=== PATIENT | female | born 1945 | race Caucasian/White ===

== ENCOUNTER 2017-06-22 11:11 | Emergency (ER) | payer MEDICARE, MEDICAID ==
[~2017-06-22] VITALS: Ht 165.1 cm; Wt 63.5 kg
[~2017-06-22 11:11] MED LIST: ACETAMINOPHEN325 M1 ORAL; AMBIEN10 MG ORAL; ATIVAN0.5 MG ORAL; ATIVAN1 MG ORAL; BACLOFEN10 MG ORAL; BACTRIM-DS1 EA ORAL; CATAPRES0.2 MG ORAL; CELEBREX200 MG ORAL; CEPHALEXIN250 M1 ORAL; CLONIDINE0.1 MG GT; CLONIDINE0.1 MG ORAL; ENALAPRIL MALE2.5 MG ORAL; ENALAPRIL MALEA20 MG ORAL; ESCITALOPRAM OX10 MG ORAL; HEPARIN SO5000 UNIT2 SUBQ; INDERAL10 MG ORAL; LORAZEPAM0.5 MG ORAL; LORAZEPAM1 MG ORAL; LYRICA20 MG/1 ML ORAL; LYRICA25 MG ORAL; MIRTAZAPINE15 M3 ORAL; NKM; NORCO 10/3251 EA ORAL; NORCO 5-325 TA1 EACH ORAL; ONDANSETRON4 MG/2 M2 ORAL; OXYCODONE HCL20 M1 ORAL; PERCOCET 5-3251 EACH ORAL; PREVACID15 MG ORAL; PROCHLORPERAZINE5 MG ORAL; PROTONIX40 MG ORAL; SEROQUEL25 MG ORAL; SOMA250 MG ORAL; UNOBMED; VASOTEC10 MG ORAL; VICODIN ES 7.51 EACH ORAL
[2017-06-22 11:24] VITALS: BP 140/64
[2017-06-22] MEDS ORDERED: KEFLEX500 MG ORAL (11:55)
[2017-06-22] MEDS ORDERED: BACTRIM DS TAB1 EAC1 ORAL (11:55)
[2017-06-22] MEDS ORDERED: Lidocaine 1% Plain 30 ml INJ ONE (12:00)
[2017-06-22 12:31] VITALS: BP 144/71
--- NOTE | 2017-06-22 18:47 | Emergency Room Report ---
History of Present Illness General Chief Complaint: Skin Rash/Abscess Source: Patient Present Illness HPI Patient is 72-year-old female who presented after increased rash to her right lower extremity. A rash been noticed today. Patient gradual onset of symptoms. The patient had not been having any fever. She is a prior history of chronic dementia. She had not been vomiting. The patient was having some increase pain to the area Allergies: Coded Allergies: MORPHINE (Verified Allergy, Intermediate, HALLUCINATIONS, 03/03/13) Patient History Past Medical History: see triage record Reviewed Nursing Documentation: PMH: Agreed, PSxH: Agreed Nursing Documentation-PMH Past Medical History: No History, Except For Hx Cardiac Problems: Yes - heart murmur Hx Hypertension: Yes Hx Pacemaker: No Hx Asthma: No Hx COPD: No Hx Diabetes: No Hx Cancer: No Hx Gastrointestinal Problems: No Hx Dialysis: No History Of Psychiatric Problem: No Hx Neurological Problems: No Hx Cerebrovascular Accident: No Hx Dementia: Yes Hx Seizures: No Hx Concentration Difficulty: Yes Hx Dizziness: Yes - Not bad at times Hx Syncope: Yes Hx Headaches: Yes - Migraines Hx Numbness: Yes Hx Weakness: Yes Hx Fatigue: Yes Review of Systems All Other Systems: limited - by mental status Physical Exam Vital Signs Date Time Temp Pulse Resp B/P (MAP) Pulse Ox O2 Delivery O2 Flow Rate FiO2 06/22/17 11:14 98.2 78 14 154/84 98 Room Air General Appearance: well appearing, no apparent distress, alert, GCS 15 Head: normocephalic, atraumatic ENT: hearing grossly normal, normal voice Neck: full range of motion, supple Respiratory: no respiratory distress, speaking full sentences Cardiovascular #1: normal inspection, no edema Musculoskeletal: no calf tenderness Neurologic: normal gait Psychiatric: mood/affect normal Skin: other - fluctuant area to right thigh, erythema Procedures Incision and Drainage Incision and Drainage : Site: right thigh Blade Size: 11 I & D Procedure: betadine prep, sterile drapes applied, sterile dressing applied, gauze wick placed Wound Location: lower extremity Wound's Depth, Shape: superficial Wound Length (cm): 1 Anesthesia: 1% Lidocaine Patient Tolerated: Well Complications: None Medical Decision Making Diagnostic Impression: Primary Impression: Cellulitis of thigh ER Course Patient presented for skin rash. Differential diagnosis included was not limited to abscess, cellulitis, folliculitis. The patient was consented for incision and drainage. There was no purulent material with incision. The patient was given prescription for Bactrim and Keflex. The patient was advised of wound rechecked in 2-3 days Patient is advised to return if any worsening condition or if any changes in status that are concerning. Last Vital Signs Date Time Temp Pulse Resp B/P (MAP) Pulse Ox O2 Delivery O2 Flow Rate FiO2 06/22/17 12:31 98.0 68 19 144/71 94 Room Air Status: improved Disposition: HOME, SELF-CARE Condition: Stable Scripts Trimethoprim/Sulfamethoxazole 160/800* (BACTRIM DS TABLET*) 1 Each Tablet 1 TAB ORAL Q12H, #14 TAB 0 Refills Prov: Ricky Randall 06/22/17 Cephalexin* (KEFLEX*) 500 Mg Capsule 500 MG ORAL Q6H, #28 CAP 0 Refills Prov: Ricky Randall 06/22/17 Referrals: NOT CHOSEN IPA/,REFERRING Patient Instructions: Cellulitis Ricky Randall Jun 22, 2017 18:47
== END 2017-06-22 12:31 | disposition home or self-care (01) ==
LOC: EMR 12:10
DX: L03.115 Cellulitis of right lower limb (principal); I10 Essential (primary) hypertension; F03.90 Unspecified dementia, unspecified severity, without behavioral disturbance, psychotic disturbance, mood disturbance, and anxiety
CPT/HCPCS: 10060; 99284; J2001

== ENCOUNTER 2019-12-06 18:48 | Emergency (ER) | payer MEDICARE, MEDICAID ==
[~2019-12-06] VITALS: Ht 170.2 cm; Wt 72.6 kg
[~2019-12-06 18:48] MED LIST changes: +BACTRIM DS TAB1 EAC1 ORAL; +KEFLEX500 MG ORAL
[2019-12-06] MEDS ORDERED: DONEPEZIL HCL5 M2 ORAL (19:16)
[2019-12-06] MEDS ORDERED: OMEPRAZOLE20 M2 ORAL (19:16)
--- NOTE | 2019-12-06 19:18 | NUR ---
ED Nurse Note: Pt was wheeled in to ED for C/O UTI and due to having UTI, pt hit her left foot to edge of the bed. bruising and swelling noted to left foot.
--- NOTE | 2019-12-06 19:23 | NUR ---
ED Nurse Note: PT taken to x ray
--- NOTE | 2019-12-06 19:42 | Diagnostic Imaging Report ---
EXAM: XR Left Foot Complete, 3 or More Views CLINICAL HISTORY: TRAUMA TECHNIQUE: Frontal, lateral and oblique views of the left foot. COMPARISON: No relevant prior studies available. FINDINGS: There is a nondisplaced fracture of the left fifth proximal phalanx. Forefoot swelling. No radiopaque foreign body. Diffuse osteopenia. Degenerative changes of multiple interphalangeal joints. Mild-moderate osteoarthrosis of the left first MTP joint. Posterior and plantar calcaneal spurs. IMPRESSION: Nondisplaced fracture of the left fifth proximal phalanx.
[2019-12-06] MEDS ORDERED: Tylenol #3 tab (300mg/30mg) ORAL ONE (20:00)
--- NOTE | 2019-12-06 20:06 | NUR ---
ED Nurse Note: splint applied to left foot by drapery cutter
[2019-12-06 20:25] LABS: APPEARANCE,URINE CLEAR; BILIRUBIN, URINE 2+ (NEGATIVE); COLOR,URINE BROWN; GLUCOSE, URINE (UA) NEGATIVE (NEGATIVE); KETONES,URINE NEGATIVE (NEGATIVE); LEUKOCYTE ESTERASE ,URINE NEGATIVE (NEGATIVE); NITRITE,URINE POSITIVE (NEGATIVE); PH,URINE 5 (4.5-8.0); PROTEIN,URINE 1+ (NEGATIVE); UROBILINOGEN,URINE 4 MG/DL (0.0-1.0)
--- NOTE | 2019-12-06 20:33 | Emergency Room Report ---
History of Present Illness General Chief Complaint: Lower Extremity Injury Source: Patient, Family Member Present Illness HPI 74-year-old female with no known significant past medical history is here for left foot pain and swelling due to tripping this morning when trying to get out of bed. Obvious ecchymosis and swelling noted. Has full range of motion of toes. Denies tingling numbness. Denies pain radiation. Also complains of urinary frequency and urgency. Has not taken medication for symptom relief. Denies any abdominal pain, nausea vomiting, fever and chills. Denies chest pain , fever, cough and congestion. Denies taking any blood thinner Allergies: Coded Allergies: MORPHINE (Verified Allergy, Intermediate, HALLUCINATIONS, 03/03/13) COVID-19 Screening Contact w/high risk pt: No Recent Travel to affected area: No Experienced COVID-19 symptoms?: No Patient History Past Medical History: see triage record Past Surgical History: none Pertinent Family History: none Now: No Immunizations: UTD Reviewed Nursing Documentation: PMH: Agreed; PSxH: Agreed Nursing Documentation-PMH Hx Cardiac Problems: Yes - heart murmur Hx Hypertension: Yes Hx Pacemaker: No Hx Asthma: No Hx COPD: No Hx Diabetes: No Hx Cancer: No Hx Gastrointestinal Problems: No Hx Dialysis: No Hx Neurological Problems: No Hx Cerebrovascular Accident: No Hx Dementia: Yes Hx Seizures: No Hx Concentration Difficulty: Yes Hx Dizziness: Yes - Not bad at times Hx Syncope: Yes Hx Headaches: Yes - Migraines Hx Numbness: Yes Hx Weakness: Yes Hx Fatigue: Yes Review of Systems All Other Systems: negative except mentioned in HPI Physical Exam Vital Signs Date Time Temp Pulse Resp B/P (MAP) Pulse Ox O2 Delivery O2 Flow Rate FiO2 12/06/19 19:10 99.1 103 19 152/86 (108) 96 Room Air Sp02 EP Interpretation: reviewed, normal General Appearance: no apparent distress, alert, GCS 15, non-toxic Head: normocephalic, atraumatic Eyes: bilateral eye normal inspection, bilateral eye PERRL ENT: hearing grossly normal, normal pharynx, no angioedema, normal voice Neck: full range of motion, supple/symm/no masses Respiratory: chest non-tender, lungs clear, normal breath sounds, no rhonchi, speaking full sentences Cardiovascular #1: regular rate, rhythm, no edema Cardiovascular #2: 2+ dorsalis pedis (R), 2+ dorsalis pedis (L) Gastrointestinal: normal bowel sounds, non tender, soft, non-distended, no guarding, no rebound Rectal: deferred Genitourinary: no CVA tenderness Musculoskeletal: back normal, tender - Left lateral foot, swelling - Left foot Neurologic: alert, motor strength/tone normal, oriented x3, sensory intact, responsive, speech normal Psychiatric: judgement/insight normal, memory normal, mood/affect normal, no suicidal/homicidal ideation Skin: no rash Lymphatic: no adenopathy Procedures Splinting Splinting : Consent: Verbal Location: Left foot Splint: poserior short Pre-Proc Neuro Vasc Exam: normal Post-Proc Neuro Vasc Exam: normal Patient Tolerated: Well Complications: None Medical Decision Making PA Attestation All diagnoses and treatment plans were reviewed and discussed with my supervising physician Dr. Randolph Diagnostic Impression: Primary Impression: Nondisplaced fracture of fifth left metatarsal bone Additional Impression: UTI (urinary tract infection) ER Course 74-year-old female with no known significant past medical history is here for left foot pain and swelling due to tripping this morning when trying to get out of bed. Obvious ecchymosis and swelling noted. Has full range of motion of toes. Denies tingling numbness. Denies pain radiation. Also complains of urinary frequency and urgency. Has not taken medication for symptom relief. Denies any abdominal pain, nausea vomiting, fever and chills. Denies chest pain , fever, cough and congestion. Denies taking any blood thinner Ddx considered but are not limited to: foot fracture, foot sprain, foot contusion, foot strain Vital signs: are WNL, pt. is afebrile H&PE are most consistent with: Nondisplaced left fifth metatarsal fracture, UTI ORDERS: foot Xray, Keflex, Motrin, Tylenol 3 ED INTERVENTIONS: Motrin, Tylenol 3, Keflex, splinting DISCHARGE: At this time pt. is stable for d/c to home. Will provide printed patient care instructions, and any necessary prescriptions. Care plan and follow up instructions have been discussed with the patient prior to discharge. Patient to follow-up with information assurance specialist, take medication as directed, if worsening symptoms return to the emergency room Other X-Ray Diagnostic Results Other X-Ray Diagnostic Results : X-Ray ordered: Left foot # of Views/Limited Vs Complete: 3 View Indication: Pain EP Interpretation: Yes PA Xray: Interpretation reviewed, by supervising MD, and agrees with findings. Interpretation: other - Fracture left fifth metatarsal Impression: Other - Left fifth metatarsal fracture Electronically Signed by: Анна THOMAS Scribe Text INDINGS: There is a nondisplaced fracture of the left fifth proximal phalanx. Forefoot swelling. No radiopaque foreign body. Diffuse osteopenia. Degenerative changes of multiple interphalangeal joints. Mild-moderate osteoarthrosis of the left first MTP joint. Posterior and plantar calcaneal spurs. IMPRESSION: Nondisplaced fracture of the left fifth proximal phalanx. Last Vital Signs Date Time Temp Pulse Resp B/P (MAP) Pulse Ox O2 Delivery O2 Flow Rate FiO2 12/06/19 19:10 99.1 103 19 152/86 (108) 96 Room Air Disposition: HOME, SELF-CARE Condition: Stable Scripts Ibuprofen* (MOTRIN*) 600 Mg Tablet 600 MG ORAL Q8H PRN for FOR PAIN, #30 TAB 0 Refills Prov: Анна Mccormick 12/06/19 Cephalexin* (KEFLEX*) 500 Mg Capsule 500 MG ORAL EVERY 12 HOURS for 7 Days, #14 CAP 0 Refills Prov: Анна Mccormick 12/06/19 Acetaminophen With Codeine (T#3) (TYLENOL #3 TAB*) Y Tab 1 TAB ORAL BEDTIME PRN for For Pain for 3 Days, #6 TAB Prov: Анна Mccormick 12/06/19 Referrals: NON PHYSICIAN (PCP) Patient Instructions: Metatarsal Fracture With Rehab-SportsMed, Urinary Tract Infection, [id number] Additional Instructions: Take medication as directed, follow-up with information assurance specialist regarding your foot fracture, take splint off if extreme swelling underneath the splint. If worsening symptoms return to the emergency room. Анна Mccormick December 06, 2019 20:33
[2019-12-06] MEDS ORDERED: ACETAMINOPHEN-1 EAC1 ORAL (20:35)
[2019-12-06] MEDS ORDERED: CEPHALEXIN500 MG ORAL (20:35)
[2019-12-06] MEDS ORDERED: IBUPROFEN600 M1 ORAL (20:35)
[2019-12-06] MEDS ORDERED: Cephalexin 500mg cap ORAL ONE (20:45)
[2019-12-06 20:56] VITALS: BP 155/82
--- NOTE | 2019-12-06 20:56 | NUR ---
ER DISCHARGE NOTE: Patient is cleared to be discharged per ERMD, pt is aox4, on room air, with stable vital signs. pt was given dc and prescription instructions, pt was able to verbalize understanding, pt id band removed without complications. pt took all belongings. pt was assisted to prrivate car with hospital w/c.
== END 2019-12-06 20:56 | disposition home or self-care (01) ==
LOC: EMR 19:01
DX: S92.355A Nondisplaced fracture of fifth metatarsal bone, left foot, initial encounter for closed fracture (principal); N39.0 Urinary tract infection, site not specified; W01.0XXA Fall on same level from slipping, tripping and stumbling without subsequent striking against object, initial encounter; Y92.9 Unspecified place or not applicable; Z88.6 Allergy status to analgesic agent; I10 Essential (primary) hypertension; F03.90 Unspecified dementia, unspecified severity, without behavioral disturbance, psychotic disturbance, mood disturbance, and anxiety
CPT/HCPCS: 29515; 81003; 99283

== ENCOUNTER 2019-12-08 14:26 | Inpatient (IN) | payer MEDICARE, MEDICAID ==
[~2019-12-08] VITALS: Ht 165.1 cm; Wt 89.4 kg
[~2019-12-08 14:26] MED LIST changes: +ACETAMINOPHEN-1 EAC1 ORAL; +CEPHALEXIN500 MG ORAL; +DONEPEZIL HCL5 M2 ORAL; +IBUPROFEN600 M1 ORAL; +OMEPRAZOLE20 M2 ORAL
[2019-12-08 14:42] VITALS: BP 112/56
--- NOTE | 2019-12-08 14:42 | NUR ---
pt brought in by family member via w/c assistance. per family member, PT was here 2 days ago and was diagnosed with UTI. PT appears to be more confused today. pt also has a fx to left ankle
--- NOTE | 2019-12-08 14:46 | NUR ---
ED Nurse Note: pt taken to CT
--- NOTE | 2019-12-08 14:57 | NUR ---
ED Nurse Note: back from ct
--- NOTE | 2019-12-08 15:08 | Diagnostic Imaging Report ---
EXAM: CT Head Without Intravenous Contrast CLINICAL HISTORY: ALOC TECHNIQUE: Axial computed tomography images of the head/brain without intravenous contrast. CTDI is 53.4 mGy and DLP is 992.1 mGy-cm. One or more of the following dose reduction techniques were used: automated exposure control, adjustment of the mA and/or kV according to patient size, use of iterative reconstruction technique. COMPARISON: 12/29/2014 FINDINGS: Brain: No acute infarct or hemorrhage identified. No extra-axial fluid collection. No mass effect or midline shift. Scattered areas of hypoattenuation in the supratentorial white matter likely represent chronic small vessel ischemic changes. Ventricles and sulci: Prominence of the ventricles and sulci is likely secondary to cerebral volume loss. Bones: Normal. No bony lesion or fracture. Subcutaneous tissues: Normal. Sinuses: Mild mucosal thickening in the right maxillary sinus. Mastoid air cells: Normal. Orbits: Bilateral lens implants. Other: Cerumen in the external auditory canals. IMPRESSION: 1. No acute intracranial abnormality. 2. Chronic small vessel ischemic changes and cerebral volume loss.
--- NOTE | 2019-12-08 15:15 | Diagnostic Imaging Report ---
EXAM: XR Chest, 1 View CLINICAL HISTORY: PAIN TECHNIQUE: Frontal view of the chest. COMPARISON: Chest radiograph on 10/13/2014 FINDINGS: Hardware: None. Lungs/pleura: Bibasilar opacities may represent atelectasis versus pneumonia. Prominent interstitial lung markings may represent chronic interstitial lung changes versus infectious/inflammatory process versus pulmonary vasculature congestion. No pleural effusion or pneumothorax. Elevation of the right hemidiaphragm, increased compared to prior exam. Heart/mediastinum: Increased enlargement of the cardiac silhouette. Atherosclerotic calcifications of the aorta. Soft tissues: Unremarkable. Bones: No acute fracture. Upper abdomen: Normal. IMPRESSION: Lungs/pleura: Bibasilar opacities may represent atelectasis versus pneumonia. Prominent interstitial lung markings may represent chronic interstitial lung changes versus infectious/inflammatory process versus pulmonary vasculature congestion.
--- NOTE | 2019-12-08 15:35 | NUR ---
ED Nurse Note: urinary catheter 16F was placed, patient tolerated procedure well. Blood and urine specimen collected sent down
[2019-12-08 15:46] LABS: APPEARANCE,URINE SLIGHTLY CLOUDY; BILIRUBIN, URINE 2+ (NEGATIVE); GLUCOSE, URINE (UA) NEGATIVE (NEGATIVE); KETONES,URINE 1+ (NEGATIVE); LEUKOCYTE ESTERASE ,URINE 3+ (NEGATIVE); NITRITE,URINE POSITIVE (NEGATIVE); PH,URINE 5 (4.5-8.0); PROTEIN,URINE 1+ (NEGATIVE); UROBILINOGEN,URINE 1 MG/DL (0.0-1.0)
[2019-12-08 15:48] LABS: BASOPHILS % (AUTO) 0.7 % (0.0-2.0); EOSINOPHILS % (AUTO) 0.3 % (0.0-3.0); HEMATOCRIT 35.5 % (37.0-47.0); LYMPHOCYTES % (AUTO) 11.5 % (20.0-45.0); MEAN CORPUSCULAR VOLUME 97 FL (80-99); MONOCYTES % (AUTO) 5.1 % (1.0-10.0); NEUTROPHILS % (AUTO) 82.4 % (45.0-75.0); PLATELET COUNT 281 K/UL (150-450); RED BLOOD COUNT 3.67 M/UL (4.20-5.40); RED CELL DISTRIBUTION WIDTH 15.2 % (11.6-14.8); WHITE BLOOD COUNT 10.3 K/UL (4.8-10.8)
[2019-12-08 15:50] LABS: COLOR,URINE YELLOW
[2019-12-08 16:00] LABS: ANION GAP 11 mmol/L (5-15); BLOOD UREA NITROGEN 53 mg/dL (7-18); CALCIUM 9.2 MG/DL (8.5-10.1); CARBON DIOXIDE 25 MMOL/L (21-32); CHLORIDE 108 MMOL/L (98-107); CREATININE 3.4 MG/DL (0.55-1.30); POTASSIUM 5.5 MMOL/L (3.5-5.1); SODIUM 144 MMOL/L (136-145)
[2019-12-08 16:04] LABS: INR 0.9 (0.9-1.1)
[2019-12-08 16:14] LABS: ALANINE AMINOTRANSFERASE 73 U/L (12-78); ALBUMIN 3.2 G/DL (3.4-5.0); ALBUMIN/GLOBULIN RATIO 0.7 (1.0-2.7); ALKALINE PHOSPHATASE 225 U/L (46-116); ASPARTATE AMINO TRANSFERASE 80 U/L (15-37); BILIRUBIN,TOTAL 0.4 MG/DL (0.2-1.0); CKMB 1.4 NG/ML (0.0-3.6); CREATINE KINASE 89 U/L (26-308)
[2019-12-08] MEDS ORDERED: Insulin Human Regular 100units/ml 3ml IV ONE (16:15)
[2019-12-08] MEDS ORDERED: Calcium Gluconate 1gm/10ml vial IVP ONE (16:15)
[2019-12-08] MEDS ORDERED: Piperacillin/Tazobactam 3.375 GM in NS 110 ML IVPB ONE (16:15)
--- NOTE | 2019-12-08 16:46 | Emergency Room Report ---
History of Present Illness General Chief Complaint: Generalized Weakness Source: Patient (Анна Mccormick) Present Illness HPI 74-year-old female with history of dementia here complaining of 1 day of low appetite, altered level of consciousness, and low energy. Patient appears to be extremely fatigued. Patient was seen at [facility] 2 days ago for fracture of left foot. Patient was also diagnosed with UTI at that time. According to family member patient did take her antibiotic and took the pain medication as it was prescribed. Patient has been seen by her neurologist last visit 1 month ago and everything within normal limits. According to family member and caregiver patient appears to have this presentation after any UTI. Patient appears to be afebrile, denies chest pain, shortness of breath, cough and congestion. Oxygenation within normal limits. No unilateral generalized weakness noted. According to family member patient has been slurring for a few days. Patient is neurovascularly intact. Splint appears to be intact on left foot and ankle (Анна Mccormick) Allergies: Coded Allergies: MORPHINE (Verified Allergy, Intermediate, HALLUCINATIONS, 03/03/13) COVID-19 Screening Contact w/high risk pt: No Recent Travel to affected area: No Experienced COVID-19 symptoms?: No (Анна Mccormick) Patient History Past Medical History: see triage record Past Surgical History: none Pertinent Family History: none Last Menstrual Period: na Immunizations: UTD Reviewed Nursing Documentation: PMH: Agreed; PSxH: Agreed (Анна Mccormick) Nursing Documentation-PMH Hx Cardiac Problems: Yes - heart murmur Hx Hypertension: Yes Hx Pacemaker: No Hx Asthma: No Hx COPD: No Hx Diabetes: No Hx Cancer: No Hx Gastrointestinal Problems: No Hx Dialysis: No Hx Neurological Problems: No Hx Cerebrovascular Accident: No Hx Dementia: Yes Hx Seizures: No Hx Concentration Difficulty: Yes Hx Dizziness: Yes - Not bad at times Hx Syncope: Yes Hx Headaches: Yes - Migraines Hx Numbness: Yes Hx Weakness: Yes Hx Fatigue: Yes (Анна Mccormick) Review of Systems All Other Systems: negative except mentioned in HPI (Анна Mccormick) Physical Exam Vital Signs Date Time Temp Pulse Resp B/P (MAP) Pulse Ox O2 Delivery O2 Flow Rate FiO2 12/08/19 14:38 97.0 70 19 112/56 (74) 96 Room Air Sp02 EP Interpretation: reviewed, normal General Appearance: moderate distress Head: normocephalic, atraumatic Eyes: bilateral eye normal inspection, bilateral eye PERRL ENT: hearing grossly normal, normal pharynx, no angioedema, normal voice Neck: full range of motion, supple/symm/no masses Respiratory: chest non-tender, lungs clear, normal breath sounds, no rhonchi, no wheezing, speaking full sentences Cardiovascular #1: regular rate, rhythm, no edema, no murmur Cardiovascular #2: 2+ dorsalis pedis (R), 2+ dorsalis pedis (L) Gastrointestinal: normal bowel sounds, non tender, soft, non-distended, no guarding, no rebound Rectal: deferred Genitourinary: no CVA tenderness Musculoskeletal: back normal, no calf tenderness Neurologic: motor strength/tone normal, sensory intact, responsive - Responsive to painful stimuli however does not make sense when spoken to Psychiatric: judgement/insight normal, memory normal, mood/affect normal, no suicidal/homicidal ideation Skin: no rash Lymphatic: no adenopathy (Анна Mccormick) Medical Decision Making PA Attestation All diagnoses and treatment plans were reviewed and discussed with my supervising physician Dr. Villafuerte (Анна Mccormick) PA Attestation I participated in the care of this patient along with WILLIAM Zeng Briefly, this a 74-year-old female recently seen in the emergency department and treated for urinary tract infection 2 days ago coming in for altered mental status and generalized weakness. She is found to have a persistent urinary tract infection and though dimer was also elevated and chest x-ray concerning for possible bilateral opacities consistent with pneumonia. Patient does have an elevated d-dimer and lymphopenic which may represent a COVID-19 infection. She was placed in isolation and COVID swab ordered. IV antibiotics ordered for persistent urinary tract infection. CT scan of the head shows chronic changes but no acute injury, mass or bleed.Creatinine elevated at 3.4 with a BUN elevation of 53 consistent with acute kidney injury in the setting of urinary tract infection. Lactic acid within normal limits troponin negative. Potassium elevated at 5.5 without EKG changes. She was treated with insulin, dextrose and calcium. Receiving IV fluids. Will admit to telemetry relation (Fernie Villafuerte MD) Diagnostic Impression: Primary Impression: Hyperkalemia Additional Impressions: Sepsis ROBYN (acute kidney injury) Pneumonia Suspected 2019 novel coronavirus infection ER Course 74-year-old female with history of dementia here complaining of 1 day of low appetite, altered level of consciousness, and low energy. Patient appears to be extremely fatigued. Patient was seen at [facility] 2 days ago for fracture of left foot. Patient was also diagnosed with UTI at that time. According to family member patient did take her antibiotic and took the pain medication as it was prescribed. Patient has been seen by her neurologist last visit 1 month ago and everything within normal limits. According to family member and caregiver patient appears to have this presentation after any UTI. Patient appears to be afebrile, denies chest pain, shortness of breath, cough and congestion. Oxygenation within normal limits. No unilateral generalized weakness noted. According to family member patient has been slurring for a few days. Patient is neurovascularly intact. Splint appears to be intact on left foot and ankle Ddx considered but are not limited to: CVA, TIA, pulmonary embolism leading to stroke, DVT, hyperkalemia, ROBYN, urosepsis Vital signs: are WNL, pt. is afebrile H&PE are most consistent with: Altered level consciousness most likely secondary to urosepsis, ROBYN and hyperkalemia ORDERS: Head CT no contrast, sepsis work-up ER intervention: NS bolus, Zosyn Patient was admitted with diagnosis of altered level consciousness secondary to urosepsis, hyperkalemia, ROBYN to Dr. Choudhary under supervision of : Christo pt stable at time of admission (Анна Mccormick) EKG Diagnostic Results Rate: normal Rhythm: NSR ST Segments: no acute changes Other Impression No acute ST changes (Анна Mccormick) Chest X-Ray Diagnostic Results Chest X-Ray Diagnostic Results : Chest X-Ray Ordered: Yes # of Views/Limited/Complete: 1 View Indication: Other EP Interpretation: Yes PA Xray: Interpretation reviewed, by supervising MD, and agrees with findings. Interpretation: no consolidation, no effusion, no pneumothorax Impression: No acute disease Electronically Signed by: Анна THOMAS Scribe Text IMPRESSION: Lungs/pleura: Bibasilar opacities may represent atelectasis versus pneumonia. Prominent interstitial lung markings may represent chronic interstitial lung changes versus infectious/inflammatory process versus pulmonary vasculature congestion. (Анна Mccormick) CT/MRI/US Diagnostic Results CT/MRI/US Diagnostic Results : Imaging Test Ordered: CT head no contrast Impression FINDINGS: Brain: No acute infarct or hemorrhage identified. No extra-axial fluid collection. No mass effect or midline shift. Scattered areas of hypoattenuation in the supratentorial white matter likely represent chronic small vessel ischemic changes. Ventricles and sulci: Prominence of the ventricles and sulci is likely secondary to cerebral volume loss. Bones: Normal. No bony lesion or fracture. Subcutaneous tissues: Normal. Sinuses: Mild mucosal thickening in the right maxillary sinus. Mastoid air cells: Normal. Orbits: Bilateral lens implants. Other: Cerumen in the external auditory canals. IMPRESSION: 1. No acute intracranial abnormality. 2. Chronic small vessel ischemic changes and cerebral volume loss. (Анна Mccormick) Last Vital Signs Date Time Temp Pulse Resp B/P (MAP) Pulse Ox O2 Delivery O2 Flow Rate FiO2 12/08/19 14:42 97.0 70 19 112/56 96 Room Air (Анна Mccormick) Disposition: ADMITTED INPATIENT Condition: Stable Referrals: NOT CHOSEN IPA/,REFERRING (PCP) Анна Mccormick December 08, 2019 16:46 Fernie Villafuerte MD December 08, 2019 16:57
--- NOTE | 2019-12-08 18:05 | NUR ---
ED Nurse Note: Due to PUI patient was transfered from bed 02 to bed 07.
[2019-12-08 18:29] VITALS: BP 115/65
--- NOTE | 2019-12-08 18:45 | NUR ---
ED Nurse Note: Patient'sat went down to 88, placed patient on 2L via NC
--- NOTE | 2019-12-08 18:57 | NUR ---
ED Nurse Note: Patient BS droped to 70, 50% Dextrose was administered, will recheck BS in 15 min
--- NOTE | 2019-12-08 19:07 | NUR ---
HAND-OFF: Report given to KARTHIKEYAN Saucedo.
[2019-12-08 20:00] VITALS: BP 115/65
[2019-12-08] MEDS: Cefepime HCl 1 GM in D5W 55 ML IVPB SCH (20:30)
[2019-12-08 21:00] VITALS: BP 136/93
--- NOTE | 2019-12-08 21:00 | NUR ---
TRANSFER TO FLOOR: Patient transferred to as ordered, per Dr Fox. Report given to KARTHIKEYAN Falcon. Belongings and medications given to . Family and or S/O informed of transfer.
--- NOTE | 2019-12-08 21:00 | NUR ---
NURSE NOTES: Received report from KARTHIKEYAN Saucedo ED. Patient was transferred from ED to Telemetry via gurney accompanied by 1 staff member, without any incident. Patient was transferred to hospital bed via draw sheet method, placed on semi love's, gown changed, placed tele box on, SR on the monitor, 68bpm. Checked IV site and flushed. No erythema, bleeding or infiltration noted. With aranda catheter draining well to gravity. Body assessment done with no skin issues. Patient has a cast at left foot. Belongings list checked with transferring RN. Bed at lowest position, brakes on, bed alarm on, [id number]. Frequent rounding for safety needs.Call light within reach. Will continue to monitor. Received admitting orders from Dr. Choudhary.
--- NOTE | 2019-12-08 21:35 | Infectious Diseases Prog Note ---
Assessment/Plan Problems: (1) UTI (urinary tract infection) Assessment & Plan: Start cefepime empiric coverage pending urine culture (2) Dehydration Assessment & Plan: Continue IV fluid for hydration with close monitoring of electrolytes (3) Episode of generalized weakness Assessment & Plan: Suspect due to the above continue hydration and antibiotics avoid narcotics (4) Altered mental state Assessment & Plan: Suspect due to the above with dehydration and renal failure continue supportive care with fluid and antibiotics monitor closely in telemetry (5) ROBYN (acute kidney injury) Assessment & Plan: Suspect nonsteroidal anti-inflammatory medications induced with dehydration, continue hydration avoid nephrotoxic's, renal eval Subjective Allergies: Coded Allergies: MORPHINE (Verified Allergy, Intermediate, HALLUCINATIONS, 03/03/13) Objective Vital Signs Last 24 Hour Vital Signs Date Time Temp Pulse Resp B/P (MAP) Pulse Ox O2 Delivery O2 Flow Rate FiO2 12/08/19 18:29 98.4 74 19 115/65 96 Room Air 12/08/19 14:42 97.0 70 19 112/56 96 Room Air 12/08/19 14:42 70 19 Room Air 12/08/19 14:38 97.0 70 19 112/56 (74) 96 Room Air Height (Feet): 5 Height (Inches): 5.00 Weight (Pounds): 200 Laboratory Tests Test 12/08/19 15:25 White Blood Count 10.3 K/UL (4.8-10.8) Red Blood Count 3.67 M/UL (4.20-5.40) L Hemoglobin 11.0 G/DL (12.0-16.0) L Hematocrit 35.5 % (37.0-47.0) L Mean Corpuscular Volume 97 FL (80-99) Mean Corpuscular Hemoglobin 29.9 PG (27.0-31.0) Mean Corpuscular Hemoglobin Concent 30.9 G/DL (32.0-36.0) L Red Cell Distribution Width 15.2 % (11.6-14.8) H Platelet Count 281 K/UL (150-450) Mean Platelet Volume 9.5 FL (6.5-10.1) Neutrophils (%) (Auto) 82.4 % (45.0-75.0) H Lymphocytes (%) (Auto) 11.5 % (20.0-45.0) L Monocytes (%) (Auto) 5.1 % (1.0-10.0) Eosinophils (%) (Auto) 0.3 % (0.0-3.0) Basophils (%) (Auto) 0.7 % (0.0-2.0) Prothrombin Time 9.5 SEC (9.30-11.50) Prothromb Time International Ratio 0.9 (0.9-1.1) Activated Partial Thromboplast Time 27 SEC (23-33) D-Dimer 7.56 mg/L FEU (0.00-0.49) H Urine Color Yellow Urine Appearance Slightly cloudy Urine pH 5 (4.5-8.0) Urine Specific [place] 1.020 (1.005-1.035) Urine Protein 1+ (NEGATIVE) H Urine Glucose (UA) Negative (NEGATIVE) Urine Ketones 1+ (NEGATIVE) H Urine Blood Negative (NEGATIVE) Urine Nitrite Positive (NEGATIVE) H Urine Bilirubin 2+ (NEGATIVE) H Urine Ictotest Negative (NEGATIVE) Urine Urobilinogen 1 MG/DL (0.0-1.0) H Urine Leukocyte Esterase 3+ (NEGATIVE) H Urine RBC 0 /HPF (0 - 2) Urine WBC 60-80 /HPF (0 - 2) H Urine Squamous Epithelial Cells Many /LPF (NONE/OCC) H Urine Bacteria Many /HPF (NONE) H Urine Random Sodium Pending Sodium Level 144 MMOL/L (136-145) Potassium Level 5.5 MMOL/L (3.5-5.1) H Chloride Level 108 MMOL/L (98-107) H Carbon Dioxide Level 25 MMOL/L (21-32) Anion Gap 11 mmol/L (5-15) Blood Urea Nitrogen 53 mg/dL (7-18) H Creatinine 3.4 MG/DL (0.55-1.30) H Estimat Glomerular Filtration Rate 13.1 mL/min (>60) Glucose Level 95 MG/DL (74-106) Lactic Acid Level 0.90 mmol/L (0.4-2.0) Calcium Level 9.2 MG/DL (8.5-10.1) Total Bilirubin 0.4 MG/DL (0.2-1.0) Aspartate Amino Transf (AST/SGOT) 80 U/L (15-37) H Alanine Aminotransferase (ALT/SGPT) 73 U/L (12-78) Alkaline Phosphatase 225 U/L (46-116) H Total Creatine Kinase 89 U/L (26-308) Creatine Kinase MB 1.4 NG/ML (0.0-3.6) Creatine Kinase MB Relative Index 1.5 Troponin I 0.000 ng/mL (0.000-0.056) Pro-B-Type Natriuretic Peptide 618 pg/mL (0-125) H Total Protein 7.5 G/DL (6.4-8.2) Albumin 3.2 G/DL (3.4-5.0) L Globulin 4.3 g/dL Albumin/Globulin Ratio 0.7 (1.0-2.7) L Urine Opiates Screen Positive (NEGATIVE) H Urine Barbiturates Screen Negative (NEGATIVE) Phencyclidine (PCP) Screen Negative (NEGATIVE) Urine Amphetamines Screen Negative (NEGATIVE) Urine Benzodiazepines Screen Negative (NEGATIVE) Urine Cocaine Screen Negative (NEGATIVE) Urine Marijuana (THC) Screen Negative (NEGATIVE) Current Medications Medications (Trade) Dose Ordered Sig/Myron Route PRN Reason Start Time Stop Time Status Last Admin Dose Admin Cefepime HCl 1 gm/ Dextrose 55 ml @ 110 mls/hr Q24H IVPB 12/08/19 21:00 12/15/19 20:59 12/08/19 20:30 Reece Rocha M.D. December 08, 2019 21:35
[2019-12-08] MEDS ORDERED: Cefepime HCl 1 GM in D5W 55 ML IVPB SCH (21:45)
[2019-12-08] MEDS ORDERED: Hydromorphone 0.5mg/0.5ml inj IVP PRN (22:00)
[2019-12-08] MEDS ORDERED: Sodium Polystyrene Sulfonate 15gm Powder ORAL SCH (22:00)
[2019-12-08] MEDS ORDERED: Piperacillin/Tazobactam 3.375 GM in NS 110 ML IVPB SCH (22:00)
[2019-12-08] MEDS ORDERED: HYDROcodone/Acetamin 5/325 tab ORAL PRN (22:00)
[2019-12-09] VITALS: BP 129/91
[2019-12-09] MEDS: LORazepam Inj 2mg/ml 1ml IV PRN (00:32)
[2019-12-09 04:00] VITALS: BP 124/81
[2019-12-09] MEDS: NovoLOG Insulin Flexpen SUBQ SCH ×4 (06:30→21:00)
[2019-12-09 07:36] LABS: BASOPHILS % (AUTO) 0.6 % (0.0-2.0); EOSINOPHILS % (AUTO) 1.1 % (0.0-3.0); HEMATOCRIT 34.8 % (37.0-47.0); HEMOGLOBIN 11.1 G/DL (12.0-16.0); LYMPHOCYTES % (AUTO) 18.1 % (20.0-45.0); MEAN CORPUSCULAR VOLUME 92 FL (80-99); MONOCYTES % (AUTO) 10.1 % (1.0-10.0); NEUTROPHILS % (AUTO) 70.2 % (45.0-75.0); PLATELET COUNT 244 K/UL (150-450); RED BLOOD COUNT 3.79 M/UL (4.20-5.40); RED CELL DISTRIBUTION WIDTH 14.2 % (11.6-14.8); WHITE BLOOD COUNT 10.6 K/UL (4.8-10.8)
--- NOTE | 2019-12-09 07:45 | NUR ---
HAND-OFF: Report given to [employer]. Plan of care endorsed.
[2019-12-09 08:00] VITALS: BP 143/91
[2019-12-09] MEDS: D5 1/2NS 1,000 ML IV SCH (08:08)
--- NOTE | 2019-12-09 08:12 | Consultation ---
Consult Note Consult Note I am asked to evaluate the patient at the request of Dr. Choudhary for renal failure Patient is confused and a poor historian Emergency room note: Chief Complaint: Generalized Weakness 74-year-old female with history of dementia here complaining of 1 day of low appetite, altered level of consciousness, and low energy. Patient appears to be extremely fatigued. Patient was seen at [place] [facility] 2 days ago for fracture of left foot. Patient was also diagnosed with UTI at that time. According to family member patient did take her antibiotic and took the pain medication as it was prescribed. Patient has been seen by her neurologist last visit 1 month ago and everything within normal limits. According to family member and caregiver patient appears to have this presentation after any UTI. Patient appears to be afebrile, denies chest pain, shortness of breath, cough and congestion. Oxygenation within normal limits. No unilateral generalized weakness noted. According to family member patient has been slurring for a few days. Patient is neurovascularly intact. Splint appears to be intact on left foot and ankle Allergies: MORPHINE (Verified Allergy, Intermediate, HALLUCINATIONS, 03/03/13) COVID-19 Screening Contact w/high risk pt: No Recent Travel to affected area: No Experienced COVID-19 symptoms?: No Hx Cardiac Problems: Yes - heart murmur Hx Hypertension: Yes Hx Dementia: Yes Hx Concentration Difficulty: Yes Hx Dizziness: Yes - Not bad at times Hx Syncope: Yes Hx Headaches: Yes - Migraines Hx Numbness: Yes Hx Weakness: Yes Hx Fatigue: Yes Patient examined Records data reviewed Assessment/Plan Renal failure most likely acute on chronic, patient medication list included Celebrex and ibuprofen Sepsis, pneumonia, suspected COVID-19 infection Hyperkalemia on presentation to the ER Anemia UTI Toxic metabolic encephalopathy with history of dementia Start slow hydration Hold nonsteroidal anti-inflammatories Avoid nephrotoxic's Monitor renal parameters and urine output Castillo catheter Kidney ultrasound Anemia work-up Per orders Brendan Elena MD December 09, 2019 08:11
[2019-12-09 08:18] LABS: ALANINE AMINOTRANSFERASE 57 U/L (12-78); ALBUMIN 2.8 G/DL (3.4-5.0); ALBUMIN/GLOBULIN RATIO 0.7 (1.0-2.7); ALKALINE PHOSPHATASE 200 U/L (46-116); ANION GAP 10 mmol/L (5-15); ASPARTATE AMINO TRANSFERASE 49 U/L (15-37); BILIRUBIN,TOTAL 0.3 MG/DL (0.2-1.0); BLOOD UREA NITROGEN 54 mg/dL (7-18); CALCIUM 9.1 MG/DL (8.5-10.1); CARBON DIOXIDE 23 MMOL/L (21-32); CHLORIDE 111 MMOL/L (98-107); CHOLESTEROL 171 MG/DL (< 200); CREATININE 2.8 MG/DL (0.55-1.30); FERRITIN 78 NG/ML (8-388); GAMMA GLUTAMYL TRANSPEPTIDASE 43 U/L (5-85); HDL CHOLESTEROL 47 MG/DL (40-60); LACTATE DEHYDROGENASE 174 U/L (81-234); PHOSPHORUS 6.1 MG/DL (2.5-4.9); POTASSIUM 5.3 MMOL/L (3.5-5.1); SODIUM 144 MMOL/L (136-145); TRIGLYCERIDES 119 MG/DL (30-150)
[2019-12-09 08:47] LABS: % IRON SATURATION 21 % (15-50); IRON 54 ug/dL (50-175); TOTAL IRON BINDING CAPACITY 254 ug/dL (250-450)
[2019-12-09] MEDS: Docusate 100mg cap ORAL SCH ×3 (09:00→18:00)
[2019-12-09] MEDS: Heparin 5000 units/ml inj SUBQ SCH ×2 (09:00→23:21)
--- NOTE | 2019-12-09 10:20 | History & Physical ---
History and Physical History & Physicial Dictation completed on 1016 hours Jania Choudhary MD December 09, 2019 10:20
--- NOTE | 2019-12-09 10:21 | General Progress Note ---
Assessment/Plan Assessment/Plan: 1- Acute metabolic encephalopathy 2- Pulmonary infiltrate- COVID isolation 3- Psych Plan: Current empirical abx ID Nephro Pulmonary Notified Subjective Allergies: Coded Allergies: MORPHINE (Verified Allergy, Intermediate, HALLUCINATIONS, 03/03/13) Objective Last 24 Hour Vital Signs Date Time Temp Pulse Resp B/P (MAP) Pulse Ox O2 Delivery O2 Flow Rate FiO2 12/09/19 04:00 97.7 77 18 124/81 (95) 97 12/09/19 04:00 57 12/09/19 00:00 55 12/09/19 00:00 97.5 83 18 129/91 (104) 97 12/08/19 22:21 Room Air 12/08/19 21:39 98.6 78 16 115/65 96 Room Air 12/08/19 21:30 68 12/08/19 21:00 97.7 81 20 136/93 (107) 99 12/08/19 20:00 98.6 78 16 115/65 96 Room Air 12/08/19 18:29 98.4 74 19 115/65 96 Room Air 12/08/19 14:42 97.0 70 19 112/56 96 Room Air 12/08/19 14:42 70 19 Room Air 12/08/19 14:38 97.0 70 19 112/56 (74) 96 Room Air Intake and Output 12/08/19 12/09/19 19:00 07:00 Intake Total 1000 ml Output Total 500 ml 550 ml Balance 500 ml -550 ml Intake IV Total 1000 ml Output Urine Total 500 ml 550 ml # Bowel Movements 1 Laboratory Tests 12/08/19 15:25: White Blood Count 10.3, Red Blood Count 3.67L, Hemoglobin 11.0L, Hematocrit 35.5L, Mean Corpuscular Volume 97, Mean Corpuscular Hemoglobin 29.9, Mean Corpuscular Hemoglobin Concent 30.9L, Red Cell Distribution Width 15.2H, Platelet Count 281, Mean Platelet Volume 9.5, Neutrophils (%) (Auto) 82.4H, Lymphocytes (%) (Auto) 11.5L, Monocytes (%) (Auto) 5.1, Eosinophils (%) (Auto) 0.3, Basophils (%) (Auto) 0.7, Prothrombin Time 9.5, Prothromb Time International Ratio 0.9, Activated Partial Thromboplast Time 27, D-Dimer 7.56H, Urine Color Yellow, Urine Appearance Slightly cloudy, Urine pH 5, Urine Specific [place] 1.020, Urine Protein 1+H, Urine Glucose (UA) Negative, Urine Ketones 1+H, Urine Blood Negative, Urine Nitrite PositiveH, Urine Bilirubin 2+H , Urine Ictotest Negative, Urine Urobilinogen 1H, Urine Leukocyte Esterase 3+H, Urine RBC 0, Urine WBC 60-80H, Urine Squamous Epithelial Cells ManyH, Urine Bacteria ManyH, Urine Random Sodium 45, Sodium Level 144, Potassium Level 5.5H, Chloride Level 108H, Carbon Dioxide Level 25, Anion Gap 11, Blood Urea Nitrogen 53H, Creatinine 3.4H, Estimat Glomerular Filtration Rate 13.1, Glucose Level 95 , Lactic Acid Level 0.90, Calcium Level 9.2, Total Bilirubin 0.4, Aspartate Amino Transf (AST/SGOT) 80H, Alanine Aminotransferase (ALT/SGPT) 73, Alkaline Phosphatase 225H, Total Creatine Kinase 89, Creatine Kinase MB 1.4, Creatine Kinase MB Relative Index 1.5, Troponin I 0.000, Pro-B-Type Natriuretic Peptide 618H, Total Protein 7.5, Albumin 3.2L, Globulin 4.3, Albumin/Globulin Ratio 0.7L , Urine Opiates Screen PositiveH, Urine Barbiturates Screen Negative, Phencyclidine (PCP) Screen Negative, Urine Amphetamines Screen Negative, Urine Benzodiazepines Screen Negative, Urine Cocaine Screen Negative, Urine Marijuana (THC) Screen Negative 12/09/19 06:33: White Blood Count 10.6, Red Blood Count 3.79L, Hemoglobin 11.1L, Hematocrit 34.8L, Mean Corpuscular Volume 92, Mean Corpuscular Hemoglobin 29.2, Mean Corpuscular Hemoglobin Concent 31.8L, Red Cell Distribution Width 14.2, Platelet Count 244, Mean Platelet Volume 7.6, Neutrophils (%) (Auto) 70.2, Lymphocytes (%) (Auto) 18.1L, Monocytes (%) (Auto) 10.1H, Eosinophils (%) (Auto ) 1.1, Basophils (%) (Auto) 0.6, Sodium Level 144, Potassium Level 5.3H, Chloride Level 111H, Carbon Dioxide Level 23, Anion Gap 10, Blood Urea Nitrogen 54H, Creatinine 2.8H, Estimat Glomerular Filtration Rate 16.4, Glucose Level 92 , Calcium Level 9.1, Total Bilirubin 0.3, Aspartate Amino Transf (AST/SGOT) 49H , Alanine Aminotransferase (ALT/SGPT) 57, Alkaline Phosphatase 200H, Troponin I 0.000, Pro-B-Type Natriuretic Peptide 695H, Total Protein 7.1, Albumin 2.8L, Globulin 4.3, Albumin/Globulin Ratio 0.7L, Hemoglobin A1c 6.0, Uric Acid 8.8H, Phosphorus Level 6.1H, Magnesium Level 2.6H, Iron Level 54, Total Iron Binding Capacity 254, Percent Iron Saturation 21, Unsaturated Iron Binding 200, Ferritin 78, Gamma Glutamyl Transpeptidase 43, Lactate Dehydrogenase 174, C- Reactive Protein, Quantitative 6.2H, Triglycerides Level 119, Cholesterol Level 171, LDL Cholesterol 109H, HDL Cholesterol 47, Cholesterol/HDL Ratio 3.6, Vitamin B12 Level 140L, Folate 17.3, Thyroid Stimulating Hormone (TSH) 0.269L Height (Feet): 5 Height (Inches): 5.00 Weight (Pounds): 200 Jania Choudhary MD December 09, 2019 10:21
[2019-12-09] MEDS ORDERED: Sodium Polystyrene Sulfonate 15gm Powder ORAL SCH (11:45)
[2019-12-09 12:00] VITALS: BP 135/91
--- NOTE | 2019-12-09 13:13 | Consultation ---
History of Present Illness General Date patient seen: December 08, 2019 Time patient seen: 18:20 Chief Complaint: Generalized Weakness, altered mental status Referring physician: Dr. Kenrick Dubois Reason for Consultation: UTI possible sepsis rule out CO VID 19 infection Present Illness HPI This is a 74-year-old female with past medical history of dementia cardiac disease, hypertension, syncope, weakness was sent to [facility] emergency room for poor oral intake altered mental status and generalized weakness for the last 24 hours patient was so lethargic and fatigued as per the family who take care of the patient normally and she visited the [place] emergency room 2 days prior for fracture of the left foot at that time she was diagnosed with urine tract infection and she was prescribed antibiotics and nonsteroidal anti-inflammatory medication for pain control which she took both as per the report from the family, she had no fever shortness of breath cough or congestion and her oxygenation has been within normal limit, and her vital signs were stable in ER. Patient had extensive workup in the emergency room revealed evidence of urine tract infection and her chest x-ray showed bilateral basal atelectases with interstitial markings so infectious disease consultation was requested for antibiotics treatment and further management. As of note the patient was nonverbal and could not provide any history most details were obtained from the medical record and nursing staff Allergies: Coded Allergies: MORPHINE (Verified Allergy, Intermediate, HALLUCINATIONS, 03/03/13) Medication History Scheduled Baclofen* (Baclofen*), 10 MG ORAL THREE TIMES A DAY, (Reported) Celecoxib* (Celebrex*), 200 MG ORAL TWICE A DAY Cephalexin* (Keflex*), 500 MG ORAL Q6H Cephalexin* (Keflex*), 500 MG ORAL EVERY 12 HOURS Donepezil Hcl* (Donepezil Hcl*), 5 MG ORAL DAILY, (Reported) Enalapril Maleate* (Enalapril Maleate*), 20 MG ORAL EVERY 12 HOURS, (Reported) Escitalopram Oxalate (Escitalopram Oxalate*), 10 MG ORAL DAILY, (Reported) Lansoprazole* (Prevacid*), 15 MG ORAL DAILY, (Reported) Lorazepam* (Lorazepam*), 1 MG ORAL BEDTIME, (Reported) Lorazepam* (Ativan*), 1 MG ORAL THREE TIMES A DAY Omeprazole (Omeprazole), 20 MG ORAL DAILY, (Reported) Pregabalin (Lyrica), 50 MG ORAL TID Trimethoprim/Sulfamethoxazole 160/800* (Bactrim Ds Tablet*), 1 TAB ORAL Q12H Scheduled PRN Acetaminophen With Codeine (T#3) (Tylenol #3 Tab*), 1 TAB ORAL BEDTIME PRN for For Pain Hydrocodone Bit/Acetaminophen 5-325* ([place] 5-325*), 1 TAB ORAL Q6H PRN for For Pain Hydrocodone Bit/Acetaminophen 5-325* ([place] 5-325*), 1 TAB ORAL Q6H PRN for For Pain Hydrocodone/Acetaminophen (Hydrocodon-Acetaminophn 10-325), 1 TAB ORAL QID PRN for For Pain, (Reported) Hydrocodone/Acetaminophen (Hydrocodon-Acetaminophn 10-325), Unknown Dose ORAL Q4H PRN for For Pain, (Reported) Ibuprofen* (Motrin*), 600 MG ORAL Q8H PRN for FOR PAIN Miscellaneous Medications Clonidine HCl (Clonidine HCl), 0.1 MG GT, (Reported) Lorazepam* (Ativan*), Unknown Dose ORAL, (Reported) Oxycodone Hcl (Oxycodone Hcl), Unknown Dose ORAL, (Reported) Patient History Limited by: medical condition, other - Unresponsiveness History Provided By: Medical Record, EMS, Caregiver Healthcare decision maker Resuscitation status Advanced Directive on File Past Medical/Surgical History Past Medical/Surgical History: (1) Hypertension (2) chest pain acs (3) UTI (urinary tract infection) Review of Systems Constitutional: Reports: malaise, weakness Eye: Reports: no symptoms ENT: Reports: no symptoms Respiratory: Reports: no symptoms Cardiovascular: Reports: no symptoms Gastrointestinal: Reports: no symptoms Genitourinary: Reports: no symptoms Musculoskeletal: Reports: joint pain, muscle pain Skin: Reports: no symptoms Neurological: Reports: other - Altered mental status Endocrine: Reports: no symptoms Hematologic/Lymphatic: Reports: no symptoms Physical Exam General Appearance: no apparent distress, lethargic, confused - Altered, obese , other Lines, tubes and drains: peripheral HEENT: normocephalic, atraumatic, anicteric, mucous membranes moist, PERRL Neck: non-tender, normal alignment, supple, normal inspection, abnormal alignment Respiratory/Chest: lungs clear, normal breath sounds, no respiratory distress, no accessory muscle use Cardiovascular/Chest: normal peripheral pulses, normal rate, regular rhythm, no gallop/murmur, no JVD Abdomen: normal bowel sounds, non tender, no organomegaly, no mass Genitourinary/Rectal: normal genital exam Extremities: calf tenderness, trace edema Skin Exam: normal pigmentation, warm/dry Neurologic: unresponsiveness Musculoskeletal: normal muscle bulk Last 24 Hour Vital Signs Date Time Temp Pulse Resp B/P (MAP) Pulse Ox O2 Delivery O2 Flow Rate FiO2 12/09/19 04:00 97.7 77 18 124/81 (95) 97 12/09/19 04:00 57 12/09/19 00:00 55 12/09/19 00:00 97.5 83 18 129/91 (104) 97 12/08/19 22:21 Room Air 12/08/19 21:39 98.6 78 16 115/65 96 Room Air 12/08/19 21:30 68 12/08/19 21:00 97.7 81 20 136/93 (107) 99 12/08/19 20:00 98.6 78 16 115/65 96 Room Air 12/08/19 18:29 98.4 74 19 115/65 96 Room Air 12/08/19 14:42 97.0 70 19 112/56 96 Room Air 12/08/19 14:42 70 19 Room Air 12/08/19 14:38 97.0 70 19 112/56 (74) 96 Room Air Intake and Output 12/08/19 12/09/19 19:00 07:00 Intake Total 1000 ml Output Total 500 ml 550 ml Balance 500 ml -550 ml Intake IV Total 1000 ml Output Urine Total 500 ml 550 ml # Bowel Movements 1 Laboratory Tests Test 12/08/19 15:25 12/09/19 06:33 White Blood Count 10.3 K/UL (4.8-10.8) 10.6 K/UL (4.8-10.8) Red Blood Count 3.67 M/UL (4.20-5.40) L 3.79 M/UL (4.20-5.40) L Hemoglobin 11.0 G/DL (12.0-16.0) L 11.1 G/DL (12.0-16.0) L Hematocrit 35.5 % (37.0-47.0) L 34.8 % (37.0-47.0) L Mean Corpuscular Volume 97 FL (80-99) 92 FL (80-99) Mean Corpuscular Hemoglobin 29.9 PG (27.0-31.0) 29.2 PG (27.0-31.0) Mean Corpuscular Hemoglobin Concent 30.9 G/DL (32.0-36.0) L 31.8 G/DL (32.0-36.0) L Red Cell Distribution Width 15.2 % (11.6-14.8) H 14.2 % (11.6-14.8) Platelet Count 281 K/UL (150-450) 244 K/UL (150-450) Mean Platelet Volume 9.5 FL (6.5-10.1) 7.6 FL (6.5-10.1) Neutrophils (%) (Auto) 82.4 % (45.0-75.0) H 70.2 % (45.0-75.0) Lymphocytes (%) (Auto) 11.5 % (20.0-45.0) L 18.1 % (20.0-45.0) L Monocytes (%) (Auto) 5.1 % (1.0-10.0) 10.1 % (1.0-10.0) H Eosinophils (%) (Auto) 0.3 % (0.0-3.0) 1.1 % (0.0-3.0) Basophils (%) (Auto) 0.7 % (0.0-2.0) 0.6 % (0.0-2.0) Prothrombin Time 9.5 SEC (9.30-11.50) Prothromb Time International Ratio 0.9 (0.9-1.1) Activated Partial Thromboplast Time 27 SEC (23-33) D-Dimer 7.56 mg/L FEU (0.00-0.49) H Urine Color Yellow Urine Appearance Slightly cloudy Urine pH 5 (4.5-8.0) Urine Specific [place] 1.020 (1.005-1.035) Urine Protein 1+ (NEGATIVE) H Urine Glucose (UA) Negative (NEGATIVE) Urine Ketones 1+ (NEGATIVE) H Urine Blood Negative (NEGATIVE) Urine Nitrite Positive (NEGATIVE) H Urine Bilirubin 2+ (NEGATIVE) H Urine Ictotest Negative (NEGATIVE) Urine Urobilinogen 1 MG/DL (0.0-1.0) H Urine Leukocyte Esterase 3+ (NEGATIVE) H Urine RBC 0 /HPF (0 - 2) Urine WBC 60-80 /HPF (0 - 2) H Urine Squamous Epithelial Cells Many /LPF (NONE/OCC) H Urine Bacteria Many /HPF (NONE) H Urine Random Sodium 45 mmol/L (20-110) Sodium Level 144 MMOL/L (136-145) 144 MMOL/L (136-145) Potassium Level 5.5 MMOL/L (3.5-5.1) H 5.3 MMOL/L (3.5-5.1) H Chloride Level 108 MMOL/L (98-107) H 111 MMOL/L (98-107) H Carbon Dioxide Level 25 MMOL/L (21-32) 23 MMOL/L (21-32) Anion Gap 11 mmol/L (5-15) 10 mmol/L (5-15) Blood Urea Nitrogen 53 mg/dL (7-18) H 54 mg/dL (7-18) H Creatinine 3.4 MG/DL (0.55-1.30) H 2.8 MG/DL (0.55-1.30) H Estimat Glomerular Filtration Rate 13.1 mL/min (>60) 16.4 mL/min (>60) Glucose Level 95 MG/DL (74-106) 92 MG/DL (74-106) Lactic Acid Level 0.90 mmol/L (0.4-2.0) Calcium Level 9.2 MG/DL (8.5-10.1) 9.1 MG/DL (8.5-10.1) Total Bilirubin 0.4 MG/DL (0.2-1.0) 0.3 MG/DL (0.2-1.0) Aspartate Amino Transf (AST/SGOT) 80 U/L (15-37) H 49 U/L (15-37) H Alanine Aminotransferase (ALT/SGPT) 73 U/L (12-78) 57 U/L (12-78) Alkaline Phosphatase 225 U/L (46-116) H 200 U/L (46-116) H Total Creatine Kinase 89 U/L (26-308) Creatine Kinase MB 1.4 NG/ML (0.0-3.6) Creatine Kinase MB Relative Index 1.5 Troponin I 0.000 ng/mL (0.000-0.056) 0.000 ng/mL (0.000-0.056) Pro-B-Type Natriuretic Peptide 618 pg/mL (0-125) H 695 pg/mL (0-125) H Total Protein 7.5 G/DL (6.4-8.2) 7.1 G/DL (6.4-8.2) Albumin 3.2 G/DL (3.4-5.0) L 2.8 G/DL (3.4-5.0) L Globulin 4.3 g/dL 4.3 g/dL Albumin/Globulin Ratio 0.7 (1.0-2.7) L 0.7 (1.0-2.7) L Urine Opiates Screen Positive (NEGATIVE) H Urine Barbiturates Screen Negative (NEGATIVE) Phencyclidine (PCP) Screen Negative (NEGATIVE) Urine Amphetamines Screen Negative (NEGATIVE) Urine Benzodiazepines Screen Negative (NEGATIVE) Urine Cocaine Screen Negative (NEGATIVE) Urine Marijuana (THC) Screen Negative (NEGATIVE) Hemoglobin A1c 6.0 % (4.3-6.0) Uric Acid 8.8 MG/DL (2.6-7.2) H Phosphorus Level 6.1 MG/DL (2.5-4.9) H Magnesium Level 2.6 MG/DL (1.8-2.4) H Iron Level 54 ug/dL (50-175) Total Iron Binding Capacity 254 ug/dL (250-450) Percent Iron Saturation 21 % (15-50) Unsaturated Iron Binding 200 ug/dL (112-346) Ferritin 78 NG/ML (8-388) Gamma Glutamyl Transpeptidase 43 U/L (5-85) Lactate Dehydrogenase 174 U/L (81-234) C-Reactive Protein, Quantitative 6.2 mg/dL (0.00-0.90) H Triglycerides Level 119 MG/DL (30-150) Cholesterol Level 171 MG/DL (< 200) LDL Cholesterol 109 mg/dL (<100) H HDL Cholesterol 47 MG/DL (40-60) Cholesterol/HDL Ratio 3.6 (3.3-4.4) Vitamin B12 Level 140 PG/ML (193-986) L Folate 17.3 NG/ML (8.6-58.9) Thyroid Stimulating Hormone (TSH) 0.269 uiU/mL (0.358-3.740) Microbiology Date/Time Source Procedure Growth Status 12/08/19 15:25 Urine,Clean Catch Urine Culture - Preliminary NO GROWTH Resulted 12/09/19 02:40 Rectum Received Height (Feet): 5 Height (Inches): 5.00 Weight (Pounds): 200 Medications Current Medications Medications (Trade) Dose Ordered Sig/Ymron Route PRN Reason Start Time Stop Time Status Last Admin Dose Admin Acetaminophen (Tylenol) 650 mg Q6H PRN ORAL Mild Pain (Pain Scale 1-3) 12/08/19 21:45 01/07/20 21:44 Acetaminophen/ Hydrocodone Bitart ([place] 5/325) 1 tab Q6H PRN ORAL Moderate Pain (Pain Scale 4-6) 12/08/19 22:00 12/15/19 21:59 Cefepime HCl 1 gm/ Dextrose 55 ml @ 110 mls/hr Q24H IVPB 12/08/19 21:00 12/15/19 20:59 12/08/19 20:30 Dextrose (Dextrose 50%) 25 ml Q30M PRN IV Hypoglycemia 12/08/19 21:45 03/07/20 21:44 Dextrose (Dextrose 50%) 50 ml Q30M PRN IV Hypoglycemia 12/08/19 21:45 03/07/20 21:44 Dextrose/Sodium Chloride 1,000 ml @ 75 mls/hr [id number] IV 12/09/19 08:08 01/08/20 08:07 Docusate Sodium (Colace) 100 mg THREE TIMES A DAY ORAL 12/09/19 09:00 01/08/20 08:59 Heparin Sodium (Porcine) (Heparin 5000 units/ml) 5,000 units EVERY 12 HOURS SUBQ 12/09/19 09:00 01/23/20 08:59 Hydralazine HCl (Apresoline) 25 mg Q4H PRN ORAL Blood pressure over 160 systol 12/09/19 08:15 03/08/20 08:14 Hydromorphone HCl (Dilaudid) 0.5 mg Q6H PRN IVP Severe Pain (Pain Scale 7-10) 12/08/19 22:00 12/15/19 21:59 Insulin Aspart (NovoLOG) BEFORE MEALS AND HS SUBQ 12/09/19 06:30 03/08/20 06:29 Lorazepam (Ativan 2mg/ml 1ml) 1 mg Q6H PRN IV For Anxiety 12/08/19 21:45 12/15/19 21:44 12/09/19 00:32 Pantoprazole (Protonix) 40 mg Q12HR ORAL 12/09/19 09:00 01/08/20 08:59 Assessment/Plan Problem List: (1) UTI (urinary tract infection) Assessment & Plan: Start cefepime empiric coverage pending urine culture ICD Codes: N39.0 - Urinary tract infection, site not specified SNOMED: 36729757 Qualifiers: Qualified Codes: N30.00 - Acute cystitis without hematuria (2) Dehydration Assessment & Plan: Continue IV fluid for hydration with close monitoring of electrolytes (3) Episode of generalized weakness Assessment & Plan: Suspect due to the above continue hydration and antibiotics avoid narcotics ICD Codes: R53.1 - Weakness SNOMED: 60967297 (4) Altered mental state Assessment & Plan: Suspect due to the above with dehydration and renal failure continue supportive care with fluid and antibiotics monitor closely in telemetry ICD Codes: R41.82 - Altered mental status, unspecified SNOMED: 437585630 (5) ROBYN (acute kidney injury) Assessment & Plan: Suspect nonsteroidal anti-inflammatory medications induced with dehydration, continue hydration avoid nephrotoxic's, renal eval ICD Codes: N17.9 - Acute kidney failure, unspecified SNOMED: 22965657, [id number] (6) Suspected 2019 novel coronavirus infection Assessment & Plan: keep an enhanced droplet isolation pending PCR test ICD Codes: Z20.828 - Contact with and (suspected) exposure to other viral communicable diseases SNOMED: 397834252 Status: Reece Pang M.D. December 09, 2019 13:13
[2019-12-09] MEDS ORDERED: D5NS 1,000 ML IV SCH (14:30)
[2019-12-09 16:00] VITALS: BP 132/91
--- NOTE | 2019-12-09 16:25 | NUR ---
CASE MANAGEMENT:REVIEW 74 YR OLD FEMALE FROM HOME AND PRESENTED TO ER BY FAMILY CC: GENERALIZED WEAKNESS. INCREASED CONFUSION SI: HYPERKALEMIA. SEPSIS. ROBYN. PNA 97.0 70 19 112/56 96% ON RA BUN+53 CR+3.4 IS: 1L NS BOLUS IV ZOSYN IV CA GLUCONATE IV INSULIN IV D50W URINE AND BLOOD CX CHEST XRAY CT HEAD : TO TELEMETRY DCP: FROM HOME
--- NOTE | 2019-12-09 16:44 | History and Physical Report ---
DATE OF ADMISSION: 12/08/2019 SOURCE OF INFORMATION: The patient and EMR. HISTORY OF PRESENT ILLNESS: The patient is a 74-year-old female. The patient is a poor historian. She is not making any coherent verbal communication. Based on the ER attending documentation, the patient had been here with a complaint of 1 day feeling fatigued, dizzy, and change in mental status based on the diagnosis of the UTI. The family members and caregivers have been the source of information. Also, she has been reported to have some slurred speech for the last couple of days. Again, this is limited evaluation; however, the patient appears comfortable. REVIEW OF SYSTEMS: Unobtainable and limited as above. PAST MEDICAL AND SURGICAL HISTORY: Including but not limited to dementia, chronic encephalomalacia, psychiatric disorder, chronic pain, and hypertension. MEDICATIONS: Current hospital medications including, but not limited to cefepime. FAMILY HISTORY: Reviewed. Noncontributory. SOCIAL HISTORY: The patient lives at home. No documented history of prior illicit drug abuse, smoking, or alcohol abuse. PHYSICAL EXAMINATION: VITAL SIGNS: Blood pressure 130/80, temperature 98.2, pulse oximetry 98% on room air, respiratory rate 18, temperature 98.2. HEAD AND NECK: Atraumatic and normocephalic. CHEST: Clear to auscultation. HEART: S1, S2. Regular rate and rhythm. ABDOMEN: Soft. No organomegaly. MUSCULOSKELETAL: Positive for the spontaneous movements of upper extremity. Limited evaluation for the lower extremity as the patient is not moving leg and is not following any commands. LABORATORY AND DIAGNOSTIC DATA: Imaging dated December 07, CT scan of the head is negative for any acute pathology. Chest x-ray shows bibasilar opacities. Labs dated December 07, hemoglobin 11, WBC 10.3. Potassium 5.5, creatinine 3.4. AST of 80. TSH of 0.2. Troponin zero. Urinalysis shows positive for wbc of 60. ASSESSMENT: 1. Acute metabolic encephalopathy. 2. UTI. 3. Pulmonary infiltrations. Possibility of COVID. 4. Chronic encephalomalacia. 5. Psychiatric disorder. 6. Chronic pain. 7. GI and DVT prophylaxis. PLAN OF CARE: Pending the blood cultures, we will continue with the IV current empiric antibiotic regimen. Pulmonary, Nephrology, Cardiology, and Infectious Disease have been consulted. COMMENT: The time of this dictation does not reflect the actual time of encounter. Jania Choudhary M.D. DR: Ramiro JOB#: [id number] CC:
--- NOTE | 2019-12-09 19:30 | NUR ---
HANDOFF REPORT PM Verbal report received from Jose NAPIER. Pt refused to swallow food and meds by "pocketing food" on side of cheek in mouth. Kayexalate non-admin. MD Elena ordered to begin D51/2NS @ 75 ml/h.
--- NOTE | 2019-12-09 19:59 | Consultation ---
DATE OF CONSULTATION: 12/09/2019 CARDIOLOGY CONSULTATION CONSULTING PHYSICIAN: Art Mayberry MD. REFERRING PHYSICIAN: Jania Choudhary MD. REASON FOR CONSULTATION: Evaluation for heart murmur. HISTORY OF PRESENT ILLNESS: The patient is a very unfortunate 74-year-old female who presents to the hospital with altered level of consciousness, slurred speech, and loss of appetite. The patient also has had symptoms of fatigue in the past day or two. She was initially seen in the emergency department about a couple of days ago for a fracture of the left foot and also was diagnosed with urinary tract infection for which she was placed on antibiotic. At the time of arrival to the hospital, blood pressure was 112/56 mmHg and heart rate was 70. She was afebrile and was saturating 96% on room air. PAST MEDICAL HISTORY: Significant for hypertension, syncope, and migrainous headache. ALLERGIES: Morphine. PAST SURGICAL HISTORY: None. FAMILY HISTORY: No premature coronary artery disease in the first-degree relatives. MEDICATIONS: List of medications at home includes Tylenol No. 3 one tablet at bedtime for pain, baclofen 10 mg three times a day, Celebrex 200 mg twice a day, Keflex 500 mg q.4-6 hours, clonidine 0.1 mg daily, donepezil 5 mg p.o. daily, enalapril 20 mg q.12 hours, escitalopram 10 mg daily, [place] 10/325 q.4 hours p.r.n. pain, ibuprofen 600 mg q.8 hours p.r.n. pain, Prevacid 15 mg daily, lorazepam 1 mg at bedtime, omeprazole 20 mg p.o. daily, Lyrica 50 mg three times a day, and Bactrim DS one tablet q.12 hours. REVIEW OF SYSTEMS: HEENT: No diplopia or blurred vision. Positive for headaches. CONSTITUTIONAL: Extreme fatigue and weakness, but denies any fever, chills, or night sweats. CARDIOVASCULAR: Denies any chest pain, shortness breath, PND, orthopnea, or leg swelling. PULMONARY: No history of cough, shortness of breath, or hemoptysis. GASTROINTESTINAL: Denies any nausea or vomiting, but severe loss of appetite. No diarrhea, constipation or GI bleed. GENITOURINARY: Denies any hematuria, dysuria, incontinence. NEUROLOGY: Denies any motor dysfunction, sensory deficit, or altered speech. MUSCULOSKELETAL: Recent fracture of left ankle. SOCIAL HISTORY: Denies any tobacco, alcohol, or illicit drug use. PHYSICAL EXAMINATION: VITAL SIGNS: Blood pressure is 112/56, respirations 19, pulse of 70, temperature 97.0 degrees Fahrenheit, O2 saturation 92% on room air. GENERAL: The patient is a very unfortunate 74-year-old lady, in no apparent respiratory distress. HEENT: Atraumatic and normocephalic. Anicteric. Pupils are equal, round, and reactive to light and accommodation. Extraocular muscles intact. NECK: JVP less than 5 cm. No carotid bruit. Carotid upstrokes 2+ bilaterally. CARDIOVASCULAR: Normal S1, S2. Regular rate and rhythm. No murmurs, gallops, or rubs. PMI is at fourth intercostal space in the midclavicular line. LUNGS: Clear to auscultation bilaterally. ABDOMEN: Soft, nontender, and nondistended. No hepatosplenomegaly. Positive bowel sounds. EXTREMITIES: No evidence of edema, clubbing, or cyanosis. ASSESSMENT AND PLAN: 1. Extreme fatigue, with associated lymphopenia and elevated D-dimer, suspicious for COVID-19 infection. The patient placed in isolation. COVID-19 nasopharyngeal swab ordered, awaiting the results. In the meantime, the patient has been placed on IV antibiotics that will also cover her persistent UTI symptoms. 2. Dyspnea. Chest x-ray was significant for bilateral infiltration, which may represent early COVID-19 infection versus chronic interstitial lung disease in the past. 3. Elevated brain natriuretic peptide is also in favor of interstitial edema, which might be cardiogenic. We would like to obtain 2D echocardiography to address LV systolic and diastolic function and also to evaluate valvular abnormality given prior history of heart murmur. 4. Dyslipidemia. 5. Renal failure, which may explain the patient's fatigue and weight loss, and generalized weakness. 6. Nephrology consultation. I would like to thank Dr. Choudhary for the courtesy of this consultation. Art Mayberry M.D. DR: SHAHID/RYANNE JOB#: [id number] CC:
[2019-12-09 20:00] VITALS: BP 158/72
--- NOTE | 2019-12-09 20:20 | NUR ---
Left phone message with Ulices MILLS to notify non-admin of kayexalate from this a.m and if new orders desired.
[2019-12-09] MEDS: Cefepime HCl 1 GM in D5W 55 ML IVPB SCH (23:19)
[2019-12-10] VITALS: BP 149/98
--- NOTE | 2019-12-10 02:30 | Consultation ---
DATE OF CONSULTATION: 12/09/2019 PULMONARY CONSULTATION HISTORY OF PRESENT ILLNESS: This is a 74-year-old female with a history of dementia. She came to the hospital with anorexia and low energy as well as decreased level of consciousness. The patient was fatigued. The patient has been seen recently for left foot fracture. She has also been found to have a UTI. The patient was admitted to the hospital. PAST MEDICAL HISTORY: Notable for dementia, hypertension, migraine. ALLERGIES: Morphine. HOME MEDICATIONS: Reviewed and reconciled in chart. PHYSICAL EXAMINATION: GENERAL: Reveals a 74-year-old female. VITAL SIGNS: Blood pressure is 120/80, heart rate 54, respirations , afebrile. HEENT: Unremarkable. CHEST: Clear breath sounds bilaterally. ABDOMEN: Soft. EXTREMITIES: There is no edema. LABORATORY DATA: Lab testing shows hemoglobin 11, otherwise normal CBC. BMP is normal except for a creatinine 2.8 and a potassium 5.3, alkaline phosphatase 200. CRP 6.2. X-ray chest obtained yesterday shows bibasilar atelectasis. IMPRESSION: 1. . 2. Dementia. 3. Possible UTI. 4. Atelectasis. DISCUSSION: Admit to the hospital. The patient has renal failure, has been seen by Nephrology. He needs IV fluid hydration and broad-spectrum antibiotics. We will follow carefully. Currently saturating well on low-flow oxygen. Francis Portillo M.D. DR: Guadalupe JOB#: [id number] CC:
[2019-12-10 04:00] VITALS: BP 159/83
[2019-12-10] MEDS: NovoLOG Insulin Flexpen SUBQ SCH ×4 (06:30→21:00)
[2019-12-10] MEDS: D5 1/2NS 1,000 ML IV SCH ×2 (07:00→10:48)
--- NOTE | 2019-12-10 07:30 | NUR ---
HANDOFF REPORT AM Verbal report given to oncflorencia Garcia RN. Endorsed: Jonathan d/c at 0100P. Pt voided X1 incontinent @ 0630 moderate amt kristi colored urine. Pt displayed ever increasing orientation as shift progressed. Very inquisitive. No return call from [facility] concerning kayexalate non-admin. from 12/09/19 A.M. Pt awake in bed. No respiratory distress of discomfort of any kind verbalized or noted. Below the knee cast remains intact. No drainage. Good alignment. Denies discomfort unless turning from side to side. Relinquished care of pt at this time.
[2019-12-10 08:28] VITALS: BP 171/90
[2019-12-10] MEDS: Docusate 100mg cap ORAL SCH ×3 (09:00→18:00)
[2019-12-10] MEDS: Heparin 5000 units/ml inj SUBQ SCH ×2 (09:00→21:00)
--- NOTE | 2019-12-10 09:27 | NUR ---
RD ASSESSMENT & RECOMMENDATIONS SEE CARE ACTIVITY FOR COMPLETE ASSESSMENT DAILY ESTIMATED NEEDS: Needs based on pulmonary 65kg abw 25-30 kcals/kg [id number] total kcals 1-1.5 g protein/kg 65-98 g total protein 25-30 mL/kg 0909-8558 total fluid mLs NUTRITION DIAGNOSIS: Altered nutrition related lab values r/t clinical status as evidenced by elev K(5.5), elev phso(6.1), elev mg(2.6), elev BUN/creat(54/2.8). [facility]ET: [facility] soft easy chew PO DIET RECOMMENDATIONS--->>> LOW NA DIET/ liberalized d/t poor po (texture per [employer]) ENTERAL NUTRITION RECOMMENDATIONS: If part of POC, Nepro @38ml/hr x24 hrs to provide 912ml, 1642 kcal, 74g pro, 663ml free H2O - If part of POC w/ continued poor po, rec to obtain GI access, initiate NEPRO @low rate, 18ml/hr for 6 hrs - Advance as tolerated 10ml/hr q4-6 hrs to goal - Flush per , HOB over 30 degrees ----- ADDITIONAL RECOMMENDATIONS: 1) Monitor PO intake and need for renal diet restriction -> Add NEPRO TID w/ meals -> pt is full code, rec temporary nonoral feeds w/ continued poor po 2) Continue POC w/ poor po intake, monitor for hypoglycemia -> currently on D5 3) Updated calibrated bed scale wts
[2019-12-10 10:08] LABS: BASOPHILS % (AUTO) 0.6 % (0.0-2.0); EOSINOPHILS % (AUTO) 0.5 % (0.0-3.0); HEMATOCRIT 31.8 % (37.0-47.0); HEMOGLOBIN 10.3 G/DL (12.0-16.0); LYMPHOCYTES % (AUTO) 12.8 % (20.0-45.0); MEAN CORPUSCULAR VOLUME 89 FL (80-99); MONOCYTES % (AUTO) 6.7 % (1.0-10.0); NEUTROPHILS % (AUTO) 79.4 % (45.0-75.0); PLATELET COUNT 259 K/UL (150-450); RED BLOOD COUNT 3.56 M/UL (4.20-5.40); RED CELL DISTRIBUTION WIDTH 13.7 % (11.6-14.8); WHITE BLOOD COUNT 10.1 K/UL (4.8-10.8)
[2019-12-10 10:44] LABS: PHOSPHORUS 3.3 MG/DL (2.5-4.9)
[2019-12-10 10:46] LABS: ANION GAP 7 mmol/L (5-15); BLOOD UREA NITROGEN 32 mg/dL (7-18); CALCIUM 8.9 MG/DL (8.5-10.1); CARBON DIOXIDE 26 MMOL/L (21-32); CHLORIDE 111 MMOL/L (98-107); CREATININE 1.3 MG/DL (0.55-1.30); POTASSIUM 4.4 MMOL/L (3.5-5.1); SODIUM 144 MMOL/L (136-145)
--- NOTE | 2019-12-10 10:53 | Nephrology Progress Note ---
Assessment/Plan Problem List: (1) ROBYN (acute kidney injury) (2) Dehydration (3) UTI (urinary tract infection) (4) Sepsis (5) Hyperkalemia Assessment Renal failure most likely acute on chronic, patient medication list included Celebrex and ibuprofen Sepsis, pneumonia, suspected COVID-19 infection Hyperkalemia on presentation to the ER Anemia UTI Toxic metabolic encephalopathy with history of dementia Plan slow hydration Hold nonsteroidal anti-inflammatories Avoid nephrotoxic's Monitor renal parameters and urine output Castillo catheter Kidney ultrasound Anemia work-up Per orders Subjective ROS Limited/Unobtainable: No Constitutional: Reports: malaise Objective Objective Last 24 Hour Vital Signs Date Time Temp Pulse Resp B/P (MAP) Pulse Ox O2 Delivery O2 Flow Rate FiO2 12/10/19 08:31 Nasal Cannula 2.0 12/10/19 08:28 97.5 90 18 171/90 (117) 100 12/10/19 04:00 97.7 82 18 159/83 (108) 99 12/10/19 04:00 78 12/10/19 00:00 84 12/10/19 00:00 97.7 86 18 149/98 (115) 99 12/09/19 21:00 Nasal Cannula 2.0 12/09/19 20:00 74 12/09/19 20:00 97.5 76 19 158/72 (100) 99 12/09/19 16:00 97.5 74 20 132/91 (105) 97 12/09/19 12:00 98.0 75 22 135/91 (106) 98 Intake and Output 12/09/19 12/10/19 19:00 07:00 Output Total 600 ml Balance -600 ml Output Urine Total 600 ml # Voids 1 Laboratory Tests 12/10/19 09:45: White Blood Count 10.1, Red Blood Count 3.56L, Hemoglobin 10.3L, Hematocrit 31.8L, Mean Corpuscular Volume 89, Mean Corpuscular Hemoglobin 28.9, Mean Corpuscular Hemoglobin Concent 32.4, Red Cell Distribution Width 13.7, Platelet Count 259, Mean Platelet Volume 7.2, Neutrophils (%) (Auto) 79.4H, Lymphocytes ( %) (Auto) 12.8L, Monocytes (%) (Auto) 6.7, Eosinophils (%) (Auto) 0.5, Basophils (%) (Auto) 0.6, Sodium Level 144, Potassium Level 4.4, Chloride Level 111H, Carbon Dioxide Level 26, Anion Gap 7, Blood Urea Nitrogen 32H, Creatinine 1.3#, Estimat Glomerular Filtration Rate 39.8, Glucose Level 135H, Calcium Level 8.9, Phosphorus Level 3.3, Magnesium Level 2.2, Total Bilirubin [Pending] , Aspartate Amino Transf (AST/SGOT) [Pending], Alanine Aminotransferase (ALT/ SGPT) [Pending], Alkaline Phosphatase [Pending], Total Protein [Pending], Albumin [Pending], Globulin [Pending] Height (Feet): 5 Height (Inches): 5.00 Weight (Pounds): 200 General Appearance: no apparent distress Cardiovascular: tachycardia Respiratory/Chest: decreased breath sounds Abdomen: distended, other - Obese Brendan Elena MD December 10, 2019 10:53
[2019-12-10 10:57] LABS: ALANINE AMINOTRANSFERASE 43 U/L (12-78); ALBUMIN 2.7 G/DL (3.4-5.0); ALBUMIN/GLOBULIN RATIO 0.6 (1.0-2.7); ALKALINE PHOSPHATASE 169 U/L (46-116); ASPARTATE AMINO TRANSFERASE 25 U/L (15-37); BILIRUBIN,TOTAL 0.3 MG/DL (0.2-1.0)
--- NOTE | 2019-12-10 11:53 | Pulmonology Progress Note ---
Subjective ROS Limited/Unobtainable: No Interval Events: None new reported Constitutional: Reports: no symptoms HEENT: Repors: no symptoms Respiratory: Reports: no symptoms Cardiovascular: Reports: no symptoms Allergies: Coded Allergies: MORPHINE (Verified Allergy, Intermediate, HALLUCINATIONS, 03/03/13) Objective Last 24 Hour Vital Signs Date Time Temp Pulse Resp B/P (MAP) Pulse Ox O2 Delivery O2 Flow Rate FiO2 12/10/19 08:31 Nasal Cannula 2.0 12/10/19 08:28 97.5 90 18 171/90 (117) 100 12/10/19 04:00 97.7 82 18 159/83 (108) 99 12/10/19 04:00 78 12/10/19 00:00 84 12/10/19 00:00 97.7 86 18 149/98 (115) 99 12/09/19 21:00 Nasal Cannula 2.0 12/09/19 20:00 74 12/09/19 20:00 97.5 76 19 158/72 (100) 99 12/09/19 16:00 97.5 74 20 132/91 (105) 97 12/09/19 12:00 98.0 75 22 135/91 (106) 98 Intake and Output 12/09/19 12/10/19 19:00 07:00 Output Total 600 ml Balance -600 ml Output Urine Total 600 ml # Voids 1 General Appearance: WD/WN, no acute distress, other - Altered and unresponsive HEENT: normocephalic, atraumatic, anicteric, mucous membranes moist Abdomen: normal bowel sounds, soft, non tender, no organomegaly, non distended , no mass, no scars Genitourinary: normal external genitalia Extremities: no cyanosis, no clubbing Skin: no rash, no lesions, no ulcers Neurologic/Psychiatric: unresponsiveness Lymphatic: no neck adenopathy, no groin adenopathy Musculoskeletal: normal muscle bulk Microbiology Date/Time Source Procedure Growth Status 12/08/19 15:25 Blood Blood Culture - Preliminary NO GROWTH AFTER 24 HOURS Resulted 12/08/19 15:10 Blood Blood Culture - Preliminary NO GROWTH AFTER 24 HOURS Resulted 12/08/19 15:25 Urine,Clean Catch Urine Culture - Preliminary NO GROWTH AFTER 24 HOURS Resulted 12/09/19 02:40 Rectum Received Laboratory Tests 12/10/19 09:45: White Blood Count 10.1, Red Blood Count 3.56L, Hemoglobin 10.3L, Hematocrit 31.8L, Mean Corpuscular Volume 89, Mean Corpuscular Hemoglobin 28.9, Mean Corpuscular Hemoglobin Concent 32.4, Red Cell Distribution Width 13.7, Platelet Count 259, Mean Platelet Volume 7.2, Neutrophils (%) (Auto) 79.4H, Lymphocytes ( %) (Auto) 12.8L, Monocytes (%) (Auto) 6.7, Eosinophils (%) (Auto) 0.5, Basophils (%) (Auto) 0.6, Sodium Level 144, Potassium Level 4.4, Chloride Level 111H, Carbon Dioxide Level 26, Anion Gap 7, Blood Urea Nitrogen 32H, Creatinine 1.3#, Estimat Glomerular Filtration Rate 39.8, Glucose Level 135H, Calcium Level 8.9, Phosphorus Level 3.3, Magnesium Level 2.2, Total Bilirubin 0.3, Aspartate Amino Transf (AST/SGOT) 25, Alanine Aminotransferase (ALT/SGPT) 43, Alkaline Phosphatase 169H, Total Protein 6.9, Albumin 2.7L, Globulin 4.2, Albumin/Globulin Ratio 0.6L Current Medications Medications (Trade) Dose Ordered Sig/Myron Route PRN Reason Start Time Stop Time Status Last Admin Dose Admin Acetaminophen (Tylenol) 650 mg Q6H PRN ORAL Mild Pain (Pain Scale 1-3) 12/08/19 21:45 01/07/20 21:44 Acetaminophen/ Hydrocodone Bitart ([place] 5/325) 1 tab Q6H PRN ORAL Moderate Pain (Pain Scale 4-6) 12/08/19 22:00 12/15/19 21:59 Cefepime HCl 1 gm/ Dextrose 55 ml @ 110 mls/hr Q24H IVPB 12/08/19 21:00 12/15/19 20:59 12/09/19 23:19 Dextrose (Dextrose 50%) 25 ml Q30M PRN IV Hypoglycemia 12/08/19 21:45 03/07/20 21:44 Dextrose (Dextrose 50%) 50 ml Q30M PRN IV Hypoglycemia 12/08/19 21:45 03/07/20 21:44 Dextrose/Sodium Chloride 1,000 ml @ 75 mls/hr [id number] IV 12/09/19 08:08 01/08/20 08:07 12/10/19 07:00 Docusate Sodium (Colace) 100 mg THREE TIMES A DAY ORAL 12/09/19 09:00 01/08/20 08:59 Heparin Sodium (Porcine) (Heparin 5000 units/ml) 5,000 units EVERY 12 HOURS SUBQ 12/09/19 09:00 01/23/20 08:59 12/10/19 09:00 Hydralazine HCl (Apresoline) 25 mg Q4H PRN ORAL Blood pressure over 160 systol 12/09/19 08:15 03/08/20 08:14 Hydromorphone HCl (Dilaudid) 0.5 mg Q6H PRN IVP Severe Pain (Pain Scale 7-10) 12/08/19 22:00 12/15/19 21:59 Insulin Aspart (NovoLOG) BEFORE MEALS AND HS SUBQ 12/09/19 06:30 03/08/20 06:29 Lorazepam (Ativan 2mg/ml 1ml) 1 mg Q6H PRN IV For Anxiety 12/08/19 21:45 12/15/19 21:44 12/09/19 00:32 Pantoprazole (Protonix) 40 mg Q12HR ORAL 12/09/19 09:00 01/08/20 08:59 12/09/19 23:19 Assessment/Plan Assessment/Plan IMPRESSION: 1. Failure to thrive 2. Dementia. 3. Possible UTI. 4. Atelectasis. DISCUSSION: Admit to the hospital. The patient has renal failure, has been seen by Nephrology. Continue IV fluid hydration and broad-spectrum antibiotics. I will follow carefully. Currently saturating well on low-flow oxygen. Taina Ledesma Omar Syed MD December 10, 2019 11:53
[2019-12-10 12:00] VITALS: BP 160/82
--- NOTE | 2019-12-10 12:08 | General Progress Note ---
Assessment/Plan Status: stable Assessment/Plan: S: limted verbal communication O: agitated. poor historian. seems comfortable. PHYSICAL EXAMINATION:HEAD AND NECK: Atraumatic and normocephalic. CHEST: Clear to auscultation.HEART: S1, S2. Regular rate and rhythm. ABDOMEN: Soft. No organomegaly.MUSCULOSKELETAL: Positive for the spontaneous movements of upper extremity. Limited evaluation for the lower extremity as the patient is not moving leg and is not following any commands. LABORATORY AND DIAGNOSTIC DATA: dated December 09 reviwed ASSESSMENT: 1. Acute metabolic encephalopathy. 2. UTI. 3. Pulmonary infiltrations. Possibility of COVID. 4. Chronic encephalomalacia. 5. Psychiatric disorder. 6. Chronic pain. 7. GI and DVT prophylaxis. PLAN OF CARE: start PO bp medication current empirical abx I spoke to her daughter on December 08, at appx 5 PM. I discussed overal medical cnd with her Subjective Allergies: Coded Allergies: MORPHINE (Verified Allergy, Intermediate, HALLUCINATIONS, 03/03/13) Objective Last 24 Hour Vital Signs Date Time Temp Pulse Resp B/P (MAP) Pulse Ox O2 Delivery O2 Flow Rate FiO2 12/10/19 08:31 Nasal Cannula 2.0 12/10/19 08:28 97.5 90 18 171/90 (117) 100 12/10/19 04:00 97.7 82 18 159/83 (108) 99 12/10/19 04:00 78 12/10/19 00:00 84 12/10/19 00:00 97.7 86 18 149/98 (115) 99 12/09/19 21:00 Nasal Cannula 2.0 12/09/19 20:00 74 12/09/19 20:00 97.5 76 19 158/72 (100) 99 12/09/19 16:00 97.5 74 20 132/91 (105) 97 Intake and Output 12/09/19 12/10/19 19:00 07:00 Output Total 600 ml Balance -600 ml Output Urine Total 600 ml # Voids 1 Laboratory Tests 12/10/19 09:45: White Blood Count 10.1, Red Blood Count 3.56L, Hemoglobin 10.3L, Hematocrit 31.8L, Mean Corpuscular Volume 89, Mean Corpuscular Hemoglobin 28.9, Mean Corpuscular Hemoglobin Concent 32.4, Red Cell Distribution Width 13.7, Platelet Count 259, Mean Platelet Volume 7.2, Neutrophils (%) (Auto) 79.4H, Lymphocytes ( %) (Auto) 12.8L, Monocytes (%) (Auto) 6.7, Eosinophils (%) (Auto) 0.5, Basophils (%) (Auto) 0.6, Sodium Level 144, Potassium Level 4.4, Chloride Level 111H, Carbon Dioxide Level 26, Anion Gap 7, Blood Urea Nitrogen 32H, Creatinine 1.3#, Estimat Glomerular Filtration Rate 39.8, Glucose Level 135H, Calcium Level 8.9, Phosphorus Level 3.3, Magnesium Level 2.2, Total Bilirubin 0.3, Aspartate Amino Transf (AST/SGOT) 25, Alanine Aminotransferase (ALT/SGPT) 43, Alkaline Phosphatase 169H, Total Protein 6.9, Albumin 2.7L, Globulin 4.2, Albumin/Globulin Ratio 0.6L Height (Feet): 5 Height (Inches): 5.00 Weight (Pounds): 200 Jania Choudhary MD December 10, 2019 12:08
[2019-12-10] MEDS: HydrALAZINE 10mg Tab ORAL SCH ×2 (12:15→17:35)
--- NOTE | 2019-12-10 12:41 | Infectious Diseases Prog Note ---
Assessment/Plan Problems: (1) Pneumonia Assessment & Plan: suspect due to altered mental status , and possible aspiration , already on cefepime empiric coverage , repeat CXR (2) UTI (urinary tract infection) Assessment & Plan: with negative culture , suspect sterile pyuria , no need to treat , continue cefepime empiric coverage for possible pneumonia , monitor blood culture (3) Dehydration Assessment & Plan: Continue IV fluid for hydration with close monitoring of electrolytes (4) Episode of generalized weakness Assessment & Plan: Suspect due to the above continue hydration and antibiotics avoid narcotics (5) Altered mental state Assessment & Plan: Suspect due to the above with dehydration and renal failure continue supportive care with fluid and antibiotics monitor closely in telemetry (6) ROBYN (acute kidney injury) Assessment & Plan: Suspect nonsteroidal anti-inflammatory medications induced with dehydration, continue hydration avoid nephrotoxic's, renal eval (7) Suspected 2019 novel coronavirus infection Assessment & Plan: keep an enhanced droplet isolation pending PCR test Subjective ROS Limited/Unobtainable: Yes Allergies: Coded Allergies: MORPHINE (Verified Allergy, Intermediate, HALLUCINATIONS, 03/03/13) Subjective she remained altered unresponsive laying in bed still satting well on 2 L nasal cannula, no fever or chills no cough or shortness of breath and no diarrhea Objective Vital Signs Last 24 Hour Vital Signs Date Time Temp Pulse Resp B/P (MAP) Pulse Ox O2 Delivery O2 Flow Rate FiO2 12/10/19 08:31 Nasal Cannula 2.0 12/10/19 08:28 97.5 90 18 171/90 (117) 100 12/10/19 04:00 97.7 82 18 159/83 (108) 99 12/10/19 04:00 78 12/10/19 00:00 84 12/10/19 00:00 97.7 86 18 149/98 (115) 99 12/09/19 21:00 Nasal Cannula 2.0 12/09/19 20:00 74 12/09/19 20:00 97.5 76 19 158/72 (100) 99 12/09/19 16:00 97.5 74 20 132/91 (105) 97 Height (Feet): 5 Height (Inches): 5.00 Weight (Pounds): 200 General Appearance: WD/WN, no acute distress, other - unresponsive HEENT: normocephalic, atraumatic, anicteric, mucous membranes moist, PERRL Respiratory/Chest: chest wall non-tender, lungs clear, normal breath sounds, no respiratory distress, no accessory muscle use Cardiovascular: normal peripheral pulses, normal rate, regular rhythm, no gallop/murmur, no JVD Abdomen: normal bowel sounds, soft, non tender, no organomegaly, non distended , no mass, no scars Genitourinary: normal external genitalia Extremities: no cyanosis, no clubbing Skin: no rash, no lesions Neurologic/Psychiatric: unresponsiveness Lymphatic: no neck adenopathy, no groin adenopathy Musculoskeletal: normal muscle bulk, no effusion Microbiology Date/Time Source Procedure Growth Status 12/08/19 15:25 Blood Blood Culture - Preliminary NO GROWTH AFTER 24 HOURS Resulted 12/08/19 15:10 Blood Blood Culture - Preliminary NO GROWTH AFTER 24 HOURS Resulted 12/08/19 15:25 Urine,Clean Catch Urine Culture - Preliminary NO GROWTH AFTER 24 HOURS Resulted 12/09/19 02:40 Rectum Received Laboratory Tests Test 12/10/19 09:45 White Blood Count 10.1 K/UL (4.8-10.8) Red Blood Count 3.56 M/UL (4.20-5.40) L Hemoglobin 10.3 G/DL (12.0-16.0) L Hematocrit 31.8 % (37.0-47.0) L Mean Corpuscular Volume 89 FL (80-99) Mean Corpuscular Hemoglobin 28.9 PG (27.0-31.0) Mean Corpuscular Hemoglobin Concent 32.4 G/DL (32.0-36.0) Red Cell Distribution Width 13.7 % (11.6-14.8) Platelet Count 259 K/UL (150-450) Mean Platelet Volume 7.2 FL (6.5-10.1) Neutrophils (%) (Auto) 79.4 % (45.0-75.0) H Lymphocytes (%) (Auto) 12.8 % (20.0-45.0) L Monocytes (%) (Auto) 6.7 % (1.0-10.0) Eosinophils (%) (Auto) 0.5 % (0.0-3.0) Basophils (%) (Auto) 0.6 % (0.0-2.0) Sodium Level 144 MMOL/L (136-145) Potassium Level 4.4 MMOL/L (3.5-5.1) Chloride Level 111 MMOL/L (98-107) H Carbon Dioxide Level 26 MMOL/L (21-32) Anion Gap 7 mmol/L (5-15) Blood Urea Nitrogen 32 mg/dL (7-18) H Creatinine 1.3 MG/DL (0.55-1.30) # Estimat Glomerular Filtration Rate 39.8 mL/min (>60) Glucose Level 135 MG/DL (74-106) H Calcium Level 8.9 MG/DL (8.5-10.1) Phosphorus Level 3.3 MG/DL (2.5-4.9) Magnesium Level 2.2 MG/DL (1.8-2.4) Total Bilirubin 0.3 MG/DL (0.2-1.0) Aspartate Amino Transf (AST/SGOT) 25 U/L (15-37) Alanine Aminotransferase (ALT/SGPT) 43 U/L (12-78) Alkaline Phosphatase 169 U/L (46-116) H Total Protein 6.9 G/DL (6.4-8.2) Albumin 2.7 G/DL (3.4-5.0) L Globulin 4.2 g/dL Albumin/Globulin Ratio 0.6 (1.0-2.7) L Current Medications Medications (Trade) Dose Ordered Sig/Myron Route PRN Reason Start Time Stop Time Status Last Admin Dose Admin Acetaminophen (Tylenol) 650 mg Q6H PRN ORAL Mild Pain (Pain Scale 1-3) 12/08/19 21:45 01/07/20 21:44 Acetaminophen/ Hydrocodone Bitart ([place] 5/325) 1 tab Q6H PRN ORAL Moderate Pain (Pain Scale 4-6) 12/08/19 22:00 12/15/19 21:59 Cefepime HCl 1 gm/ Dextrose 55 ml @ 110 mls/hr Q24H IVPB 12/08/19 21:00 12/15/19 20:59 12/09/19 23:19 Dextrose (Dextrose 50%) 25 ml Q30M PRN IV Hypoglycemia 12/08/19 21:45 03/07/20 21:44 Dextrose (Dextrose 50%) 50 ml Q30M PRN IV Hypoglycemia 12/08/19 21:45 03/07/20 21:44 Dextrose/Sodium Chloride 1,000 ml @ 75 mls/hr [id number] IV 12/09/19 08:08 01/08/20 08:07 12/10/19 07:00 Docusate Sodium (Colace) 100 mg THREE TIMES A DAY ORAL 12/09/19 09:00 01/08/20 08:59 Heparin Sodium (Porcine) (Heparin 5000 units/ml) 5,000 units EVERY 12 HOURS SUBQ 12/09/19 09:00 01/23/20 08:59 12/10/19 09:00 Hydralazine HCl (Apresoline) 10 mg Q6HR ORAL 12/10/19 12:15 03/09/20 12:14 Hydralazine HCl (Apresoline) 25 mg Q4H PRN ORAL Blood pressure over 160 systol 12/09/19 08:15 03/08/20 08:14 Hydromorphone HCl (Dilaudid) 0.5 mg Q6H PRN IVP Severe Pain (Pain Scale 7-10) 12/08/19 22:00 12/15/19 21:59 Insulin Aspart (NovoLOG) BEFORE MEALS AND HS SUBQ 12/09/19 06:30 03/08/20 06:29 Lorazepam (Ativan 2mg/ml 1ml) 1 mg Q6H PRN IV For Anxiety 12/08/19 21:45 12/15/19 21:44 12/09/19 00:32 Pantoprazole (Protonix) 40 mg Q12HR ORAL 12/09/19 09:00 01/08/20 08:59 12/09/19 23:19 Reece Rocha M.D. December 10, 2019 12:41
--- NOTE | 2019-12-10 14:41 | NUR ---
RADIOLOGY DEPT., CHEST X-RAY DONE.-P.DYE
--- NOTE | 2019-12-10 15:31 | Diagnostic Imaging Report ---
Indication: Shortness of breath Technique: One view of the chest Comparison: 12/08/2019 Findings: Better inspiration currently. Patient is rotated to the right. Prominence of the upper mediastinum again demonstrated. The lungs demonstrate mild interstitial prominence which appears similar to the previous study. The heart is borderline enlarged. Impression: Better inspiration currently, with decreased crowding of bronchovascular markings Persistent mild interstitial prominence, similar to the prior exam, may indicate infiltrates, edema, or chronic changes. Stable upper mediastinal prominence, likely related to body habitus and vascular tortuosity
[2019-12-10 16:01] VITALS: BP 162/84
--- NOTE | 2019-12-10 17:01 | NUR ---
NURSE MIDWIFE Swallow Eval PT REFERRED FOR BEDSIDE SWALLOW EVALUATION BY: Dr. Choudhary DYSPHAGIA RISK FACTORS FOR THIS 74 YO FEMALE. ACUTE ISSUES: UTI, Dehydration, AMS, ROBYN, episode of generalized weakness, suspect 2019 novel coronavirus infection, Sepsis PNA (Possible aspiration), Anemia, hyperkalemia, Toxic metabolic encephalopathy, Renal failure most likely acute on chronic. COMORBIDITIES: H/o DEMENTIA, GERD, Psychiatric d/o, Chronic Pain, Chronic encephalomalacia, GI and DVT prophylaxis. RELEVANT MEDICATIONS: Protonix (GERD), Ativan (Agitation); Dilaudid (Pain); [place] (Pain); PRIOR FUNCTION: Prior to evaluation, Pt was on a Chewable Solids w/ Thin Liquids diet, however, due to Pt's poor alertness and AMS has not been receiving PO due to concern for aspiration until NURSE MIDWIFE eval completed. RESPIRATORY STATUS: HR: 84; RR: 18; SP02 100%, nasal cannula 2 L/min SPEECH/LANGUAGE: Pt is lethargic requiring tactile cues to sustain alertness, AMS, able to functionally express wants and needs w/o difficulties. RN REPORTS: Pt w/ AMS, slowly improving but not at baseline yet. Pt has nasal cannula Patient is alert for PO trials. Observed w/ VERY poor oral hygiene w/ solid-like pieces of oral secretions dried on lips with blade of tongue coated w/ thick and dry oral secretions. ST attempted to remove however, REQUIRES NURSING TO GIVE PT ORAL HYGIENE PRIOR TO ALL PO. Pt is edentulous, lingual and labial ROM and coordination is intact, Pt is able to follow directions. Poor oral secretion management. INITIAL IMPRESSIONS: Mild oral and probably mild to moderate pharyngeal dysphagia compounded by lethargy (Meds: Ativan; Dilaudid; [place]) cognitive behavior deficits (talking during PO trials, AMS, lethargy), and generalized weakness with delayed oropharyngeal transit times, fair laryngeal elevation, no significant overt s/s of aspiration. -PATIENT IS AT A RISK FOR ASPIRATION DUE TO AMS AND COGNITIVE BEHAVIORAL DEFICITS (talking w/ food in mouth) -HIGH RISK FOR POOR INTAKE DUE TO REDUCED ALERTNESS (GIVEN ATIVAN) AND Hx OF DEMENTIA Given Thin Liquids and Puree solids w/ no significant s/s of aspiration, Pt observed falling asleep w/ PO trials and required constant verbal cues to sustain alertness. RECS: 1.Downgrade to Puree solids w/ Thin liquids and 1:to:1 careful handfeeding while implementing posted aspiration precautions. (Per RD Low ML and Nepro TID) 2.Nursing please provide Pt Oral care TIB after meals w/ suction. 3.ASPIRATION/REFLUX PRECAUTIONS W/ 1:TO:[address] SERVICES TO F/U 3x a week x 1 week 5.MBSS IP OR OP (IF D/C) ST educated RN on results and recommendations, and posted aspiration precautions. Please see complete NURSE MIDWIFE bedside swallow eval report in care activity section.
[2019-12-10 20:00] VITALS: BP 162/85
[2019-12-10] MEDS: Cefepime HCl 1 GM in D5W 55 ML IVPB SCH (22:22)
[2019-12-10] MEDS: HydrALAZINE 25mg tab ORAL PRN (22:23)
--- NOTE | 2019-12-10 23:29 | Cardiology Progress Note ---
Assessment/Plan Assessment/Plan 1. Extreme fatigue and SOB, with bilateral infiltration ox CXR with associated lymphopenia and elevated D-dimer, suspicious for COVID-19 infection. Continue ID follow up. 2. Elevated brain natriuretic peptide, 2D echocardiography shows normal LV systolic function with LVEF at 60% and mild pulmonary HTN. 3. Dyslipidemia. 4. Acute kidney injury, resolving. Subjective Subjective Sinus rhythm at rate of 77. Objective Last 24 Hour Vital Signs Date Time Temp Pulse Resp B/P (MAP) Pulse Ox O2 Delivery O2 Flow Rate FiO2 12/10/19 22:23 162/85 12/10/19 20:00 97.5 77 21 162/85 (110) 92 12/10/19 17:35 162/84 12/10/19 16:01 98.1 84 18 162/84 (110) 100 12/10/19 12:15 171/90 12/10/19 12:00 97.7 79 18 160/82 (108) 100 12/10/19 08:31 Nasal Cannula 2.0 12/10/19 08:28 97.5 90 18 171/90 (117) 100 12/10/19 04:00 97.7 82 18 159/83 (108) 99 12/10/19 04:00 78 12/10/19 00:00 84 12/10/19 00:00 97.7 86 18 149/98 (115) 99 Intake and Output 12/09/19 12/10/19 19:00 07:00 Output Total 600 ml Balance -600 ml Output Urine Total 600 ml # Voids 1 2D Echo: EF 60%, Grade I LVDD, RVSP 39 mmHg Laboratory Tests Test 12/10/19 09:45 White Blood Count 10.1 K/UL (4.8-10.8) Red Blood Count 3.56 M/UL (4.20-5.40) L Hemoglobin 10.3 G/DL (12.0-16.0) L Hematocrit 31.8 % (37.0-47.0) L Mean Corpuscular Volume 89 FL (80-99) Mean Corpuscular Hemoglobin 28.9 PG (27.0-31.0) Mean Corpuscular Hemoglobin Concent 32.4 G/DL (32.0-36.0) Red Cell Distribution Width 13.7 % (11.6-14.8) Platelet Count 259 K/UL (150-450) Mean Platelet Volume 7.2 FL (6.5-10.1) Neutrophils (%) (Auto) 79.4 % (45.0-75.0) H Lymphocytes (%) (Auto) 12.8 % (20.0-45.0) L Monocytes (%) (Auto) 6.7 % (1.0-10.0) Eosinophils (%) (Auto) 0.5 % (0.0-3.0) Basophils (%) (Auto) 0.6 % (0.0-2.0) Sodium Level 144 MMOL/L (136-145) Potassium Level 4.4 MMOL/L (3.5-5.1) Chloride Level 111 MMOL/L (98-107) H Carbon Dioxide Level 26 MMOL/L (21-32) Anion Gap 7 mmol/L (5-15) Blood Urea Nitrogen 32 mg/dL (7-18) H Creatinine 1.3 MG/DL (0.55-1.30) # Estimat Glomerular Filtration Rate 39.8 mL/min (>60) Glucose Level 135 MG/DL (74-106) H Calcium Level 8.9 MG/DL (8.5-10.1) Phosphorus Level 3.3 MG/DL (2.5-4.9) Magnesium Level 2.2 MG/DL (1.8-2.4) Total Bilirubin 0.3 MG/DL (0.2-1.0) Aspartate Amino Transf (AST/SGOT) 25 U/L (15-37) Alanine Aminotransferase (ALT/SGPT) 43 U/L (12-78) Alkaline Phosphatase 169 U/L (46-116) H Total Protein 6.9 G/DL (6.4-8.2) Albumin 2.7 G/DL (3.4-5.0) L Globulin 4.2 g/dL Albumin/Globulin Ratio 0.6 (1.0-2.7) L Microbiology Date/Time Source Procedure Growth Status 12/08/19 15:25 Blood Blood Culture - Preliminary NO GROWTH AFTER 24 HOURS Resulted 12/08/19 15:10 Blood Blood Culture - Preliminary NO GROWTH AFTER 24 HOURS Resulted 12/08/19 15:25 Urine,Clean Catch Urine Culture - Preliminary NO GROWTH AFTER 24 HOURS Resulted 12/09/19 02:40 Rectum Received Objective HEENT: Atraumatic and normocephalic. Anicteric. Pupils are equal, round, and reactive to light and accommodation. Extraocular muscles intact. NECK: JVP less than 5 cm. No carotid bruit. Carotid upstrokes 2+ bilaterally. CARDIOVASCULAR: Normal S1, S2. Regular rate and rhythm. No murmurs, gallops, or rubs. PMI is at fourth intercostal space in the midclavicular line. LUNGS: Clear to auscultation bilaterally. ABDOMEN: Soft, nontender, and nondistended. No hepatosplenomegaly. Positive bowel sounds. EXTREMITIES: No evidence of edema, clubbing, or cyanosis. Art Mayberry MD December 10, 2019 23:29
[2019-12-11] MEDS: D5 1/2NS 1,000 ML IV SCH ×2 (00:08→14:17)
[2019-12-11] MEDS: HydrALAZINE 10mg Tab ORAL SCH ×2 (06:00)
[2019-12-11] MEDS: NovoLOG Insulin Flexpen SUBQ SCH ×4 (06:52→21:00)
--- NOTE | 2019-12-11 07:30 | NUR ---
HANDOFF REPORT TO DAY RN Verbal report to Marija NAPIER. Endorsed: A&O x2 Name and place with increased appropriate interaction and orientation noted and relayed to daughter Kathleen who calls for an update usually each shift. Resting in bed and incorporates what she hears on TV as happiening in her life. When re-oriented pt readily gets it and understands at the time. Pure wick with 200 mls of kristi colored clear urine, minimal leakage.BS 103 and 333 with coverage per s/s as dictated. Afebrile. Meds crushed and taken well in jello while very wakeful and aligned. No problems evident in swallowing. D51/2 NS continues at 75 ml/h. Blood pressure systolic in 160's. Prn hydralazine given X1 and scheduled given X2. Continue to monitor and assist as needed.
--- NOTE | 2019-12-11 07:50 | NUR ---
NURSE NOTES: Nurse report given by KARTHIKEYAN Lopez. Patient's sleeping in bed soundly, no s/s of pain, no s/s of distress or SOB, breathing regular and unlabored. On 2L nasal cannula. Bed low and locked, call light within reach, side rails x 3, bed alarm is armed. IV is running fluid, no s/s infiltration or tenderness. Will continue to monitor.
[2019-12-11 08:00] VITALS: BP 168/90
[2019-12-11] MEDS: Heparin 5000 units/ml inj SUBQ SCH ×2 (09:16→22:41)
[2019-12-11] MEDS: Docusate 100mg cap ORAL SCH ×3 (09:16→18:00)
--- NOTE | 2019-12-11 10:35 | Pulmonology Progress Note ---
Subjective ROS Limited/Unobtainable: Yes Interval Events: None new reported Constitutional: Reports: no symptoms HEENT: Repors: no symptoms Respiratory: Reports: no symptoms Cardiovascular: Reports: no symptoms Allergies: Coded Allergies: MORPHINE (Verified Allergy, Intermediate, HALLUCINATIONS, 03/03/13) Objective Last 24 Hour Vital Signs Date Time Temp Pulse Resp B/P (MAP) Pulse Ox O2 Delivery O2 Flow Rate FiO2 12/11/19 09:32 83 12/11/19 08:00 93 12/11/19 08:00 99.3 87 18 168/90 (116) 97 12/11/19 06:00 169/82 12/11/19 00:17 92 12/11/19 00:00 172/85 12/10/19 22:23 162/85 12/10/19 21:00 Nasal Cannula 2.0 12/10/19 21:00 Nasal Cannula 2.0 12/10/19 20:00 97.5 77 21 162/85 (110) 92 12/10/19 20:00 84 12/10/19 17:35 162/84 12/10/19 16:01 98.1 84 18 162/84 (110) 100 12/10/19 12:15 171/90 12/10/19 12:00 97.7 79 18 160/82 (108) 100 General Appearance: WD/WN, no acute distress, other - unresponsive HEENT: normocephalic, atraumatic, anicteric, mucous membranes moist, PERRL Abdomen: normal bowel sounds, soft, non tender, no organomegaly, non distended , no mass, no scars Genitourinary: normal external genitalia Extremities: no cyanosis, no clubbing Skin: no rash, no lesions Neurologic/Psychiatric: unresponsiveness Lymphatic: no neck adenopathy, no groin adenopathy Musculoskeletal: normal muscle bulk, no effusion Microbiology Date/Time Source Procedure Growth Status 12/08/19 15:25 Blood Blood Culture - Preliminary NO GROWTH AFTER 48 HOURS Resulted 12/08/19 15:10 Blood Blood Culture - Preliminary NO GROWTH AFTER 48 HOURS Resulted 12/09/19 02:40 Nasal Nares Left MRSA Culture - Final NO METHICILLIN RESISTANT STAPH AUREUS... Complete 12/08/19 17:25 Nasopharynx Coronavirus COVID-19 PCR (DORINA) - Final Complete 12/08/19 15:25 Urine,Clean Catch Urine Culture - Preliminary Resulted 12/09/19 02:40 Rectum VRE Culture - Final NO VANCOMYCIN RESISTANT ENTEROCOCCUS ... Complete 12/09/19 02:40 Rectum - Final NO CARBAPENEM-RESISTANT ENTEROBACTERI... Complete Current Medications Medications (Trade) Dose Ordered Sig/Myron Route PRN Reason Start Time Stop Time Status Last Admin Dose Admin Acetaminophen (Tylenol) 650 mg Q6H PRN ORAL Mild Pain (Pain Scale 1-3) 12/08/19 21:45 01/07/20 21:44 Acetaminophen/ Hydrocodone Bitart ([place] 5/325) 1 tab Q6H PRN ORAL Moderate Pain (Pain Scale 4-6) 12/08/19 22:00 12/15/19 21:59 Cefepime HCl 1 gm/ Dextrose 55 ml @ 110 mls/hr Q24H IVPB 12/08/19 21:00 12/15/19 20:59 12/10/19 22:22 Dextrose (Dextrose 50%) 25 ml Q30M PRN IV Hypoglycemia 12/08/19 21:45 03/07/20 21:44 Dextrose (Dextrose 50%) 50 ml Q30M PRN IV Hypoglycemia 12/08/19 21:45 03/07/20 21:44 Dextrose/Sodium Chloride 1,000 ml @ 75 mls/hr [id number] IV 12/09/19 08:08 01/08/20 08:07 12/11/19 00:08 Docusate Sodium (Colace) 100 mg THREE TIMES A DAY ORAL 12/09/19 09:00 01/08/20 08:59 12/11/19 09:16 Heparin Sodium (Porcine) (Heparin 5000 units/ml) 5,000 units EVERY 12 HOURS SUBQ 12/09/19 09:00 01/23/20 08:59 12/11/19 09:16 Hydralazine HCl (Apresoline) 10 mg Q6HR ORAL 12/10/19 12:15 03/09/20 12:14 12/11/19 06:00 Hydralazine HCl (Apresoline) 25 mg Q4H PRN ORAL Blood pressure over 160 systol 12/09/19 08:15 03/08/20 08:14 12/10/19 22:23 Hydromorphone HCl (Dilaudid) 0.5 mg Q6H PRN IVP Severe Pain (Pain Scale 7-10) 12/08/19 22:00 12/15/19 21:59 Insulin Aspart (NovoLOG) BEFORE MEALS AND HS SUBQ 12/09/19 06:30 03/08/20 06:29 12/11/19 06:52 Lorazepam (Ativan 2mg/ml 1ml) 1 mg Q6H PRN IV For Anxiety 12/08/19 21:45 12/15/19 21:44 12/09/19 00:32 Pantoprazole (Protonix) 40 mg Q12HR ORAL 12/09/19 09:00 01/08/20 08:59 12/11/19 09:16 Assessment/Plan Assessment/Plan IMPRESSION: 1. Failure to thrive 2. Dementia. 3. Possible UTI. 4. Atelectasis. DISCUSSION: Admit to the hospital. The patient has renal failure, has been seen by Nephrology. Continue IV fluid hydration and broad-spectrum antibiotics. I will follow carefully. Currently saturating well on low-flow oxygen. Francis Portillo M.D. Francis Portillo MD December 11, 2019 10:35
--- NOTE | 2019-12-11 11:29 | General Progress Note ---
Assessment/Plan Status: stable Assessment/Plan: S: limted verbal communication O: agitated. poor historian. seems comfortable. PHYSICAL EXAMINATION:HEAD AND NECK: Atraumatic and normocephalic. CHEST: Clear to auscultation.HEART: S1, S2. Regular rate and rhythm. ABDOMEN: Soft. No organomegaly.MUSCULOSKELETAL: Positive for the spontaneous movements of upper extremity. Limited evaluation for the lower extremity as the patient is not moving leg and is not following any commands. LABORATORY Medication AND DIAGNOSTIC DATA: dated December 10 reviwed ASSESSMENT: 1. Acute metabolic encephalopathy. 2. UTI. 3. Pulmonary infiltrations. Possibility of COVID. 4. Chronic encephalomalacia. 5. Psychiatric disorder. 6. Chronic pain. 7. GI and DVT prophylaxis. PLAN OF CARE: start PO bp medication current empirical abx I spoke to her daughter on December 08, at appx 5 PM. I discussed overal medical cnd with her Initiate and will titrate Hydralazin to optimize BP Subjective Allergies: Coded Allergies: MORPHINE (Verified Allergy, Intermediate, HALLUCINATIONS, 03/03/13) Objective Last 24 Hour Vital Signs Date Time Temp Pulse Resp B/P (MAP) Pulse Ox O2 Delivery O2 Flow Rate FiO2 12/11/19 09:32 83 12/11/19 09:00 Nasal Cannula 2.0 12/11/19 08:00 93 12/11/19 08:00 99.3 87 18 168/90 (116) 97 12/11/19 06:00 169/82 12/11/19 00:17 92 12/11/19 00:00 172/85 12/10/19 22:23 162/85 12/10/19 21:00 Nasal Cannula 2.0 12/10/19 21:00 Nasal Cannula 2.0 12/10/19 20:00 97.5 77 21 162/85 (110) 92 12/10/19 20:00 84 12/10/19 17:35 162/84 12/10/19 16:01 98.1 84 18 162/84 (110) 100 12/10/19 12:15 171/90 12/10/19 12:00 97.7 79 18 160/82 (108) 100 Height (Feet): 5 Height (Inches): 5.00 Weight (Pounds): 197 Jania Choudhary MD December 11, 2019 11:29
[2019-12-11 12:00] VITALS: BP 169/87
[2019-12-11] MEDS: HydrALAZINE 25mg tab ORAL PRN (12:46)
[2019-12-11] MEDS: LORazepam Inj 2mg/ml 1ml IV PRN (12:47)
[2019-12-11 13:26] VITALS: BP 154/67
--- NOTE | 2019-12-11 13:42 | Nephrology Progress Note ---
Assessment/Plan Problem List: (1) ROBYN (acute kidney injury) Assessment: Improved (2) Dehydration (3) UTI (urinary tract infection) (4) Sepsis (5) Hyperkalemia (6) Hypertension Assessment Renal failure most likely acute on chronic, patient medication list included Celebrex and ibuprofen Sepsis, pneumonia, suspected COVID-19 infection Hyperkalemia on presentation to the ER Anemia UTI Toxic metabolic encephalopathy with history of dementia Plan COVID-19 test negative done December 07 Slow hydration Adjust blood pressure medication Hold nonsteroidal anti-inflammatories Avoid nephrotoxic's Monitor renal parameters and urine output Castillo catheter Kidney ultrasound pending Anemia work-up Per orders Subjective ROS Limited/Unobtainable: No Constitutional: Reports: malaise Objective Objective Last 24 Hour Vital Signs Date Time Temp Pulse Resp B/P (MAP) Pulse Ox O2 Delivery O2 Flow Rate FiO2 12/11/19 13:26 154/67 (96) 12/11/19 12:46 169/87 12/11/19 12:00 99.1 88 18 169/87 (114) 96 12/11/19 12:00 87 12/11/19 09:32 83 12/11/19 09:00 Nasal Cannula 2.0 12/11/19 08:00 93 12/11/19 08:00 99.3 87 18 168/90 (116) 97 12/11/19 06:00 169/82 12/11/19 00:17 92 12/11/19 00:00 172/85 12/10/19 22:23 162/85 12/10/19 21:00 Nasal Cannula 2.0 12/10/19 21:00 Nasal Cannula 2.0 12/10/19 20:00 97.5 77 21 162/85 (110) 92 12/10/19 20:00 84 12/10/19 17:35 162/84 12/10/19 16:01 98.1 84 18 162/84 (110) 100 No labs drawn today Height (Feet): 5 Height (Inches): 5.00 Weight (Pounds): 197 General Appearance: no apparent distress Cardiovascular: tachycardia Respiratory/Chest: decreased breath sounds Abdomen: soft, other - Obese Brendan Elena MD December 11, 2019 13:42
[2019-12-11] MEDS ORDERED: HydrALAZINE 25mg tab ORAL SCH (14:00)
[2019-12-11] MEDS: HydrALAZINE 50mg tab ORAL SCH ×2 (14:17→22:36)
[2019-12-11 16:00] VITALS: BP 163/84
--- NOTE | 2019-12-11 16:28 | NUR ---
CASE MANAGEMENT:REVIEW 12/11/19 SI; ENCEPHALOPATHY. UTI. FTT COVID 19 NOT DETECTED 98.2 90 18 163/84 95% ON 2L/NC IS: IV CEFEPIME Q24HRS LOPRESSOR PO Q12 IVF@50/HR HYDRALAZINE PO Q8HRS HEPARIN SQ Q12 PROTONIX PO Q12 COLACE PO TID : TELEMETRY STATUS DCP: FROM HOME
--- NOTE | 2019-12-11 16:29 | Infectious Diseases Prog Note ---
Assessment/Plan Problems: (1) Pneumonia Assessment & Plan: suspect due to altered mental status , and possible aspiration , already on cefepime empiric coverage , repeat CXR (2) UTI (urinary tract infection) Assessment & Plan: with negative culture , suspect sterile pyuria , no need to treat , continue cefepime empiric coverage for possible pneumonia , monitor blood culture (3) Dehydration Assessment & Plan: Continue IV fluid for hydration with close monitoring of electrolytes (4) Episode of generalized weakness Assessment & Plan: Suspect due to the above continue hydration and antibiotics avoid narcotics (5) Altered mental state Assessment & Plan: Suspect due to the above with dehydration and renal failure continue supportive care with fluid and antibiotics monitor closely in telemetry (6) ROBYN (acute kidney injury) Assessment & Plan: Suspect nonsteroidal anti-inflammatory medications induced with dehydration, continue hydration avoid nephrotoxic's, renal eval (7) Suspected 2019 novel coronavirus infection Assessment & Plan: keep an enhanced droplet isolation pending PCR test Subjective Constitutional: Reports: fatigue HEENT: Reports: no symptoms Respiratory: Reports: no symptoms Breasts: Reports: no symptoms Cardiovascular: Reports: no symptoms Gastrointestinal/Abdominal: Reports: no symptoms Genitourinary: Reports: no symptoms Neurologic: Reports: weakness, confusion Psychiatric: Reports: no symptoms Skin: Reports: no symptoms Endocrine: Reports: no symptoms Hematologic: Reports: no symptoms Musculoskeletal: Reports: no symptoms Allergies: Coded Allergies: MORPHINE (Verified Allergy, Intermediate, HALLUCINATIONS, 03/03/13) Subjective she was more awake and responsive, sating well on 2 L nasal cannula, no fever or chills no cough or shortness of breath and no diarrhea Objective Vital Signs Last 24 Hour Vital Signs Date Time Temp Pulse Resp B/P (MAP) Pulse Ox O2 Delivery O2 Flow Rate FiO2 12/11/19 16:00 98.2 90 18 163/84 (110) 95 12/11/19 14:17 154/67 12/11/19 14:17 87 154/67 12/11/19 13:26 154/67 (96) 12/11/19 12:46 169/87 12/11/19 12:00 99.1 88 18 169/87 (114) 96 12/11/19 12:00 87 12/11/19 09:32 83 12/11/19 09:00 Nasal Cannula 2.0 12/11/19 08:00 93 12/11/19 08:00 99.3 87 18 168/90 (116) 97 12/11/19 06:00 169/82 12/11/19 00:17 92 12/11/19 00:00 172/85 12/10/19 22:23 162/85 12/10/19 21:00 Nasal Cannula 2.0 12/10/19 21:00 Nasal Cannula 2.0 12/10/19 20:00 97.5 77 21 162/85 (110) 92 12/10/19 20:00 84 12/10/19 17:35 162/84 Height (Feet): 5 Height (Inches): 5.00 Weight (Pounds): 197 General Appearance: WD/WN, no acute distress HEENT: normocephalic, atraumatic, anicteric, mucous membranes moist, PERRL Respiratory/Chest: chest wall non-tender, lungs clear, normal breath sounds, no respiratory distress, no accessory muscle use Cardiovascular: normal peripheral pulses, normal rate, regular rhythm, no gallop/murmur, no JVD Abdomen: normal bowel sounds, soft, non tender, no organomegaly, non distended , no mass, no scars Genitourinary: normal external genitalia Extremities: no cyanosis, no clubbing Skin: no rash, no lesions, no ulcers 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 Complete 12/08/19 17:25 Nasopharynx Coronavirus COVID-19 PCR ([facility]) - Final Complete 12/09/19 02:40 Rectum VRE Culture - Final NO VANCOMYCIN RESISTANT ENTEROCOCCUS ... Complete 12/09/19 02:40 Rectum - Final NO CARBAPENEM-RESISTANT ENTEROBACTERI... Complete Current Medications Medications (Trade) Dose Ordered Sig/Myron Route PRN Reason Start Time Stop Time Status Last Admin Dose Admin Acetaminophen (Tylenol) 650 mg Q6H PRN ORAL Mild Pain (Pain Scale 1-3) 12/08/19 21:45 01/07/20 21:44 Acetaminophen/ Hydrocodone Bitart ([place] 5/325) 1 tab Q6H PRN ORAL Moderate Pain (Pain Scale 4-6) 12/08/19 22:00 12/15/19 21:59 Cefepime HCl 1 gm/ Dextrose 55 ml @ 110 mls/hr Q24H IVPB 12/08/19 21:00 12/15/19 20:59 12/10/19 22:22 Dextrose (Dextrose 50%) 25 ml Q30M PRN IV Hypoglycemia 12/08/19 21:45 03/07/20 21:44 Dextrose (Dextrose 50%) 50 ml Q30M PRN IV Hypoglycemia 12/08/19 21:45 03/07/20 21:44 Dextrose/Sodium Chloride 1,000 ml @ 50 mls/hr Q20H IV 12/11/19 14:00 01/10/20 13:59 12/11/19 14:17 Docusate Sodium (Colace) 100 mg THREE TIMES A DAY ORAL 12/09/19 09:00 01/08/20 08:59 12/11/19 13:13 Heparin Sodium (Porcine) (Heparin 5000 units/ml) 5,000 units EVERY 12 HOURS SUBQ 12/09/19 09:00 01/23/20 08:59 12/11/19 09:16 Hydralazine HCl (Apresoline) 25 mg Q4H PRN ORAL Blood pressure over 160 systol 12/09/19 08:15 03/08/20 08:14 12/11/19 12:46 Hydralazine HCl (Apresoline) 50 mg EVERY 8 HOURS ORAL 12/11/19 14:00 03/09/20 12:14 12/11/19 14:17 Hydromorphone HCl (Dilaudid) 0.5 mg Q6H PRN IVP Severe Pain (Pain Scale 7-10) 12/08/19 22:00 12/15/19 21:59 Insulin Aspart (NovoLOG) BEFORE MEALS AND HS SUBQ 12/09/19 06:30 03/08/20 06:29 12/11/19 06:52 Lorazepam (Ativan 2mg/ml 1ml) 1 mg Q6H PRN IV For Anxiety 12/08/19 21:45 12/15/19 21:44 12/11/19 12:47 Metoprolol Tartrate (Lopressor) 25 mg Q12HR ORAL 12/11/19 21:00 03/10/20 20:59 Pantoprazole (Protonix) 40 mg Q12HR ORAL 12/09/19 09:00 01/08/20 08:59 12/11/19 09:16 Reece Rocha M.D. December 11, 2019 16:28
--- NOTE | 2019-12-11 19:30 | NUR ---
HANDOFF REPORT PM Verbal report received from Baltazar NAPIER: HR down to 40's, de-sat to 50's. Resp Therapist nasal suction with sats returning to 90's and 100% and HR returning to 70's 80's. CT of ABD r/o infection completed, results pending. 08/01 NS @ 100 mls X1 infusing then TKO. Glucerna 1.5 at 50 mls/h. Bed currently avail. [facility] [place] [address] [place] [address] Accept after 7p.m. No current D/C orders noted. Pt awake in bed.Venturi Mask 6L 35% FIO2. No distress. No SOB. Cont. to monitor and assist as needed. Addendum: 12/11/19 at 2041 by OSORIO QUINONEZ RN RN Disregard above noted text. "Wrong patient".
--- NOTE | 2019-12-11 19:34 | NUR ---
HAND-OFF: Report given to KARTHIKEYAN Lopez. Ama's stable, plan of care endorsed.
--- NOTE | 2019-12-11 19:34 | NUR ---
HANDOFF REPORT PM Verbal report from Marija RN: Right AC IV line out. Only left wrist 22 ga. remain D5 1/2 NS at new rate of 50 ml/h. Updated daughter Kathleen of pt status as same. Pt presenting with increased disorientation observable difference from morning to late noon. Possible sun-downer's. Cont to monitor. Received awake in bed. No distress. No SOB. Monitor and assist as needed.
[2019-12-11 20:00] VITALS: BP 154/82
--- NOTE | 2019-12-11 22:15 | Cardiology Progress Note ---
Assessment/Plan Assessment/Plan 1. Extreme fatigue and SOB, with bilateral infiltration ox CXR with associated lymphopenia and elevated D-dimer, negative for COVID-19 infection. Continue ID follow up. 2. Elevated brain natriuretic peptide, 2D echocardiography shows normal LV systolic function with LVEF at 60% and mild pulmonary HTN. 3. Dyslipidemia. 4. Acute kidney injury, resolving, creat to 1.3. Subjective Subjective Sinus rhythm at rate of 89. Objective Last 24 Hour Vital Signs Date Time Temp Pulse Resp B/P (MAP) Pulse Ox O2 Delivery O2 Flow Rate FiO2 12/11/19 20:00 97.7 89 18 154/82 (106) 95 12/11/19 16:00 98.2 90 18 163/84 (110) 95 12/11/19 16:00 89 12/11/19 14:17 154/67 12/11/19 14:17 87 154/67 12/11/19 13:26 154/67 (96) 12/11/19 12:46 169/87 12/11/19 12:00 99.1 88 18 169/87 (114) 96 12/11/19 12:00 87 12/11/19 09:32 83 12/11/19 09:00 Nasal Cannula 2.0 12/11/19 08:00 93 12/11/19 08:00 99.3 87 18 168/90 (116) 97 12/11/19 06:00 169/82 12/11/19 00:17 92 12/11/19 00:00 172/85 12/10/19 22:23 162/85 Intake and Output 12/10/19 12/11/19 19:00 07:00 Intake Total 75 ml Balance 75 ml IV Total 75 ml 2D Echo: EF 60%, Grade I LVDD, RVSP 39 mmHg, MIld MR, Mild-Mod AR Microbiology Date/Time Source Procedure Growth Status 12/09/19 02:40 Nasal Nares Left MRSA Culture - Final NO METHICILLIN RESISTANT STAPH AUREUS... Complete 12/09/19 02:40 Rectum VRE Culture - Final NO VANCOMYCIN RESISTANT ENTEROCOCCUS ... Complete 12/09/19 02:40 Rectum - Final NO CARBAPENEM-RESISTANT ENTEROBACTERI... Complete Objective HEENT: Atraumatic and normocephalic. Anicteric. Pupils are equal, round, and reactive to light and accommodation. Extraocular muscles intact. NECK: JVP less than 5 cm. No carotid bruit. Carotid upstrokes 2+ bilaterally. CARDIOVASCULAR: Normal S1, S2. Regular rate and rhythm. No murmurs, gallops, or rubs. PMI is at fourth intercostal space in the midclavicular line. LUNGS: Clear to auscultation bilaterally. ABDOMEN: Soft, nontender, and nondistended. No hepatosplenomegaly. Positive bowel sounds. EXTREMITIES: No evidence of edema, clubbing, or cyanosis. Art Mayberry MD December 11, 2019 22:15
--- NOTE | 2019-12-11 22:30 | NUR ---
Left wrist 22 ga IV found out. Pt restless. Sundowner-like symptoms.
[2019-12-11] MEDS: Cefepime HCl 1 GM in D5W 55 ML IVPB SCH (22:45)
--- NOTE | 2019-12-12 | NUR ---
Started 20 ga Left hand with Kerlix wrap to secure. Ativan 1 mg given iv.
[2019-12-12] MEDS: NovoLOG Insulin Flexpen SUBQ SCH ×4 (06:30→21:00)
--- NOTE | 2019-12-12 07:30 | NUR ---
HANDOFF REPORT AM ENDORSED PLAN OF CARE TO SAME RETURNING NURSE. NO CHANGES. CONTINUES CONFUSED. RESTLESS AL NIGHT. ATIVAN NOT EFFECTIVE.. RELINQUISHED CARE OF PT AT THIS TIME.
[2019-12-12] MEDS: HydrALAZINE 50mg tab ORAL SCH ×3 (07:44→21:36)
--- NOTE | 2019-12-12 07:45 | NUR ---
NURSE NOTES: Nurse report given by KARTHIKEYAN Lopez. Patient's awake in bed, confused, AO x 2, agitated and tried to climb out of bed. Breathing tachypneic, talk therapy give, patient fall teaching given, rest reassurance, patient agreed to calm down and stay in bed. IV is running fluid, no s/s of tenderness or infiltration, secure wrapped with kerlix. Bed low and locked, call light within reach, side rails x 3, bed alarm is armed. Will continue to monitor closely.
[2019-12-12 08:00] VITALS: BP 165/81
[2019-12-12] MEDS: HydrALAZINE 25mg tab ORAL PRN (08:46)
[2019-12-12] MEDS: LORazepam Inj 2mg/ml 1ml IV PRN (08:46)
[2019-12-12] MEDS: Docusate 100mg cap ORAL SCH ×3 (08:46→18:00)
[2019-12-12] MEDS: Heparin 5000 units/ml inj SUBQ SCH ×2 (08:48→21:37)
[2019-12-12] MEDS: D5 1/2NS 1,000 ML IV SCH (10:00)
--- NOTE | 2019-12-12 10:20 | Pulmonology Progress Note ---
Subjective ROS Limited/Unobtainable: No Interval Events: None new reported Constitutional: Reports: fatigue HEENT: Repors: no symptoms Respiratory: Reports: no symptoms Cardiovascular: Reports: no symptoms Gastrointestinal/Abdominal: Reports: no symptoms Psychiatric: Reports: no symptoms Skin: Reports: no symptoms Musculoskeletal: Reports: no symptoms Allergies: Coded Allergies: MORPHINE (Verified Allergy, Intermediate, HALLUCINATIONS, 03/03/13) Objective Last 24 Hour Vital Signs Date Time Temp Pulse Resp B/P (MAP) Pulse Ox O2 Delivery O2 Flow Rate FiO2 12/12/19 09:00 Nasal Cannula 2.0 12/12/19 08:46 82 165/81 12/12/19 08:46 165/81 12/12/19 08:00 97.2 82 20 165/81 (109) 93 12/12/19 07:44 154/82 12/12/19 04:00 93 12/12/19 00:17 88 12/11/19 22:37 89 154/82 12/11/19 22:36 154/82 12/11/19 21:00 Nasal Cannula 2.0 12/11/19 20:00 97.7 89 18 154/82 (106) 95 12/11/19 20:00 88 12/11/19 16:00 98.2 90 18 163/84 (110) 95 12/11/19 16:00 89 12/11/19 14:17 154/67 12/11/19 14:17 87 154/67 12/11/19 13:26 154/67 (96) 12/11/19 12:46 169/87 12/11/19 12:00 99.1 88 18 169/87 (114) 96 12/11/19 12:00 87 Intake and Output 12/11/19 12/12/19 19:00 07:00 Intake Total 1085 ml Output Total 600 ml Balance 485 ml Intake Oral 510 ml IV Total 575 ml Output Urine Total 600 ml # Voids 1 General Appearance: WD/WN, no acute distress HEENT: normocephalic, atraumatic, anicteric, mucous membranes moist, PERRL Abdomen: normal bowel sounds, soft, non tender, no organomegaly, non distended , no mass, no scars Genitourinary: normal external genitalia Extremities: no cyanosis, no clubbing Skin: no rash, no lesions, no ulcers 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, alert, responsive Lymphatic: no neck adenopathy, no groin adenopathy Musculoskeletal: normal muscle bulk, no effusion Current Medications Medications (Trade) Dose Ordered Sig/Myron Route PRN Reason Start Time Stop Time Status Last Admin Dose Admin Acetaminophen (Tylenol) 650 mg Q6H PRN ORAL Mild Pain (Pain Scale 1-3) 12/08/19 21:45 01/07/20 21:44 Acetaminophen/ Hydrocodone Bitart ([place] 5/325) 1 tab Q6H PRN ORAL Moderate Pain (Pain Scale 4-6) 12/08/19 22:00 12/15/19 21:59 Cefepime HCl 1 gm/ Dextrose 55 ml @ 110 mls/hr Q24H IVPB 12/08/19 21:00 12/15/19 20:59 12/11/19 22:45 Dextrose (Dextrose 50%) 25 ml Q30M PRN IV Hypoglycemia 12/08/19 21:45 03/07/20 21:44 Dextrose (Dextrose 50%) 50 ml Q30M PRN IV Hypoglycemia 12/08/19 21:45 03/07/20 21:44 Dextrose/Sodium Chloride 1,000 ml @ 50 mls/hr Q20H IV 12/11/19 14:00 01/10/20 13:59 12/11/19 14:17 Docusate Sodium (Colace) 100 mg THREE TIMES A DAY ORAL 12/09/19 09:00 01/08/20 08:59 12/12/19 08:46 Heparin Sodium (Porcine) (Heparin 5000 units/ml) 5,000 units EVERY 12 HOURS SUBQ 12/09/19 09:00 01/23/20 08:59 12/12/19 08:48 Hydralazine HCl (Apresoline) 25 mg Q4H PRN ORAL Blood pressure over 160 systol 12/09/19 08:15 03/08/20 08:14 12/12/19 08:46 Hydralazine HCl (Apresoline) 50 mg EVERY 8 HOURS ORAL 12/11/19 14:00 03/09/20 12:14 12/12/19 07:44 Hydromorphone HCl (Dilaudid) 0.5 mg Q6H PRN IVP Severe Pain (Pain Scale 7-10) 12/08/19 22:00 12/15/19 21:59 Insulin Aspart (NovoLOG) BEFORE MEALS AND HS SUBQ 12/09/19 06:30 03/08/20 06:29 12/11/19 06:52 Lorazepam (Ativan 2mg/ml 1ml) 1 mg Q6H PRN IV For Anxiety 12/08/19 21:45 12/15/19 21:44 12/12/19 08:46 Metoprolol Tartrate (Lopressor) 25 mg Q12HR ORAL 12/11/19 21:00 03/10/20 20:59 12/12/19 08:46 Pantoprazole (Protonix) 40 mg Q12HR ORAL 12/09/19 09:00 01/08/20 08:59 12/12/19 08:46 Assessment/Plan Assessment/Plan IMPRESSION: 1. Failure to thrive 2. Dementia. 3. Possible UTI. 4. Atelectasis. DISCUSSION: Continue IV fluid hydration and broad-spectrum antibiotics. I will follow carefully. Currently saturating well on low-flow oxygen. Francis Portillo M.D. Francis Portillo MD December 12, 2019 10:20
[2019-12-12 10:56] LABS: ALANINE AMINOTRANSFERASE 31 U/L (12-78); ALBUMIN/GLOBULIN RATIO 0.8 (1.0-2.7); ALKALINE PHOSPHATASE 146 U/L (46-116); ANION GAP 9 mmol/L (5-15); ASPARTATE AMINO TRANSFERASE 29 U/L (15-37); BILIRUBIN,TOTAL 0.5 MG/DL (0.2-1.0); BLOOD UREA NITROGEN 22 mg/dL (7-18); CALCIUM 9.6 MG/DL (8.5-10.1); CARBON DIOXIDE 26 MMOL/L (21-32); CHLORIDE 110 MMOL/L (98-107); CREATININE 0.9 MG/DL (0.55-1.30); POTASSIUM 3.3 MMOL/L (3.5-5.1); SODIUM 145 MMOL/L (136-145)
--- NOTE | 2019-12-12 11:30 | General Progress Note ---
Assessment/Plan Status: stable Assessment/Plan: S: limted verbal communication O: agitated. poor historian. seems comfortable. PHYSICAL EXAMINATION:HEAD AND NECK: Atraumatic and normocephalic. CHEST: Clear to auscultation.HEART: S1, S2. Regular rate and rhythm. ABDOMEN: Soft. No organomegaly.MUSCULOSKELETAL: Positive for the spontaneous movements of upper extremity. Limited evaluation for the lower extremity as the patient is moving leg and is following commands. LABORATORY Medication AND DIAGNOSTIC DATA: dated December 11 reviwed ASSESSMENT: 1. Acute metabolic encephalopathy. 2. UTI. 3. Pulmonary infiltrations. Possibility of COVID. 4. Chronic encephalomalacia. 5. Psychiatric disorder. 6. Chronic pain. 7. GI and DVT prophylaxis. PLAN OF CARE: start PO bp medication current empirical abx I spoke to her daughter on December 08, at appx 5 PM. I discussed overal medical cnd with her Initiate and will titrate Hydralazin to optimize BP PT / OT, failed Swallow test GI to assess PEG insertion Subjective Allergies: Coded Allergies: MORPHINE (Verified Allergy, Intermediate, HALLUCINATIONS, 03/03/13) Objective Last 24 Hour Vital Signs Date Time Temp Pulse Resp B/P (MAP) Pulse Ox O2 Delivery O2 Flow Rate FiO2 12/12/19 09:00 Nasal Cannula 2.0 12/12/19 08:46 82 165/81 12/12/19 08:46 165/81 12/12/19 08:00 97.2 82 20 165/81 (109) 93 12/12/19 07:44 154/82 12/12/19 04:00 93 12/12/19 00:17 88 12/11/19 22:37 89 154/82 12/11/19 22:36 154/82 12/11/19 21:00 Nasal Cannula 2.0 12/11/19 20:00 97.7 89 18 154/82 (106) 95 12/11/19 20:00 88 12/11/19 16:00 98.2 90 18 163/84 (110) 95 12/11/19 16:00 89 12/11/19 14:17 154/67 12/11/19 14:17 87 154/67 12/11/19 13:26 154/67 (96) 12/11/19 12:46 169/87 12/11/19 12:00 99.1 88 18 169/87 (114) 96 12/11/19 12:00 87 Intake and Output 12/11/19 12/12/19 19:00 07:00 Intake Total 1085 ml Output Total 600 ml Balance 485 ml Intake Oral 510 ml IV Total 575 ml Output Urine Total 600 ml # Voids 1 Laboratory Tests 12/12/19 09:55: Sodium Level 145, Potassium Level 3.3L, Chloride Level 110H, Carbon Dioxide Level 26, Anion Gap 9, Blood Urea Nitrogen 22H, Creatinine 0.9, Estimat Glomerular Filtration Rate > 60, Glucose Level 111H, Calcium Level 9.6, Phosphorus Level 2.0L, Magnesium Level 1.9, Total Bilirubin 0.5, Aspartate Amino Transf (AST/SGOT) 29, Alanine Aminotransferase (ALT/SGPT) 31, Alkaline Phosphatase 146H, Total Protein 6.9, Albumin 3.0L, Globulin 3.9, Albumin/ Globulin Ratio 0.8L Height (Feet): 5 Height (Inches): 5.00 Weight (Pounds): 197 Jania Choudhary MD December 12, 2019 11:30
--- NOTE | 2019-12-12 11:36 | Nephrology Progress Note ---
Assessment/Plan Problem List: (1) ROBYN (acute kidney injury) Assessment: Improved (2) Dehydration (3) UTI (urinary tract infection) (4) Sepsis (5) Hyperkalemia (6) Hypertension Assessment Renal failure most likely acute on chronic, patient medication list included Celebrex and ibuprofen Sepsis, pneumonia, suspected COVID-19 infection Hyperkalemia on presentation to the ER Anemia UTI Toxic metabolic encephalopathy with history of dementia Plan COVID-19 test negative done December 07 Potassium, phosphorus, magnesium supplement as needed Slow hydration Adjust blood pressure medication Hold nonsteroidal anti-inflammatories Avoid nephrotoxic's Monitor renal parameters and urine output Castillo catheter Kidney ultrasound initially ordered was never done ! at this time renal parameters normalized Anemia work-up Per orders Subjective ROS Limited/Unobtainable: No Constitutional: Reports: malaise Objective Objective Last 24 Hour Vital Signs Date Time Temp Pulse Resp B/P (MAP) Pulse Ox O2 Delivery O2 Flow Rate FiO2 12/12/19 09:00 Nasal Cannula 2.0 12/12/19 08:46 82 165/81 12/12/19 08:46 165/81 12/12/19 08:00 97.2 82 20 165/81 (109) 93 12/12/19 07:44 154/82 12/12/19 04:00 93 12/12/19 00:17 88 12/11/19 22:37 89 154/82 12/11/19 22:36 154/82 12/11/19 21:00 Nasal Cannula 2.0 12/11/19 20:00 97.7 89 18 154/82 (106) 95 12/11/19 20:00 88 12/11/19 16:00 98.2 90 18 163/84 (110) 95 12/11/19 16:00 89 12/11/19 14:17 154/67 12/11/19 14:17 87 154/67 12/11/19 13:26 154/67 (96) 12/11/19 12:46 169/87 12/11/19 12:00 99.1 88 18 169/87 (114) 96 12/11/19 12:00 87 Intake and Output 12/11/19 12/12/19 19:00 07:00 Intake Total 1085 ml Output Total 600 ml Balance 485 ml Intake Oral 510 ml IV Total 575 ml Output Urine Total 600 ml # Voids 1 Laboratory Tests 5/14/20 09:55: Sodium Level 145, Potassium Level 3.3L, Chloride Level 110H, Carbon Dioxide Level 26, Anion Gap 9, Blood Urea Nitrogen 22H, Creatinine 0.9, Estimat Glomerular Filtration Rate > 60, Glucose Level 111H, Calcium Level 9.6, Phosphorus Level 2.0L, Magnesium Level 1.9, Total Bilirubin 0.5, Aspartate Amino Transf (AST/SGOT) 29, Alanine Aminotransferase (ALT/SGPT) 31, Alkaline Phosphatase 146H, Total Protein 6.9, Albumin 3.0L, Globulin 3.9, Albumin/ Globulin Ratio 0.8L Height (Feet): 5 Height (Inches): 5.00 Weight (Pounds): 197 General Appearance: no apparent distress Cardiovascular: tachycardia - Rate in 80s Respiratory/Chest: decreased breath sounds Abdomen: soft Brendan Elena MD December 12, 2019 11:36
[2019-12-12 12:00] VITALS: BP_SYST 169; BP_DIAS 86; BP_DIAS 87
[2019-12-12] MEDS ORDERED: Potassium Phosphate 20 MM in NS 275 ML IV ONE (13:00)
--- NOTE | 2019-12-12 15:41 | Infectious Diseases Prog Note ---
Assessment/Plan Problems: (1) Pneumonia Assessment & Plan: suspect due to altered mental status , and possible aspiration , already on cefepime empiric coverage for 7 days , monitor CXR (2) UTI (urinary tract infection) Assessment & Plan: with negative culture , suspect sterile pyuria , no need to treat , continue cefepime empiric coverage for possible pneumonia , monitor blood culture (3) Dehydration Assessment & Plan: Continue IV fluid for hydration with close monitoring of electrolytes (4) Episode of generalized weakness Assessment & Plan: Suspect due to the above continue hydration and antibiotics avoid narcotics (5) Altered mental state Assessment & Plan: Suspect due to the above with dehydration and renal failure continue supportive care with fluid and antibiotics monitor closely in telemetry (6) ROBYN (acute kidney injury) Assessment & Plan: Suspect nonsteroidal anti-inflammatory medications induced with dehydration, continue hydration avoid nephrotoxic's, renal eval (7) Suspected 2019 novel coronavirus infection Assessment & Plan: with negative PCR test may remove from enhanced droplet isolation Subjective ROS Limited/Unobtainable: Yes Allergies: Coded Allergies: MORPHINE (Verified Allergy, Intermediate, HALLUCINATIONS, 03/03/13) Subjective she was more awake and responsive, but confused and agitated, trying to climb out of bed , no fever or chills no cough or shortness of breath and no diarrhea Objective Vital Signs Last 24 Hour Vital Signs Date Time Temp Pulse Resp B/P (MAP) Pulse Ox O2 Delivery O2 Flow Rate FiO2 12/12/19 13:12 169/86 12/12/19 12:00 96.8 87 18 169/86 (113) 93 12/12/19 12:00 87 12/12/19 09:00 Nasal Cannula 2.0 12/12/19 08:46 82 165/81 12/12/19 08:46 165/81 12/12/19 08:00 97.2 82 20 165/81 (109) 93 12/12/19 08:00 83 12/12/19 07:44 154/82 12/12/19 04:00 93 12/12/19 00:17 88 12/11/19 22:37 89 154/82 12/11/19 22:36 154/82 12/11/19 21:00 Nasal Cannula 2.0 12/11/19 20:00 97.7 89 18 154/82 (106) 95 5/13/20 20:00 88 12/11/19 16:00 98.2 90 18 163/84 (110) 95 12/11/19 16:00 89 Height (Feet): 5 Height (Inches): 5.00 Weight (Pounds): 197 General Appearance: WD/WN, no acute distress HEENT: normocephalic, atraumatic, anicteric, mucous membranes moist, PERRL Respiratory/Chest: chest wall non-tender, lungs clear, normal breath sounds, no respiratory distress, no accessory muscle use Cardiovascular: normal peripheral pulses, normal rate, regular rhythm, no gallop/murmur, no JVD Abdomen: normal bowel sounds, soft, non tender, no organomegaly, non distended , no mass, no scars Extremities: no cyanosis, no clubbing Skin: no rash, no lesions, no ulcers Neurologic/Psychiatric: alert, responsive Lymphatic: no neck adenopathy, no groin adenopathy Musculoskeletal: normal muscle bulk, no effusion Laboratory Tests Test 12/12/19 09:55 Sodium Level 145 MMOL/L (136-145) Potassium Level 3.3 MMOL/L (3.5-5.1) L Chloride Level 110 MMOL/L (98-107) H Carbon Dioxide Level 26 MMOL/L (21-32) Anion Gap 9 mmol/L (5-15) Blood Urea Nitrogen 22 mg/dL (7-18) H Creatinine 0.9 MG/DL (0.55-1.30) Estimat Glomerular Filtration Rate > 60 mL/min (>60) Glucose Level 111 MG/DL (74-106) H Calcium Level 9.6 MG/DL (8.5-10.1) Phosphorus Level 2.0 MG/DL (2.5-4.9) L Magnesium Level 1.9 MG/DL (1.8-2.4) Total Bilirubin 0.5 MG/DL (0.2-1.0) Aspartate Amino Transf (AST/SGOT) 29 U/L (15-37) Alanine Aminotransferase (ALT/SGPT) 31 U/L (12-78) Alkaline Phosphatase 146 U/L (46-116) H Total Protein 6.9 G/DL (6.4-8.2) Albumin 3.0 G/DL (3.4-5.0) L Globulin 3.9 g/dL Albumin/Globulin Ratio 0.8 (1.0-2.7) L Current Medications Medications (Trade) Dose Ordered Sig/Myron Route PRN Reason Start Time Stop Time Status Last Admin Dose Admin Acetaminophen (Tylenol) 650 mg Q6H PRN ORAL Mild Pain (Pain Scale 1-3) 12/08/19 21:45 01/07/20 21:44 Acetaminophen/ Hydrocodone Bitart ([place] 5/325) 1 tab Q6H PRN ORAL Moderate Pain (Pain Scale 4-6) 12/08/19 22:00 12/15/19 21:59 Cefepime HCl 1 gm/ Dextrose 55 ml @ 110 mls/hr Q24H IVPB 12/08/19 21:00 12/15/19 20:59 12/11/19 22:45 Dextrose (Dextrose 50%) 25 ml Q30M PRN IV Hypoglycemia 12/08/19 21:45 03/07/20 21:44 Dextrose (Dextrose 50%) 50 ml Q30M PRN IV Hypoglycemia 12/08/19 21:45 03/07/20 21:44 Dextrose/Sodium Chloride 1,000 ml @ 50 mls/hr Q20H IV 12/11/19 14:00 01/10/20 13:59 12/11/19 14:17 Docusate Sodium (Colace) 100 mg THREE TIMES A DAY ORAL 12/09/19 09:00 01/08/20 08:59 12/12/19 12:51 Heparin Sodium (Porcine) (Heparin 5000 units/ml) 5,000 units EVERY 12 HOURS SUBQ 12/09/19 09:00 01/23/20 08:59 12/12/19 08:48 Hydralazine HCl (Apresoline) 25 mg Q4H PRN ORAL Blood pressure over 160 systol 12/09/19 08:15 03/08/20 08:14 12/12/19 08:46 Hydralazine HCl (Apresoline) 50 mg EVERY 8 HOURS ORAL 12/11/19 14:00 03/09/20 12:14 12/12/19 13:12 Hydromorphone HCl (Dilaudid) 0.5 mg Q6H PRN IVP Severe Pain (Pain Scale 7-10) 12/08/19 22:00 12/15/19 21:59 Insulin Aspart (NovoLOG) BEFORE MEALS AND HS SUBQ 12/09/19 06:30 03/08/20 06:29 12/11/19 06:52 Lorazepam (Ativan 2mg/ml 1ml) 1 mg Q6H PRN IV For Anxiety 12/08/19 21:45 12/15/19 21:44 12/12/19 08:46 Metoprolol Tartrate (Lopressor) 25 mg Q12HR ORAL 12/11/19 21:00 03/10/20 20:59 12/12/19 08:46 Pantoprazole (Protonix) 40 mg Q12HR ORAL 12/09/19 09:00 01/08/20 08:59 12/12/19 08:46 Potassium Phosphate 20 mm/ Sodium Chloride 281.6667 ml @ 46.944 m... ONCE ONCE IV 12/12/19 13:00 12/12/19 18:59 12/12/19 12:51 Reece Rocha M.D. December 12, 2019 15:41
[2019-12-12 16:00] VITALS: BP 157/89
--- NOTE | 2019-12-12 19:20 | NUR ---
NURSE NOTES: Received pt and report from KARTHIKEYAN Stout. Observed pt resting in bed with both eyes open. Pt is A/Ox2. site monitor is in placed; pt is SR. IV site intact, asymptomatic, and patent. Bed is in the lowest position and locked. Call light and bedside table is within reach. No signs/symptoms of acute distress noted at this time. Will continue plan of care.
--- NOTE | 2019-12-12 19:27 | NUR ---
HAND-OFF: Report given to KARTHIKEYAN Huitron. Patient's in stable condition, plan of care endorsed.
[2019-12-12 20:00] VITALS: BP 144/93
[2019-12-12] MEDS: Cefepime HCl 1 GM in D5W 55 ML IVPB SCH (21:35)
[2019-12-13] VITALS: BP 156/87
[2019-12-13] MEDS: LORazepam Inj 2mg/ml 1ml IV PRN (02:53)
--- NOTE | 2019-12-13 02:59 | NUR ---
NURSE NOTES: Pt is restless and keeps fidgeting with blanket and Kerlix gauze that is wrapped around IV site to keep pt from pulling out IV. Administered Ativan 1mg IVP. Will monitor pt closely.
[2019-12-13 04:00] VITALS: BP 162/85
[2019-12-13] MEDS: D5 1/2NS 1,000 ML IV SCH (05:24)
[2019-12-13] MEDS: HydrALAZINE 50mg tab ORAL SCH ×3 (05:26→22:08)
[2019-12-13] MEDS: NovoLOG Insulin Flexpen SUBQ SCH ×4 (06:26→20:40)
--- NOTE | 2019-12-13 07:25 | NUR ---
NURSE NOTES: Received pt A/A/Ox2, forgetfulness. Able to follow commands. No acute cardio-resp distress noted. IV site intact, asymptomatic, and patent. On O2 2L via NC. HOB elevated for aspiration precautions. Bed is in the lowest position, brakes and locked. siderails are upx3. Call light is within reach. Will continue plan of care.
--- NOTE | 2019-12-13 07:27 | NUR ---
HAND-OFF: Report given to KARTHIKEYAN Omer. Plan of care endorsed.
[2019-12-13 08:00] VITALS: BP 142/86
[2019-12-13] MEDS: Docusate 100mg cap ORAL SCH ×3 (08:20→16:58)
[2019-12-13] MEDS: Heparin 5000 units/ml inj SUBQ SCH ×2 (08:21→20:40)
--- NOTE | 2019-12-13 09:52 | NUR ---
RD ASSESSMENT & RECOMMENDATIONS SEE CARE ACTIVITY FOR COMPLETE ASSESSMENT DAILY ESTIMATED NEEDS: Needs based on pulmonary 65kg abw 25-30 kcals/kg 5505-0012 total kcals 1-1.5 g protein/kg 65-98 g total protein 25-30 mL/kg 6300-1323 total fluid mLs NUTRITION DIAGNOSIS: Altered nutrition related labb values r/t clinical status as evidenced by elev K(5.5-> 3.3), elev phso(6.1-> 2.0), elev mg(2.6-> wnl), elev BUN/creat(54/2.8, now improved). CURRENT DIET:Low Na puree PO DIET RECOMMENDATIONS: LOW NA DIET/ liberalized d/t poor po (texture per PATIENT PARTNER) ENTERAL NUTRITION RECOMMENDATIONS: If part of POC, Nepro @38ml/hr x24 hrs to provide 912ml, 1642 kcal, 74g pro, 663ml free H2O - If part of POC w/ continued poor po, rec to obtain GI access, initiate NEPRO @low rate, 18ml/hr for 6 hrs - Advance as tolerated 10ml/hr q4-6 hrs to goal - Flush per MD, HOB over 30 degrees ---- ADDITIONAL RECOMMENDATIONS: 1) Monitor PO intake and need for renal diet restriction -> Add NEPRO TID w/ meals -> pt is full code, rec temporary nonoral feeds w/ continued poor po 2) Continue POC w/ poor po intake, monitor for hypoglycemia -> currently on D5 3) Updated calibrated bed scale wts
--- NOTE | 2019-12-13 11:29 | Pulmonology Progress Note ---
Subjective ROS Limited/Unobtainable: Yes Interval Events: None new reported Constitutional: Reports: fatigue HEENT: Repors: no symptoms Respiratory: Reports: no symptoms Cardiovascular: Reports: no symptoms Gastrointestinal/Abdominal: Reports: no symptoms Psychiatric: Reports: no symptoms Skin: Reports: no symptoms Musculoskeletal: Reports: no symptoms Allergies: Coded Allergies: MORPHINE (Verified Allergy, Intermediate, HALLUCINATIONS, 03/03/13) Objective Last 24 Hour Vital Signs Date Time Temp Pulse Resp B/P (MAP) Pulse Ox O2 Delivery O2 Flow Rate FiO2 12/13/19 08:20 94 142/86 12/13/19 08:00 98.2 94 19 142/86 (104) 96 12/13/19 05:26 169/84 12/13/19 04:00 88 12/13/19 04:00 97.0 92 20 162/85 (110) 96 12/13/19 00:00 80 12/13/19 00:00 97.9 88 19 156/87 (110) 94 12/12/19 21:37 110 144/93 12/12/19 21:36 144/93 12/12/19 21:00 Nasal Cannula 2.0 12/12/19 20:00 99.5 94 19 144/93 (110) 93 12/12/19 20:00 108 12/12/19 16:00 98.1 88 20 157/89 (111) 94 12/12/19 13:12 169/86 12/12/19 12:00 96.8 87 18 169/86 (113) 93 12/12/19 12:00 87 Intake and Output 12/12/19 12/13/19 19:00 07:00 Intake Total 240 ml 200 ml Balance 240 ml 200 ml Intake Oral 240 ml 200 ml # Voids 2 2 General Appearance: WD/WN, no acute distress HEENT: normocephalic, atraumatic, anicteric, mucous membranes moist, PERRL Abdomen: normal bowel sounds, soft, non tender, no organomegaly, non distended , no mass, no scars Genitourinary: normal external genitalia Extremities: no cyanosis, no clubbing Skin: no rash, no lesions, no ulcers Neurologic/Psychiatric: alert, responsive Lymphatic: no neck adenopathy, no groin adenopathy Musculoskeletal: normal muscle bulk, no effusion Current Medications Medications (Trade) Dose Ordered Sig/Myron Route PRN Reason Start Time Stop Time Status Last Admin Dose Admin Acetaminophen (Tylenol) 650 mg Q6H PRN ORAL Mild Pain (Pain Scale 1-3) 12/08/19 21:45 01/07/20 21:44 Acetaminophen/ Hydrocodone Bitart ([place] 5/325) 1 tab Q6H PRN ORAL Moderate Pain (Pain Scale 4-6) 12/08/19 22:00 12/15/19 21:59 Cefepime HCl 1 gm/ Dextrose 55 ml @ 110 mls/hr Q24H IVPB 12/08/19 21:00 12/15/19 20:59 12/12/19 21:35 Dextrose (Dextrose 50%) 25 ml Q30M PRN IV Hypoglycemia 12/08/19 21:45 03/07/20 21:44 Dextrose (Dextrose 50%) 50 ml Q30M PRN IV Hypoglycemia 12/08/19 21:45 03/07/20 21:44 Dextrose/Sodium Chloride 1,000 ml @ 50 mls/hr Q20H IV 12/11/19 14:00 01/10/20 13:59 12/13/19 05:24 Docusate Sodium (Colace) 100 mg THREE TIMES A DAY ORAL 12/09/19 09:00 01/08/20 08:59 12/13/19 08:20 Heparin Sodium (Porcine) (Heparin 5000 units/ml) 5,000 units EVERY 12 HOURS SUBQ 12/09/19 09:00 01/23/20 08:59 12/13/19 08:21 Hydralazine HCl (Apresoline) 25 mg Q4H PRN ORAL Blood pressure over 160 systol 12/09/19 08:15 03/08/20 08:14 12/12/19 08:46 Hydralazine HCl (Apresoline) 50 mg EVERY 8 HOURS ORAL 12/11/19 14:00 03/09/20 12:14 12/13/19 05:26 Hydromorphone HCl (Dilaudid) 0.5 mg Q6H PRN IVP Severe Pain (Pain Scale 7-10) 12/08/19 22:00 12/15/19 21:59 Insulin Aspart (NovoLOG) BEFORE MEALS AND HS SUBQ 12/09/19 06:30 03/08/20 06:29 12/11/19 06:52 Lorazepam (Ativan 2mg/ml 1ml) 1 mg Q6H PRN IV For Anxiety 12/08/19 21:45 12/15/19 21:44 12/13/19 02:53 Metoprolol Tartrate (Lopressor) 25 mg Q12HR ORAL 12/11/19 21:00 03/10/20 20:59 12/13/19 08:20 Pantoprazole (Protonix) 40 mg Q12HR ORAL 12/09/19 09:00 01/08/20 08:59 12/13/19 08:19 Assessment/Plan Assessment/Plan IMPRESSION: 1. Failure to thrive 2. Dementia. 3. Possible UTI. 4. Atelectasis. DISCUSSION: Continue IV fluid hydration and broad-spectrum antibiotics. I will follow carefully. Currently saturating well on low-flow oxygen. Taina Ledesma Omar Syed MD December 13, 2019 11:29
--- NOTE | 2019-12-13 11:57 | NUR ---
NURSE NOTES: MADE PMD REGARDING PATIENT C/O N/V. NO EMESIS NOTED. PATIENT ABLE TO VERBALIZE NEEDS. WILL CONT TO MONITOR.
[2019-12-13 11:58] VITALS: BP 132/85
--- NOTE | 2019-12-13 12:20 | General Progress Note ---
Assessment/Plan Status: stable Assessment/Plan: S: limted verbal communication O: agitated. poor historian. seems comfortable. PHYSICAL EXAMINATION:HEAD AND NECK: Atraumatic and normocephalic. CHEST: Clear to auscultation.HEART: S1, S2. Regular rate and rhythm. ABDOMEN: Soft. No organomegaly.MUSCULOSKELETAL: Positive for the spontaneous movements of upper extremity. Limited evaluation for the lower extremity as the patient is moving leg and is following commands. LABORATORY Medication AND DIAGNOSTIC DATA: dated December 12 reviewed ASSESSMENT: 1. Acute metabolic encephalopathy. 2. UTI. 3. Pulmonary infiltrations. Possibility of COVID. 4. Chronic encephalomalacia. 5. Psychiatric disorder. 6. Chronic pain. 7. GI and DVT prophylaxis. PLAN OF CARE: start PO bp medication current empirical abx I spoke to her daughter on December 08, at appx 5 PM and on December 12 at 1215 hours. I discussed overal medical cnd with her Initiate and will titrate Hydralazin to optimize BP PT / OT Advance feeding as tolerated DC home with C once medically stable. Subjective Allergies: Coded Allergies: MORPHINE (Verified Allergy, Intermediate, HALLUCINATIONS, 03/03/13) Objective Last 24 Hour Vital Signs Date Time Temp Pulse Resp B/P (MAP) Pulse Ox O2 Delivery O2 Flow Rate FiO2 12/13/19 11:58 97.9 92 19 132/85 (101) 97 12/13/19 08:20 94 142/86 12/13/19 08:00 98.2 94 19 142/86 (104) 96 12/13/19 05:26 169/84 12/13/19 04:00 88 12/13/19 04:00 97.0 92 20 162/85 (110) 96 12/13/19 00:00 80 12/13/19 00:00 97.9 88 19 156/87 (110) 94 12/12/19 21:37 110 144/93 12/12/19 21:36 144/93 12/12/19 21:00 Nasal Cannula 2.0 12/12/19 20:00 99.5 94 19 144/93 (110) 93 12/12/19 20:00 108 12/12/19 16:00 98.1 88 20 157/89 (111) 94 12/12/19 13:12 169/86 Intake and Output 12/12/19 12/13/19 19:00 07:00 Intake Total 240 ml 200 ml Balance 240 ml 200 ml Intake Oral 240 ml 200 ml # Voids 2 2 Height (Feet): 5 Height (Inches): 5.00 Weight (Pounds): 197 Jania Choudhary MD December 13, 2019 12:20
--- NOTE | 2019-12-13 13:35 | Nephrology Progress Note ---
Assessment/Plan Problem List: (1) ROBYN (acute kidney injury) Assessment: Improved (2) Dehydration (3) UTI (urinary tract infection) (4) Sepsis (5) Hyperkalemia (6) Hypertension Assessment Renal failure most likely acute on chronic, patient medication list included Celebrex and ibuprofen Sepsis, pneumonia, suspected COVID-19 infection Hyperkalemia on presentation to the ER Anemia UTI Toxic metabolic encephalopathy with history of dementia Plan COVID-19 test negative done December 07 Check labs tomorrow potassium, phosphorus, magnesium supplement as needed Slow hydration Adjust blood pressure medication Hold nonsteroidal anti-inflammatories Avoid nephrotoxic's Monitor renal parameters and urine output Castillo catheter Kidney ultrasound initially ordered was never done ! at this time renal parameters normalized Anemia work-up Per orders Subjective ROS Limited/Unobtainable: No Constitutional: Reports: malaise Objective Objective Last 24 Hour Vital Signs Date Time Temp Pulse Resp B/P (MAP) Pulse Ox O2 Delivery O2 Flow Rate FiO2 12/13/19 11:58 97.9 92 19 132/85 (101) 97 12/13/19 08:20 94 142/86 12/13/19 08:00 98.2 94 19 142/86 (104) 96 12/13/19 07:49 Nasal Cannula 2.0 12/13/19 07:49 89 12/13/19 05:26 169/84 12/13/19 04:00 88 12/13/19 04:00 97.0 92 20 162/85 (110) 96 12/13/19 00:00 80 12/13/19 00:00 97.9 88 19 156/87 (110) 94 12/12/19 21:37 110 144/93 12/12/19 21:36 144/93 12/12/19 21:00 Nasal Cannula 2.0 12/12/19 20:00 99.5 94 19 144/93 (110) 93 12/12/19 20:00 108 12/12/19 16:00 98.1 88 20 157/89 (111) 94 Intake and Output 12/12/19 12/13/19 19:00 07:00 Intake Total 240 ml 200 ml Balance 240 ml 200 ml Intake Oral 240 ml 200 ml # Voids 2 2 No labs done today Height (Feet): 5 Height (Inches): 5.00 Weight (Pounds): 197 General Appearance: no apparent distress, lethargic Cardiovascular: tachycardia Respiratory/Chest: decreased breath sounds Abdomen: soft Brendan Elena MD December 13, 2019 13:35
--- NOTE | 2019-12-13 13:59 | NUR ---
P.T Note: late entry 929 P.T evaluation completed and tx initiated. Please refer to P.T evaluation for full report. Pt is alert, oriented to self and person but not to time and place. Pt stated and acknowledged that she is confused and does not know her current situation. Pt currently wear temporary posterior splint on the L ankle from non displaced L ankle FX ( WB status not specified ) as per admission note. Pt has limited participation in ADL/functional mobilities due to generalized weakness. Pt currently require MOD A X 1 for bed mobilities and MOD A X 1 for transfer activities using the FWW. Pt is too weak to ambulate at this time. Skilled P.T service is warranted to improve his strength , balance and endurance to facilitate mobility independence and safety. Recommend SNF for short term rehab. Pt will be NON WB on the LLE until clarified by physician.
--- NOTE | 2019-12-13 14:01 | NUR ---
CASE MANAGEMENT:REVIEW 12/13/19 SI; ENCEPHALOPATHY. UTI. FTT COVID 19 NOT DETECTED 98.2 90 18 163/84 95% ON 2L/NC IS: IV CEFEPIME Q24HRS LOPRESSOR PO Q12 IVF@50/HR HYDRALAZINE PO Q8HRS HEPARIN SQ Q12 PROTONIX PO Q12 COLACE PO TID : TELEMETRY STATUS DCP: FROM HOME
--- NOTE | 2019-12-13 14:02 | NUR ---
CASE MANAGEMENT:REVIEW 12/13/19 SI; ENCEPHALOPATHY. UTI. FTT COVID 19 NOT DETECTED 97.9 92 19 132/85 97% ON 2L/NC IS: IV CEFEPIME Q24HRS LOPRESSOR PO Q12 IVF@50/HR HYDRALAZINE PO Q8HRS HEPARIN SQ Q12 PROTONIX PO Q12 COLACE PO TID : TELEMETRY STATUS DCP: FROM HOME PLAN: PT EVAL PENDING
[2019-12-13 16:00] VITALS: BP_SYST 148; BP_SYST 169; BP_DIAS 82; BP_DIAS 94
--- NOTE | 2019-12-13 16:30 | Diagnostic Imaging Report ---
EXAM: ULTRASOUND Venous Duplex Scan [place] Leg CLINICAL HISTORY: Leg pain and edema. COMPARISON: None TECHNIQUE: Doppler examination include grayscale images obtained with and without compression, and color and spectral doppler analysis. FINDINGS: Doppler examination shows normal spontaneity, phasicity, compressibility in the bilateral lower extremities. There is no thrombus identified by grayscale. Normal color and spectral flow is identified. There is no evidence of valvular incompetency or insufficiency. IMPRESSION: UNREMARKABLE VENOUS DUPLEX.
--- NOTE | 2019-12-13 16:30 | Diagnostic Imaging Report ---
EXAM: ULTRASOUND US Renal Comp CLINICAL HISTORY: Abdominal pain. Infection. COMPARISON: None FINDINGS: Study is technically limited due to patient's body habitus and immobility. The right kidney measures 9.6 x 4.3 x 4.1 cm and the left kidney measures 10 x 5.4 x 5.4 cm. Cortical thickness and echogenicity are within normal limits. There is no hydronephrosis or stone seen bilaterally. There may be a small cyst in the upper pole of the right kidney. Urinary bladder appears unremarkable. IMPRESSION: NO OBSTRUCTIVE UROPATHY.
--- NOTE | 2019-12-13 19:11 | NUR ---
HAND-OFF: Report given to Samantha.
--- NOTE | 2019-12-13 19:15 | Cardiology Progress Note ---
Assessment/Plan Assessment/Plan 1. Extreme fatigue and SOB, with bilateral infiltration ox CXR with associated lymphopenia and elevated D-dimer, negative for COVID-19 infection. Continue ID follow up. 2. Elevated brain natriuretic peptide, 2D echocardiography shows normal LV systolic function with LVEF at 60% and mild pulmonary HTN. 3. Dyslipidemia. 4. Acute kidney injury, resolving, creat to 1.3. 5. HTN, stage II, increasing metoprolol, start amlodipine 2.5mg daily. Subjective Subjective Sinus rhythm at rate of 98. Objective Last 24 Hour Vital Signs Date Time Temp Pulse Resp B/P (MAP) Pulse Ox O2 Delivery O2 Flow Rate FiO2 12/13/19 16:00 98 148/82 (104) 12/13/19 16:00 98.7 104 20 169/94 (119) 97 12/13/19 13:47 132/85 12/13/19 11:58 97.9 92 19 132/85 (101) 97 12/13/19 11:52 105 12/13/19 08:20 94 142/86 12/13/19 08:00 98.2 94 19 142/86 (104) 96 12/13/19 07:49 Nasal Cannula 2.0 12/13/19 07:49 89 12/13/19 05:26 169/84 12/13/19 04:00 88 12/13/19 04:00 97.0 92 20 162/85 (110) 96 12/13/19 00:00 80 12/13/19 00:00 97.9 88 19 156/87 (110) 94 12/12/19 21:37 110 144/93 12/12/19 21:36 144/93 12/12/19 21:00 Nasal Cannula 2.0 12/12/19 20:00 99.5 94 19 144/93 (110) 93 12/12/19 20:00 108 Intake and Output 12/12/19 12/13/19 19:00 07:00 Intake Total 240 ml 250 ml Balance 240 ml 250 ml Intake Oral 240 ml 200 ml IV Total 50 ml # Voids 2 2 2D Echo: EF 60%, Grade I LVDD, RVSP 39 mmHg, MIld MR, Mild-Mod AR Objective HEENT: Atraumatic and normocephalic. Anicteric. Pupils are equal, round, and reactive to light and accommodation. Extraocular muscles intact. NECK: JVP less than 5 cm. No carotid bruit. Carotid upstrokes 2+ bilaterally. CARDIOVASCULAR: Normal S1, S2. Regular rate and rhythm. No murmurs, gallops, or rubs. PMI is at fourth intercostal space in the midclavicular line. LUNGS: Clear to auscultation bilaterally. ABDOMEN: Soft, nontender, and nondistended. No hepatosplenomegaly. Positive bowel sounds. EXTREMITIES: No evidence of edema, clubbing, or cyanosis. Art Mayberry MD December 13, 2019 19:15
--- NOTE | 2019-12-13 19:47 | NUR ---
NURSE NOTES: Received report from, RN. Patient is awake, alert and oriented x 2-3. Patient is on low sodium, pureed moist, thin liquids, Nephro supplement three times a day. front desk monitor is on, shows sinus rhythm, no chest pain at this time. On nasal cannula @ 2Lpm with no shortness or difficulty of breathing reported, saturating 98%. Patient is continent, using urinals. IV site is on left hand g-20 running fluid of D5 1/2 NS @ 50cc/hour that is patent and intact. Patient is bedbound, on fall and aspiration precaution. Safety measures are in placed, bed in lowest and lock position. Will continue plan of care.
[2019-12-13 20:00] VITALS: BP 155/91
[2019-12-13] MEDS: Cefepime HCl 1 GM in D5W 55 ML IVPB SCH (20:34)
[2019-12-13] MEDS ORDERED: Metoprolol Tartrate 50mg tab ORAL SCH (21:00)
--- NOTE | 2019-12-13 21:19 | Infectious Diseases Prog Note ---
Assessment/Plan Problems: (1) Pneumonia Assessment & Plan: suspect due to altered mental status , and possible aspiration , already on cefepime empiric coverage for 7 days , monitor CXR (2) UTI (urinary tract infection) Assessment & Plan: with negative culture , suspect sterile pyuria , no need to treat , continue cefepime empiric coverage for possible pneumonia , monitor blood culture (3) Dehydration Assessment & Plan: Continue IV fluid for hydration with close monitoring of electrolytes (4) Episode of generalized weakness Assessment & Plan: Suspect due to the above continue hydration and antibiotics avoid narcotics (5) Altered mental state Assessment & Plan: Suspect due to the above with dehydration and renal failure continue supportive care with fluid and antibiotics monitor closely in telemetry (6) ROBYN (acute kidney injury) Assessment & Plan: Suspect nonsteroidal anti-inflammatory medications induced with dehydration, continue hydration avoid nephrotoxic's, renal eval (7) Suspected 2019 novel coronavirus infection Assessment & Plan: with negative PCR test may remove from enhanced droplet isolation Subjective ROS Limited/Unobtainable: Yes Allergies: Coded Allergies: MORPHINE (Verified Allergy, Intermediate, HALLUCINATIONS, 03/03/13) Subjective she was awake and responsive, but confused and oriented x 1 , no fever or chills no cough or shortness of breath and no diarrhea Objective Vital Signs Last 24 Hour Vital Signs Date Time Temp Pulse Resp B/P (MAP) Pulse Ox O2 Delivery O2 Flow Rate FiO2 12/13/19 20:35 145/76 12/13/19 20:33 98 145/76 12/13/19 20:00 124 12/13/19 16:00 98 148/82 (104) 12/13/19 16:00 98.7 104 20 169/94 (119) 97 12/13/19 13:47 132/85 12/13/19 11:58 97.9 92 19 132/85 (101) 97 12/13/19 11:52 105 12/13/19 08:20 94 142/86 12/13/19 08:00 98.2 94 19 142/86 (104) 96 12/13/19 07:49 Nasal Cannula 2.0 12/13/19 07:49 89 12/13/19 05:26 169/84 12/13/19 04:00 88 12/13/19 04:00 97.0 92 20 162/85 (110) 96 12/13/19 00:00 80 12/13/19 00:00 97.9 88 19 156/87 (110) 94 12/12/19 21:37 110 144/93 12/12/19 21:36 144/93 Height (Feet): 5 Height (Inches): 5.00 Weight (Pounds): 197 General Appearance: WD/WN, no acute distress HEENT: normocephalic, atraumatic, anicteric, mucous membranes moist, PERRL Respiratory/Chest: chest wall non-tender, normal breath sounds, no respiratory distress, no accessory muscle use Cardiovascular: normal peripheral pulses, normal rate, regular rhythm, no gallop/murmur, no JVD Abdomen: normal bowel sounds, soft, non tender, no organomegaly, non distended , no mass, no scars Genitourinary: normal external genitalia Extremities: no cyanosis, no clubbing Skin: no rash, no lesions Neurologic/Psychiatric: alert, responsive Lymphatic: no neck adenopathy, no groin adenopathy Musculoskeletal: no effusion Current Medications Medications (Trade) Dose Ordered Sig/Myron Route PRN Reason Start Time Stop Time Status Last Admin Dose Admin Acetaminophen (Tylenol) 650 mg Q6H PRN ORAL Mild Pain (Pain Scale 1-3) 12/08/19 21:45 01/07/20 21:44 Acetaminophen/ Hydrocodone Bitart ([place] 5/325) 1 tab Q6H PRN ORAL Moderate Pain (Pain Scale 4-6) 12/08/19 22:00 12/15/19 21:59 Amlodipine Besylate (Norvasc) 2.5 mg DAILY ORAL 12/13/19 19:15 01/12/20 19:14 12/13/19 20:33 Cefepime HCl 1 gm/ Dextrose 55 ml @ 110 mls/hr Q24H IVPB 12/08/19 21:00 12/15/19 20:59 12/13/19 20:34 Dextrose (Dextrose 50%) 25 ml Q30M PRN IV Hypoglycemia 12/08/19 21:45 03/07/20 21:44 Dextrose (Dextrose 50%) 50 ml Q30M PRN IV Hypoglycemia 12/08/19 21:45 03/07/20 21:44 Dextrose/Sodium Chloride 1,000 ml @ 50 mls/hr Q20H IV 12/11/19 14:00 01/10/20 13:59 12/13/19 05:24 Docusate Sodium (Colace) 100 mg THREE TIMES A DAY ORAL 12/09/19 09:00 01/08/20 08:59 12/13/19 16:58 Heparin Sodium (Porcine) (Heparin 5000 units/ml) 5,000 units EVERY 12 HOURS SUBQ 12/09/19 09:00 01/23/20 08:59 12/13/19 20:40 Hydralazine HCl (Apresoline) 25 mg Q4H PRN ORAL Blood pressure over 160 systol 12/09/19 08:15 03/08/20 08:14 12/12/19 08:46 Hydralazine HCl (Apresoline) 50 mg EVERY 8 HOURS ORAL 12/11/19 14:00 03/09/20 12:14 12/13/19 13:47 Hydromorphone HCl (Dilaudid) 0.5 mg Q6H PRN IVP Severe Pain (Pain Scale 7-10) 12/08/19 22:00 12/15/19 21:59 Insulin Aspart (NovoLOG) BEFORE MEALS AND HS SUBQ 12/09/19 06:30 03/08/20 06:29 12/13/19 11:51 Lorazepam (Ativan 2mg/ml 1ml) 1 mg Q6H PRN IV For Anxiety 12/08/19 21:45 12/15/19 21:44 12/13/19 02:53 Metoprolol Tartrate (Lopressor) 50 mg Q12HR ORAL 12/13/19 21:00 03/12/20 20:59 12/13/19 20:35 Ondansetron HCl (Zofran) 4 mg Q6H PRN IVP Nausea & Vomiting 12/13/19 12:15 01/12/20 12:14 Pantoprazole (Protonix) 40 mg Q12HR ORAL 12/09/19 09:00 01/08/20 08:59 12/13/19 20:34 Reece Rocha M.D. December 13, 2019 21:18
--- NOTE | 2019-12-13 22:00 | NUR ---
NURSE NOTES: Called and left a message to Dr. Choudhary to inform him about the potassium and phosphorous. Awaiting for call back. Will continue plan of care.
[2019-12-14] VITALS (7 sets, daily range): BP systolic 123–160; BP diastolic 65–95
--- NOTE | 2019-12-14 00:30 | NUR ---
NURSE NOTES: Pt. received from KARTHIKEYAN Landers. Pt. awake AAOx1 to self, with NC 2L, no indications of respiratory distress and no complaints of pain at this time. Skin is intact with prophylactic optifoam on sacrum and right heel, left foot brace noted. IV right hand 22g intact and patent noted. Belongings verfied and signed. VS stable, pt. oriented to room and use of call light. Bed is low and locked, side rails x3 up, bed alarm active, and call light is in reach. Will continue with plan of care.
--- NOTE | 2019-12-14 00:43 | NUR ---
TRANSFER TO FLOOR: Patient transferred to 4E, per bed on standard precaution. Report given to KARTHIKEYAN Stephenson. Belongings and medications given to receiving nurse. Family and or S/O informed of transfer. Patient is in stable condition, no complaints at this time. Plan of care endorsed.
[2019-12-14] MEDS: D5 1/2NS 1,000 ML IV SCH ×2 (01:21→21:28)
[2019-12-14] MEDS ORDERED: HYDROcodone/Acetamin 5/325 tab ORAL PRN (04:00)
[2019-12-14] MEDS ORDERED: HydrALAZINE 25mg tab ORAL PRN (04:15)
[2019-12-14] MEDS: HydrALAZINE 50mg tab ORAL SCH ×3 (05:37→22:00)
[2019-12-14] MEDS: NovoLOG Insulin Flexpen SUBQ SCH ×4 (05:55→21:32)
[2019-12-14 06:31] LABS: BASOPHILS % (AUTO) 0.6 % (0.0-2.0); EOSINOPHILS % (AUTO) 0.4 % (0.0-3.0); HEMATOCRIT 29.8 % (37.0-47.0); HEMOGLOBIN 10.1 G/DL (12.0-16.0); LYMPHOCYTES % (AUTO) 12.1 % (20.0-45.0); MEAN CORPUSCULAR VOLUME 88 FL (80-99); MONOCYTES % (AUTO) 8.7 % (1.0-10.0); NEUTROPHILS % (AUTO) 78.2 % (45.0-75.0); PLATELET COUNT 214 K/UL (150-450); RED CELL DISTRIBUTION WIDTH 13.7 % (11.6-14.8); WHITE BLOOD COUNT 12.5 K/UL (4.8-10.8)
[2019-12-14 07:16] LABS: ALANINE AMINOTRANSFERASE 42 U/L (12-78); ALBUMIN 2.9 G/DL (3.4-5.0); ALBUMIN/GLOBULIN RATIO 0.7 (1.0-2.7); ALKALINE PHOSPHATASE 121 U/L (46-116); ANION GAP 11 mmol/L (5-15); ASPARTATE AMINO TRANSFERASE 36 U/L (15-37); BILIRUBIN,TOTAL 0.8 MG/DL (0.2-1.0); BLOOD UREA NITROGEN 21 mg/dL (7-18); CALCIUM 9.6 MG/DL (8.5-10.1); CARBON DIOXIDE 25 MMOL/L (21-32); CHLORIDE 108 MMOL/L (98-107); PHOSPHORUS 2.3 MG/DL (2.5-4.9); POTASSIUM 2.8 MMOL/L (3.5-5.1); SODIUM 144 MMOL/L (136-145)
--- NOTE | 2019-12-14 07:28 | NUR ---
HAND-OFF: Report given to KARTHIKEYAN Obrien and KARTHIKEYAN Aceves.
--- NOTE | 2019-12-14 07:51 | NUR ---
NURSE NOTES: received report from KARTHIKEYAN Stephenson. patient in bed. alert to name. disoriented time and place. verbally responsive. no respiratory distress on NC 2l, pain on left foot with brace d/t FX. IV on RH running D51/2ns@50. negative covid19 on 12/08/19. Aspiration and fall precaution. bed in the lowest position and locked. call light within reach. alarm on. will continue to provide plan of care.
[2019-12-14] MEDS: Metoprolol Tartrate 50mg tab ORAL SCH ×2 (08:27→21:33)
[2019-12-14] MEDS: Docusate 100mg cap ORAL SCH ×3 (08:27→17:06)
[2019-12-14] MEDS: Hydromorphone 0.5mg/0.5ml inj IVP PRN ×2 (08:28→21:36)
[2019-12-14] MEDS: Heparin 5000 units/ml inj SUBQ SCH ×2 (08:38→21:31)
[2019-12-14] MEDS: LORazepam Inj 2mg/ml 1ml IV PRN ×2 (10:50→17:01)
--- NOTE | 2019-12-14 12:16 | Pulmonology Progress Note ---
Subjective ROS Limited/Unobtainable: Yes Interval Events: None new reported Constitutional: Reports: fatigue HEENT: Repors: no symptoms Respiratory: Reports: no symptoms Cardiovascular: Reports: no symptoms Gastrointestinal/Abdominal: Reports: no symptoms Psychiatric: Reports: no symptoms Skin: Reports: no symptoms Musculoskeletal: Reports: no symptoms Allergies: Coded Allergies: MORPHINE (Verified Allergy, Intermediate, HALLUCINATIONS, 03/03/13) Objective Last 24 Hour Vital Signs Date Time Temp Pulse Resp B/P (MAP) Pulse Ox O2 Delivery O2 Flow Rate FiO2 12/14/19 09:00 Nasal Cannula 2.0 12/14/19 08:27 100 144/84 12/14/19 08:27 100 144/84 12/14/19 08:00 98.1 100 20 144/84 (104) 95 12/14/19 05:37 153/86 12/14/19 05:02 153/86 (108) 12/14/19 04:06 160/91 12/14/19 04:00 97.0 94 20 160/91 (114) 91 12/14/19 00:45 Nasal Cannula 2.0 12/14/19 00:00 98.5 97 18 148/95 (112) 95 12/13/19 22:08 175/101 12/13/19 21:00 Nasal Cannula 2.0 12/13/19 20:35 145/76 12/13/19 20:33 98 145/76 12/13/19 20:00 124 12/13/19 20:00 98.7 99 19 155/91 (112) 94 12/13/19 16:00 98 148/82 (104) 12/13/19 16:00 98.7 104 20 169/94 (119) 97 12/13/19 13:47 132/85 Intake and Output 12/13/19 12/14/19 19:00 07:00 Intake Total 600 ml 525 ml Balance 600 ml 525 ml Intake Oral 300 ml IV Total 600 ml 225 ml # Voids 3 1 # Bowel Movements 2 General Appearance: no acute distress HEENT: normocephalic Respiratory: chest wall non-tender Cardiovascular: normal peripheral pulses Abdomen: normal bowel sounds Laboratory Tests 12/14/19 05:50: White Blood Count 12.5H, Red Blood Count 3.40L, Hemoglobin 10.1L, Hematocrit 29.8L, Mean Corpuscular Volume 88, Mean Corpuscular Hemoglobin 29.8, Mean Corpuscular Hemoglobin Concent 34.0, Red Cell Distribution Width 13.7, Platelet Count 214, Mean Platelet Volume 7.8, Neutrophils (%) (Auto) 78.2H, Lymphocytes ( %) (Auto) 12.1L, Monocytes (%) (Auto) 8.7, Eosinophils (%) (Auto) 0.4, Basophils (%) (Auto) 0.6, Sodium Level 144, Potassium Level 2.8L, Chloride Level 108H, Carbon Dioxide Level 25, Anion Gap 11, Blood Urea Nitrogen 21H, Creatinine 1.0, Estimat Glomerular Filtration Rate 53.9, Glucose Level 110H, Uric Acid 3.7, Calcium Level 9.6, Phosphorus Level 2.3L, Magnesium Level 1.8, Total Bilirubin 0.8, Aspartate Amino Transf (AST/SGOT) 36, Alanine Aminotransferase (ALT/SGPT) 42, Alkaline Phosphatase 121H, C-Reactive Protein, Quantitative 12.0H, Pro-B-Type Natriuretic Peptide 7454H, Total Protein 6.8, Albumin 2.9L, Globulin 3.9, Albumin/Globulin Ratio 0.7L Current Medications Medications (Trade) Dose Ordered Sig/Myron Route PRN Reason Start Time Stop Time Status Last Admin Dose Admin Acetaminophen (Tylenol) 650 mg Q6H PRN ORAL Mild Pain (Pain Scale 1-3) 12/14/19 03:45 01/07/20 21:44 Acetaminophen/ Hydrocodone Bitart ([place] 5/325) 1 tab Q6H PRN ORAL Moderate Pain (Pain Scale 4-6) 12/14/19 04:00 12/15/19 21:59 12/14/19 05:38 Amlodipine Besylate (Norvasc) 2.5 mg DAILY ORAL 12/14/19 09:00 01/12/20 19:14 12/14/19 08:27 Cefepime HCl 1 gm/ Dextrose 55 ml @ 110 mls/hr Q24H IVPB 12/14/19 21:00 12/15/19 20:59 Dextrose (Dextrose 50%) 25 ml Q30M PRN IV Hypoglycemia 12/14/19 01:15 03/07/20 21:44 Dextrose (Dextrose 50%) 50 ml Q30M PRN IV Hypoglycemia 12/14/19 01:15 03/07/20 21:44 Dextrose/Sodium Chloride 1,000 ml @ 50 mls/hr Q20H IV 12/14/19 00:45 01/10/20 13:59 12/14/19 01:21 Docusate Sodium (Colace) 100 mg THREE TIMES A DAY ORAL 12/14/19 09:00 01/08/20 08:59 12/14/19 08:27 Heparin Sodium (Porcine) (Heparin 5000 units/ml) 5,000 units EVERY 12 HOURS SUBQ 12/14/19 09:00 01/23/20 08:59 12/14/19 08:38 Hydralazine HCl (Apresoline) 25 mg Q4H PRN ORAL Blood pressure over 160 systol 12/14/19 04:15 03/08/20 08:14 12/14/19 04:06 Hydralazine HCl (Apresoline) 50 mg EVERY 8 HOURS ORAL 12/14/19 06:00 03/09/20 12:14 12/14/19 05:37 Hydromorphone HCl (Dilaudid) 0.5 mg Q6H PRN IVP Severe Pain (Pain Scale 7-10) 12/14/19 04:00 12/15/19 21:59 12/14/19 08:28 Insulin Aspart (NovoLOG) BEFORE MEALS AND HS SUBQ 12/14/19 06:30 03/08/20 06:29 Lorazepam (Ativan 2mg/ml 1ml) 1 mg Q6H PRN IV For Anxiety 12/14/19 03:45 12/15/19 21:44 12/14/19 10:50 Metoprolol Tartrate (Lopressor) 50 mg Q12HR ORAL 12/14/19 09:00 03/12/20 20:59 12/14/19 08:27 Ondansetron HCl (Zofran) 4 mg Q6H PRN IVP Nausea & Vomiting 12/14/19 06:15 01/12/20 12:14 Pantoprazole (Protonix) 40 mg Q12HR ORAL 12/14/19 09:00 01/08/20 08:59 12/14/19 08:26 Potassium Chloride (K-Dur) 40 meq TWICE A DAY ORAL 12/14/19 09:00 03/13/20 08:59 12/14/19 10:05 Assessment/Plan Assessment/Plan IMPRESSION: 1. Failure to thrive 2. Dementia. 3. Possible UTI. 4. Atelectasis. DISCUSSION: Continue antibiotics. I will follow carefully. Currently saturating well on low-flow oxygen. Taina Ledesma Omar Syed MD December 14, 2019 12:16
--- NOTE | 2019-12-14 12:27 | General Progress Note ---
Assessment/Plan Status: stable Assessment/Plan: S: limted verbal communication O: agitated. poor historian. seems comfortable. PHYSICAL EXAMINATION:HEAD AND NECK: Atraumatic and normocephalic. CHEST: Clear to auscultation.HEART: S1, S2. Regular rate and rhythm. ABDOMEN: Soft. No organomegaly.MUSCULOSKELETAL: Positive for the spontaneous movements of upper extremity. Limited evaluation for the lower extremity as the patient is moving leg and is following commands. LABORATORY Medication AND DIAGNOSTIC DATA: dated December 12 reviewed ASSESSMENT: 1. Acute metabolic encephalopathy. 2. UTI. 3. Pulmonary infiltrations. Possibility of COVID. 4. Chronic encephalomalacia. 5. Psychiatric disorder. 6. Chronic pain. 7. GI and DVT prophylaxis. PLAN OF CARE: start PO bp medication current empirical abx I spoke to her daughter on December 08, at appx 5 PM and on December 12 at 1215 hours. I discussed overal medical cnd with her Initiate and will titrate Hydralazin to optimize BP PT / OT Advance feeding as tolerated DC home with C once medically stable. Subjective Allergies: Coded Allergies: MORPHINE (Verified Allergy, Intermediate, HALLUCINATIONS, 03/03/13) Objective Last 24 Hour Vital Signs Date Time Temp Pulse Resp B/P (MAP) Pulse Ox O2 Delivery O2 Flow Rate FiO2 12/14/19 12:00 98.5 81 18 142/95 (111) 92 12/14/19 09:00 Nasal Cannula 2.0 12/14/19 08:27 100 144/84 12/14/19 08:27 100 144/84 12/14/19 08:00 98.1 100 20 144/84 (104) 95 12/14/19 05:37 153/86 12/14/19 05:02 153/86 (108) 12/14/19 04:06 160/91 12/14/19 04:00 97.0 94 20 160/91 (114) 91 12/14/19 00:45 Nasal Cannula 2.0 12/14/19 00:00 98.5 97 18 148/95 (112) 95 12/13/19 22:08 175/101 12/13/19 21:00 Nasal Cannula 2.0 12/13/19 20:35 145/76 12/13/19 20:33 98 145/76 12/13/19 20:00 124 12/13/19 20:00 98.7 99 19 155/91 (112) 94 12/13/19 16:00 98 148/82 (104) 12/13/19 16:00 98.7 104 20 169/94 (119) 97 12/13/19 13:47 132/85 Intake and Output 12/13/19 12/14/19 19:00 07:00 Intake Total 600 ml 525 ml Balance 600 ml 525 ml Intake Oral 300 ml IV Total 600 ml 225 ml # Voids 3 1 # Bowel Movements 2 Laboratory Tests 12/14/19 05:50: White Blood Count 12.5H, Red Blood Count 3.40L, Hemoglobin 10.1L, Hematocrit 29.8L, Mean Corpuscular Volume 88, Mean Corpuscular Hemoglobin 29.8, Mean Corpuscular Hemoglobin Concent 34.0, Red Cell Distribution Width 13.7, Platelet Count 214, Mean Platelet Volume 7.8, Neutrophils (%) (Auto) 78.2H, Lymphocytes ( %) (Auto) 12.1L, Monocytes (%) (Auto) 8.7, Eosinophils (%) (Auto) 0.4, Basophils (%) (Auto) 0.6, Sodium Level 144, Potassium Level 2.8L, Chloride Level 108H, Carbon Dioxide Level 25, Anion Gap 11, Blood Urea Nitrogen 21H, Creatinine 1.0, Estimat Glomerular Filtration Rate 53.9, Glucose Level 110H, Uric Acid 3.7, Calcium Level 9.6, Phosphorus Level 2.3L, Magnesium Level 1.8, Total Bilirubin 0.8, Aspartate Amino Transf (AST/SGOT) 36, Alanine Aminotransferase (ALT/SGPT) 42, Alkaline Phosphatase 121H, C-Reactive Protein, Quantitative 12.0H, Pro-B-Type Natriuretic Peptide 7454H, Total Protein 6.8, Albumin 2.9L, Globulin 3.9, Albumin/Globulin Ratio 0.7L Height (Feet): 5 Height (Inches): 5.00 Weight (Pounds): 197 Jania Choudhary MD December 14, 2019 12:27
--- NOTE | 2019-12-14 13:12 | Nephrology Progress Note ---
Assessment/Plan Problem List: (1) ROBYN (acute kidney injury) Assessment: Improved (2) Dehydration (3) UTI (urinary tract infection) (4) Sepsis (5) Hyperkalemia (6) Hypertension Assessment Renal failure most likely acute on chronic, patient medication list included Celebrex and ibuprofen Sepsis, pneumonia, suspected COVID-19 infection Hyperkalemia on presentation to the ER Anemia UTI Toxic metabolic encephalopathy with history of dementia Plan COVID-19 test negative done December 07 Potassium supplement today potassium, phosphorus, magnesium supplement as needed Slow hydration Adjust blood pressure medication Hold nonsteroidal anti-inflammatories Avoid nephrotoxic's Monitor renal parameters and urine output Castillo catheter Kidney ultrasound initially ordered was never done ! at this time renal parameters normalized Anemia work-up Per orders Subjective ROS Limited/Unobtainable: No Constitutional: Reports: malaise, weakness Objective Objective Last 24 Hour Vital Signs Date Time Temp Pulse Resp B/P (MAP) Pulse Ox O2 Delivery O2 Flow Rate FiO2 12/14/19 12:00 98.5 81 18 142/95 (111) 92 12/14/19 09:00 Nasal Cannula 2.0 12/14/19 08:27 100 144/84 12/14/19 08:27 100 144/84 12/14/19 08:00 98.1 100 20 144/84 (104) 95 12/14/19 05:37 153/86 12/14/19 05:02 153/86 (108) 12/14/19 04:06 160/91 12/14/19 04:00 97.0 94 20 160/91 (114) 91 12/14/19 00:45 Nasal Cannula 2.0 12/14/19 00:00 98.5 97 18 148/95 (112) 95 12/13/19 22:08 175/101 12/13/19 21:00 Nasal Cannula 2.0 12/13/19 20:35 145/76 12/13/19 20:33 98 145/76 12/13/19 20:00 124 12/13/19 20:00 98.7 99 19 155/91 (112) 94 12/13/19 16:00 98 148/82 (104) 12/13/19 16:00 98.7 104 20 169/94 (119) 97 12/13/19 13:47 132/85 Intake and Output 12/13/19 12/14/19 19:00 07:00 Intake Total 600 ml 525 ml Balance 600 ml 525 ml Intake Oral 300 ml IV Total 600 ml 225 ml # Voids 3 1 # Bowel Movements 2 Laboratory Tests 12/14/19 05:50: White Blood Count 12.5H, Red Blood Count 3.40L, Hemoglobin 10.1L, Hematocrit 29.8L, Mean Corpuscular Volume 88, Mean Corpuscular Hemoglobin 29.8, Mean Corpuscular Hemoglobin Concent 34.0, Red Cell Distribution Width 13.7, Platelet Count 214, Mean Platelet Volume 7.8, Neutrophils (%) (Auto) 78.2H, Lymphocytes ( %) (Auto) 12.1L, Monocytes (%) (Auto) 8.7, Eosinophils (%) (Auto) 0.4, Basophils (%) (Auto) 0.6, Sodium Level 144, Potassium Level 2.8L, Chloride Level 108H, Carbon Dioxide Level 25, Anion Gap 11, Blood Urea Nitrogen 21H, Creatinine 1.0, Estimat Glomerular Filtration Rate 53.9, Glucose Level 110H, Uric Acid 3.7, Calcium Level 9.6, Phosphorus Level 2.3L, Magnesium Level 1.8, Total Bilirubin 0.8, Aspartate Amino Transf (AST/SGOT) 36, Alanine Aminotransferase (ALT/SGPT) 42, Alkaline Phosphatase 121H, C-Reactive Protein, Quantitative 12.0H, Pro-B-Type Natriuretic Peptide 7454H, Total Protein 6.8, Albumin 2.9L, Globulin 3.9, Albumin/Globulin Ratio 0.7L Height (Feet): 5 Height (Inches): 5.00 Weight (Pounds): 197 General Appearance: no apparent distress, lethargic Cardiovascular: normal rate Respiratory/Chest: decreased breath sounds Abdomen: soft Brendan Elena MD December 14, 2019 13:12
--- NOTE | 2019-12-14 19:25 | NUR ---
NURSE NOTES: Received report from KARTHIKEYAN Obrien. Pt sleeping in bed, on NC 2L. No labored breathing. Left foot with brace d/t FX noted. IV site intact and running IVF. Aspiration and fall precaution maintained. Bed in the lowest position and locked, alarm on, side rails up, call light within reach. Will continue to provide plan of care.
--- NOTE | 2019-12-14 19:43 | NUR ---
HAND-OFF: Report given to KARTHIKEYAN Camargo.
--- NOTE | 2019-12-14 20:25 | Infectious Diseases Prog Note ---
Assessment/Plan Problems: (1) Pneumonia Assessment & Plan: suspect due to altered mental status , and possible aspiration , already on cefepime empiric coverage for 7 days , monitor CXR (2) UTI (urinary tract infection) Assessment & Plan: with negative culture , suspect sterile pyuria , no need to treat , continue cefepime empiric coverage for possible pneumonia , monitor blood culture (3) Dehydration Assessment & Plan: Continue IV fluid for hydration with close monitoring of electrolytes (4) Episode of generalized weakness Assessment & Plan: Suspect due to the above continue hydration and antibiotics avoid narcotics (5) Altered mental state Assessment & Plan: Suspect due to the above with dehydration and renal failure continue supportive care with fluid and antibiotics monitor closely in telemetry (6) ROBYN (acute kidney injury) Assessment & Plan: Suspect nonsteroidal anti-inflammatory medications induced with dehydration, continue hydration avoid nephrotoxic's, renal eval (7) Suspected 2019 novel coronavirus infection Assessment & Plan: with negative PCR test may remove from enhanced droplet isolation Subjective ROS Limited/Unobtainable: Yes Allergies: Coded Allergies: MORPHINE (Verified Allergy, Intermediate, HALLUCINATIONS, 03/03/13) Subjective she was awake and responsive, but confused and oriented x 1 , no fever or chills no cough or shortness of breath and no diarrhea Objective Vital Signs Last 24 Hour Vital Signs Date Time Temp Pulse Resp B/P (MAP) Pulse Ox O2 Delivery O2 Flow Rate FiO2 12/14/19 16:00 98.9 109 20 156/77 (103) 93 12/14/19 13:53 118/59 12/14/19 12:00 98.5 81 18 142/95 (111) 92 12/14/19 09:00 Nasal Cannula 2.0 12/14/19 08:27 100 144/84 12/14/19 08:27 100 144/84 12/14/19 08:00 98.1 100 20 144/84 (104) 95 12/14/19 05:37 153/86 12/14/19 05:02 153/86 (108) 12/14/19 04:06 160/91 12/14/19 04:00 97.0 94 20 160/91 (114) 91 12/14/19 00:45 Nasal Cannula 2.0 12/14/19 00:00 98.5 97 18 148/95 (112) 95 12/13/19 22:08 175/101 12/13/19 21:00 Nasal Cannula 2.0 12/13/19 20:35 145/76 12/13/19 20:33 98 145/76 Height (Feet): 5 Height (Inches): 5.00 Weight (Pounds): 197 General Appearance: WD/WN, no acute distress HEENT: normocephalic, atraumatic, anicteric, mucous membranes moist, PERRL Respiratory/Chest: chest wall non-tender, lungs clear, normal breath sounds, no respiratory distress, no accessory muscle use, pleural rub Cardiovascular: normal peripheral pulses, normal rate, regular rhythm, no gallop/murmur, no JVD Abdomen: normal bowel sounds, soft, non tender, no organomegaly, non distended , no mass, no scars Genitourinary: normal external genitalia Extremities: no cyanosis, no clubbing Skin: no rash, no lesions Neurologic/Psychiatric: alert, responsive Lymphatic: no neck adenopathy, no groin adenopathy Musculoskeletal: normal muscle bulk, no effusion Laboratory Tests Test 12/14/19 05:50 White Blood Count 12.5 K/UL (4.8-10.8) H Red Blood Count 3.40 M/UL (4.20-5.40) L Hemoglobin 10.1 G/DL (12.0-16.0) L Hematocrit 29.8 % (37.0-47.0) L Mean Corpuscular Volume 88 FL (80-99) Mean Corpuscular Hemoglobin 29.8 PG (27.0-31.0) Mean Corpuscular Hemoglobin Concent 34.0 G/DL (32.0-36.0) Red Cell Distribution Width 13.7 % (11.6-14.8) Platelet Count 214 K/UL (150-450) Mean Platelet Volume 7.8 FL (6.5-10.1) Neutrophils (%) (Auto) 78.2 % (45.0-75.0) H Lymphocytes (%) (Auto) 12.1 % (20.0-45.0) L Monocytes (%) (Auto) 8.7 % (1.0-10.0) Eosinophils (%) (Auto) 0.4 % (0.0-3.0) Basophils (%) (Auto) 0.6 % (0.0-2.0) Sodium Level 144 MMOL/L (136-145) Potassium Level 2.8 MMOL/L (3.5-5.1) L Chloride Level 108 MMOL/L (98-107) H Carbon Dioxide Level 25 MMOL/L (21-32) Anion Gap 11 mmol/L (5-15) Blood Urea Nitrogen 21 mg/dL (7-18) H Creatinine 1.0 MG/DL (0.55-1.30) Estimat Glomerular Filtration Rate 53.9 mL/min (>60) Glucose Level 110 MG/DL (74-106) H Uric Acid 3.7 MG/DL (2.6-7.2) Calcium Level 9.6 MG/DL (8.5-10.1) Phosphorus Level 2.3 MG/DL (2.5-4.9) L Magnesium Level 1.8 MG/DL (1.8-2.4) Total Bilirubin 0.8 MG/DL (0.2-1.0) Aspartate Amino Transf (AST/SGOT) 36 U/L (15-37) Alanine Aminotransferase (ALT/SGPT) 42 U/L (12-78) Alkaline Phosphatase 121 U/L (46-116) H C-Reactive Protein, Quantitative 12.0 mg/dL (0.00-0.90) H Pro-B-Type Natriuretic Peptide 7454 pg/mL (0-125) H Total Protein 6.8 G/DL (6.4-8.2) Albumin 2.9 G/DL (3.4-5.0) L Globulin 3.9 g/dL Albumin/Globulin Ratio 0.7 (1.0-2.7) L Current Medications Medications (Trade) Dose Ordered Sig/Myron Route PRN Reason Start Time Stop Time Status Last Admin Dose Admin Acetaminophen (Tylenol) 650 mg Q6H PRN ORAL Mild Pain (Pain Scale 1-3) 12/14/19 03:45 01/07/20 21:44 Acetaminophen/ Hydrocodone Bitart ([place] 5/325) 1 tab Q6H PRN ORAL Moderate Pain (Pain Scale 4-6) 12/14/19 04:00 12/15/19 21:59 12/14/19 05:38 Amlodipine Besylate (Norvasc) 2.5 mg DAILY ORAL 12/14/19 09:00 01/12/20 19:14 12/14/19 08:27 Cefepime HCl 1 gm/ Dextrose 55 ml @ 110 mls/hr Q24H IVPB 12/14/19 21:00 12/15/19 20:59 Dextrose (Dextrose 50%) 25 ml Q30M PRN IV Hypoglycemia 12/14/19 01:15 03/07/20 21:44 Dextrose (Dextrose 50%) 50 ml Q30M PRN IV Hypoglycemia 12/14/19 01:15 03/07/20 21:44 Dextrose/Sodium Chloride 1,000 ml @ 50 mls/hr Q20H IV 12/14/19 00:45 01/10/20 13:59 12/14/19 01:21 Docusate Sodium (Colace) 100 mg THREE TIMES A DAY ORAL 12/14/19 09:00 01/08/20 08:59 12/14/19 17:06 Heparin Sodium (Porcine) (Heparin 5000 units/ml) 5,000 units EVERY 12 HOURS SUBQ 12/14/19 09:00 01/23/20 08:59 12/14/19 08:38 Hydralazine HCl (Apresoline) 25 mg Q4H PRN ORAL Blood pressure over 160 systol 12/14/19 04:15 03/08/20 08:14 12/14/19 04:06 Hydralazine HCl (Apresoline) 50 mg EVERY 8 HOURS ORAL 12/14/19 06:00 03/09/20 12:14 12/14/19 05:37 Hydromorphone HCl (Dilaudid) 0.5 mg Q6H PRN IVP Severe Pain (Pain Scale 7-10) 12/14/19 04:00 12/15/19 21:59 12/14/19 08:28 Insulin Aspart (NovoLOG) BEFORE MEALS AND HS SUBQ 12/14/19 06:30 03/08/20 06:29 Lorazepam (Ativan 2mg/ml 1ml) 1 mg Q6H PRN IV For Anxiety 12/14/19 03:45 12/15/19 21:44 12/14/19 17:01 Metoprolol Tartrate (Lopressor) 50 mg Q12HR ORAL 12/14/19 09:00 03/12/20 20:59 12/14/19 08:27 Ondansetron HCl (Zofran) 4 mg Q6H PRN IVP Nausea & Vomiting 12/14/19 06:15 01/12/20 12:14 Pantoprazole (Protonix) 40 mg Q12HR ORAL 12/14/19 09:00 01/08/20 08:59 12/14/19 08:26 Potassium Chloride (K-Dur) 40 meq TWICE A DAY ORAL 12/14/19 09:00 03/13/20 08:59 12/14/19 17:07 Reece Rocha M.D. December 14, 2019 20:25
[2019-12-14] MEDS ORDERED: Cefepime HCl 1 GM in D5W 55 ML IVPB SCH (21:00)
--- NOTE | 2019-12-14 23:46 | Cardiology Progress Note ---
Assessment/Plan Assessment/Plan 1. Extreme fatigue and SOB, with bilateral infiltration ox CXR with associated lymphopenia and elevated D-dimer, negative for COVID-19 infection. Continue ID follow up. 2. Elevated brain natriuretic peptide, 2D echocardiography shows normal LV systolic function with LVEF at 60% and mild pulmonary HTN. 3. Dyslipidemia. 4. Acute kidney injury, resolved. 5. HTN, well controlled, optimize metoprolol and amlodipine. Subjective Subjective Transferred to the med-surg unit. No cardiac symptoms are reported. Objective Last 24 Hour Vital Signs Date Time Temp Pulse Resp B/P (MAP) Pulse Ox O2 Delivery O2 Flow Rate FiO2 12/14/19 21:33 100 123/65 12/14/19 21:00 Nasal Cannula 2.0 12/14/19 20:00 98.4 100 19 123/65 (84) 95 12/14/19 16:00 98.9 109 20 156/77 (103) 93 12/14/19 13:53 118/59 12/14/19 12:00 98.5 81 18 142/95 (111) 92 12/14/19 09:00 Nasal Cannula 2.0 12/14/19 08:27 100 144/84 12/14/19 08:27 100 144/84 12/14/19 08:00 98.1 100 20 144/84 (104) 95 12/14/19 05:37 153/86 12/14/19 05:02 153/86 (108) 12/14/19 04:06 160/91 12/14/19 04:00 97.0 94 20 160/91 (114) 91 12/14/19 00:45 Nasal Cannula 2.0 12/14/19 00:00 98.5 97 18 148/95 (112) 95 Intake and Output 12/13/19 12/14/19 19:00 07:00 Intake Total 600 ml 575 ml Balance 600 ml 575 ml Intake Oral 300 ml IV Total 600 ml 275 ml # Voids 3 1 # Bowel Movements 2 2D Echo: EF 60%, Grade I LVDD, RVSP 39 mmHg, MIld MR, Mild-Mod AR Laboratory Tests Test 12/14/19 05:50 White Blood Count 12.5 K/UL (4.8-10.8) H Red Blood Count 3.40 M/UL (4.20-5.40) L Hemoglobin 10.1 G/DL (12.0-16.0) L Hematocrit 29.8 % (37.0-47.0) L Mean Corpuscular Volume 88 FL (80-99) Mean Corpuscular Hemoglobin 29.8 PG (27.0-31.0) Mean Corpuscular Hemoglobin Concent 34.0 G/DL (32.0-36.0) Red Cell Distribution Width 13.7 % (11.6-14.8) Platelet Count 214 K/UL (150-450) Mean Platelet Volume 7.8 FL (6.5-10.1) Neutrophils (%) (Auto) 78.2 % (45.0-75.0) H Lymphocytes (%) (Auto) 12.1 % (20.0-45.0) L Monocytes (%) (Auto) 8.7 % (1.0-10.0) Eosinophils (%) (Auto) 0.4 % (0.0-3.0) Basophils (%) (Auto) 0.6 % (0.0-2.0) Sodium Level 144 MMOL/L (136-145) Potassium Level 2.8 MMOL/L (3.5-5.1) L Chloride Level 108 MMOL/L (98-107) H Carbon Dioxide Level 25 MMOL/L (21-32) Anion Gap 11 mmol/L (5-15) Blood Urea Nitrogen 21 mg/dL (7-18) H Creatinine 1.0 MG/DL (0.55-1.30) Estimat Glomerular Filtration Rate 53.9 mL/min (>60) Glucose Level 110 MG/DL (74-106) H Uric Acid 3.7 MG/DL (2.6-7.2) Calcium Level 9.6 MG/DL (8.5-10.1) Phosphorus Level 2.3 MG/DL (2.5-4.9) L Magnesium Level 1.8 MG/DL (1.8-2.4) Total Bilirubin 0.8 MG/DL (0.2-1.0) Aspartate Amino Transf (AST/SGOT) 36 U/L (15-37) Alanine Aminotransferase (ALT/SGPT) 42 U/L (12-78) Alkaline Phosphatase 121 U/L (46-116) H C-Reactive Protein, Quantitative 12.0 mg/dL (0.00-0.90) H Pro-B-Type Natriuretic Peptide 7454 pg/mL (0-125) H Total Protein 6.8 G/DL (6.4-8.2) Albumin 2.9 G/DL (3.4-5.0) L Globulin 3.9 g/dL Albumin/Globulin Ratio 0.7 (1.0-2.7) L Objective HEENT: Atraumatic and normocephalic. Anicteric. Pupils are equal, round, and reactive to light and accommodation. Extraocular muscles intact. NECK: JVP less than 5 cm. No carotid bruit. Carotid upstrokes 2+ bilaterally. CARDIOVASCULAR: Normal S1, S2. Regular rate and rhythm. No murmurs, gallops, or rubs. PMI is at fourth intercostal space in the midclavicular line. LUNGS: Clear to auscultation bilaterally. ABDOMEN: Soft, nontender, and nondistended. No hepatosplenomegaly. Positive bowel sounds. EXTREMITIES: No evidence of edema, clubbing, or cyanosis. Art Mayberry MD December 14, 2019 23:46
[2019-12-15] VITALS: BP 118/68
[2019-12-15] MEDS: LORazepam Inj 2mg/ml 1ml IV PRN ×2 (01:39→17:11)
[2019-12-15 04:00] VITALS: BP 124/67
[2019-12-15] MEDS: NovoLOG Insulin Flexpen SUBQ SCH ×4 (05:27→20:13)
[2019-12-15] MEDS: HydrALAZINE 50mg tab ORAL SCH ×3 (05:30→21:42)
--- NOTE | 2019-12-15 06:55 | NUR ---
NURSE NOTES: Pt has cough and left message Dr. Choudhary to get an order. Awaiting for call back.
--- NOTE | 2019-12-15 07:14 | NUR ---
HAND-OFF: Report given to KARTHIKEYAN Raza.
--- NOTE | 2019-12-15 07:25 | NUR ---
NURSE NOTES: Received patient in bed. Awake, A/O x1. On 2 lpm via NC. Patient denies pain at this time. IV in the right hand, infusing IVF well. Left foor brace in place. Patient is a high fall risk, CN and SUPERVISORY IT [employer]IST made aware. Bed placed at the lowest position, bed alarm on high sensitivity, side rails up x3. Yellow socks in place, yellow gown on. Call light placed within reach, patient returned demonstration with proper use of call light. Patient placed in room close to the nurse's station for safety.
[2019-12-15 08:00] VITALS: BP 158/95
--- NOTE | 2019-12-15 08:52 | Pulmonology Progress Note ---
Subjective ROS Limited/Unobtainable: Yes Interval Events: None new reported Constitutional: Reports: fatigue HEENT: Repors: no symptoms Respiratory: Reports: no symptoms Cardiovascular: Reports: no symptoms Gastrointestinal/Abdominal: Reports: no symptoms Psychiatric: Reports: no symptoms Skin: Reports: no symptoms Musculoskeletal: Reports: no symptoms Allergies: Coded Allergies: MORPHINE (Verified Allergy, Intermediate, HALLUCINATIONS, 03/03/13) Objective Last 24 Hour Vital Signs Date Time Temp Pulse Resp B/P (MAP) Pulse Ox O2 Delivery O2 Flow Rate FiO2 12/15/19 08:00 97.7 89 20 158/95 (116) 95 12/15/19 05:30 124/67 12/15/19 04:00 97.6 98 20 124/67 (86) 98 12/15/19 00:00 98.0 101 19 118/68 (85) 96 12/14/19 22:00 118/68 12/14/19 21:33 100 123/65 12/14/19 21:00 Nasal Cannula 2.0 12/14/19 20:00 98.4 100 19 123/65 (84) 95 12/14/19 16:00 98.9 109 20 156/77 (103) 93 12/14/19 13:53 118/59 12/14/19 12:00 98.5 81 18 142/95 (111) 92 12/14/19 09:00 Nasal Cannula 2.0 Intake and Output 12/14/19 12/15/19 19:00 07:00 Intake Total 1243 ml 450 ml Balance 1243 ml 450 ml Intake Oral 240 ml IV Total 1003 ml 450 ml # Voids 2 1 General Appearance: no acute distress HEENT: normocephalic Respiratory: chest wall non-tender Cardiovascular: normal peripheral pulses Abdomen: normal bowel sounds Current Medications Medications (Trade) Dose Ordered Sig/Myron Route PRN Reason Start Time Stop Time Status Last Admin Dose Admin Acetaminophen (Tylenol) 650 mg Q6H PRN ORAL Mild Pain (Pain Scale 1-3) 12/14/19 03:45 01/07/20 21:44 Acetaminophen/ Hydrocodone Bitart ([place] 5/325) 1 tab Q6H PRN ORAL Moderate Pain (Pain Scale 4-6) 12/14/19 04:00 12/15/19 21:59 12/14/19 05:38 Amlodipine Besylate (Norvasc) 5 mg DAILY ORAL 12/15/19 09:00 01/14/20 08:59 Cefepime HCl 1 gm/ Dextrose 55 ml @ 110 mls/hr Q24H IVPB 12/14/19 21:00 12/15/19 20:59 12/14/19 21:29 Dextrose (Dextrose 50%) 25 ml Q30M PRN IV Hypoglycemia 12/14/19 01:15 03/07/20 21:44 Dextrose (Dextrose 50%) 50 ml Q30M PRN IV Hypoglycemia 12/14/19 01:15 03/07/20 21:44 Dextrose/Sodium Chloride 1,000 ml @ 50 mls/hr Q20H IV 12/14/19 00:45 01/10/20 13:59 12/14/19 21:28 Docusate Sodium (Colace) 100 mg THREE TIMES A DAY ORAL 12/14/19 09:00 01/08/20 08:59 12/14/19 17:06 Heparin Sodium (Porcine) (Heparin 5000 units/ml) 5,000 units EVERY 12 HOURS SUBQ 12/14/19 09:00 01/23/20 08:59 12/14/19 21:31 Hydralazine HCl (Apresoline) 25 mg Q4H PRN ORAL Blood pressure over 160 systol 12/14/19 04:15 03/08/20 08:14 12/14/19 04:06 Hydralazine HCl (Apresoline) 50 mg EVERY 8 HOURS ORAL 12/14/19 06:00 03/09/20 12:14 12/15/19 05:30 Hydromorphone HCl (Dilaudid) 0.5 mg Q6H PRN IVP Severe Pain (Pain Scale 7-10) 12/14/19 04:00 12/15/19 21:59 12/14/19 21:36 Insulin Aspart (NovoLOG) BEFORE MEALS AND HS SUBQ 12/14/19 06:30 03/08/20 06:29 12/14/19 21:32 Lorazepam (Ativan 2mg/ml 1ml) 1 mg Q6H PRN IV For Anxiety 12/14/19 03:45 12/15/19 21:44 12/15/19 01:39 Metoprolol Tartrate (Lopressor) 100 mg Q12HR ORAL 12/15/19 09:00 03/14/20 08:59 Ondansetron HCl (Zofran) 4 mg Q6H PRN IVP Nausea & Vomiting 12/14/19 06:15 01/12/20 12:14 Pantoprazole (Protonix) 40 mg Q12HR ORAL 12/14/19 09:00 01/08/20 08:59 12/14/19 21:29 Potassium Chloride (K-Dur) 40 meq TWICE A DAY ORAL 12/14/19 09:00 03/13/20 08:59 12/14/19 17:07 Assessment/Plan Assessment/Plan IMPRESSION: 1. Failure to thrive 2. Dementia. 3. Possible UTI. 4. Atelectasis. DISCUSSION: Continue antibiotics. I will follow carefully. Currently saturating well on low-flow oxygen. Taina Ledesma Omar Syed MD December 15, 2019 08:52
[2019-12-15] MEDS: Docusate 100mg cap ORAL SCH ×3 (09:00→17:11)
[2019-12-15] MEDS: Heparin 5000 units/ml inj SUBQ SCH ×2 (09:00→20:14)
[2019-12-15] MEDS: Metoprolol Tartrate 100mg tab ORAL SCH ×2 (09:00→20:20)
--- NOTE | 2019-12-15 11:22 | Nephrology Progress Note ---
Assessment/Plan Problem List: (1) ROBYN (acute kidney injury) Assessment: Improved (2) Dehydration (3) UTI (urinary tract infection) (4) Sepsis (5) Hyperkalemia (6) Hypertension Assessment Renal failure most likely acute on chronic, patient medication list included Celebrex and ibuprofen Sepsis, pneumonia, suspected COVID-19 infection Hyperkalemia on presentation to the ER Anemia UTI Toxic metabolic encephalopathy with history of dementia Plan COVID-19 test negative done December 07 Potassium supplement as needed Check labs for tomorrow potassium, phosphorus, magnesium supplement as needed Slow hydration Adjust blood pressure medication Hold nonsteroidal anti-inflammatories Avoid nephrotoxic's Monitor renal parameters and urine output Castillo catheter Kidney ultrasound initially ordered was never done ! at this time renal parameters normalized Anemia work-up Per orders Subjective ROS Limited/Unobtainable: No Constitutional: Reports: malaise Objective Objective Last 24 Hour Vital Signs Date Time Temp Pulse Resp B/P (MAP) Pulse Ox O2 Delivery O2 Flow Rate FiO2 12/15/19 09:00 89 158/95 12/15/19 09:00 89 158/95 12/15/19 09:00 Nasal Cannula 2.0 12/15/19 08:00 97.7 89 20 158/95 (116) 95 12/15/19 05:30 124/67 12/15/19 04:00 97.6 98 20 124/67 (86) 98 12/15/19 00:00 98.0 101 19 118/68 (85) 96 12/14/19 22:00 118/68 12/14/19 21:33 100 123/65 12/14/19 21:00 Nasal Cannula 2.0 12/14/19 20:00 98.4 100 19 123/65 (84) 95 12/14/19 16:00 98.9 109 20 156/77 (103) 93 12/14/19 13:53 118/59 12/14/19 12:00 98.5 81 18 142/95 (111) 92 Intake and Output 12/14/19 12/15/19 19:00 07:00 Intake Total 1243 ml 450 ml Balance 1243 ml 450 ml Intake Oral 240 ml IV Total 1003 ml 450 ml # Voids 2 1 No blood results available today Height (Feet): 5 Height (Inches): 5.00 Weight (Pounds): 197 General Appearance: no apparent distress, confused Cardiovascular: tachycardia Respiratory/Chest: decreased breath sounds Abdomen: distended Brendan Elena MD December 15, 2019 11:22
[2019-12-15 12:00] VITALS: BP 147/69
[2019-12-15] MEDS: Phospha 250 Neutral tab ORAL SCH ×2 (12:22→17:11)
[2019-12-15] MEDS: Hydromorphone 0.5mg/0.5ml inj IVP PRN ×2 (12:23→20:21)
[2019-12-15 13:58] LABS: ALANINE AMINOTRANSFERASE 34 U/L (12-78); ALBUMIN 2.8 G/DL (3.4-5.0); ALBUMIN/GLOBULIN RATIO 0.8 (1.0-2.7); ALKALINE PHOSPHATASE 113 U/L (46-116); ANION GAP 12 mmol/L (5-15); ASPARTATE AMINO TRANSFERASE 26 U/L (15-37); BILIRUBIN,TOTAL 0.4 MG/DL (0.2-1.0); BLOOD UREA NITROGEN 22 mg/dL (7-18); CALCIUM 9.6 MG/DL (8.5-10.1); CARBON DIOXIDE 25 MMOL/L (21-32); CHLORIDE 111 MMOL/L (98-107); CREATININE 0.9 MG/DL (0.55-1.30); POTASSIUM 3.9 MMOL/L (3.5-5.1); SODIUM 148 MMOL/L (136-145)
[2019-12-15 16:00] VITALS: BP_SYST 129; BP_SYST 144; BP_DIAS 77
--- NOTE | 2019-12-15 16:41 | Infectious Diseases Prog Note ---
Assessment/Plan Problems: (1) Pneumonia Assessment & Plan: suspect due to altered mental status , and possible aspiration , already on cefepime empiric coverage for 7 days , monitor CXR (2) UTI (urinary tract infection) Assessment & Plan: with negative culture , suspect sterile pyuria , no need to treat , continue cefepime empiric coverage for possible pneumonia , monitor blood culture (3) Dehydration Assessment & Plan: Continue IV fluid for hydration with close monitoring of electrolytes (4) Episode of generalized weakness Assessment & Plan: Suspect due to the above continue hydration and antibiotics avoid narcotics (5) Altered mental state Assessment & Plan: Suspect due to the above with dehydration and renal failure continue supportive care with fluid and antibiotics monitor closely in telemetry (6) ROBYN (acute kidney injury) Assessment & Plan: Suspect nonsteroidal anti-inflammatory medications induced with dehydration, continue hydration avoid nephrotoxic's, renal eval (7) Suspected 2019 novel coronavirus infection Assessment & Plan: with negative PCR test may remove from enhanced droplet isolation Subjective Allergies: Coded Allergies: MORPHINE (Verified Allergy, Intermediate, HALLUCINATIONS, 03/03/13) Subjective she was awake and responsive, but confused and oriented x 1 , no fever or chills no cough or shortness of breath and no diarrhea Objective Vital Signs Last 24 Hour Vital Signs Date Time Temp Pulse Resp B/P (MAP) Pulse Ox O2 Delivery O2 Flow Rate FiO2 12/15/19 16:00 98.0 79 17 144/77 (99) 95 12/15/19 14:05 121/57 12/15/19 12:00 98.6 72 18 147/69 (95) 97 12/15/19 09:00 89 158/95 12/15/19 09:00 89 158/95 12/15/19 09:00 Nasal Cannula 2.0 12/15/19 08:00 97.7 89 20 158/95 (116) 95 12/15/19 05:30 124/67 12/15/19 04:00 97.6 98 20 124/67 (86) 98 12/15/19 00:00 98.0 101 19 118/68 (85) 96 12/14/19 22:00 118/68 12/14/19 21:33 100 123/65 12/14/19 21:00 Nasal Cannula 2.0 12/14/19 20:00 98.4 100 19 123/65 (84) 95 Height (Feet): 5 Height (Inches): 5.00 Weight (Pounds): 197 Laboratory Tests Test 12/15/19 12:25 Sodium Level 148 MMOL/L (136-145) H Potassium Level 3.9 MMOL/L (3.5-5.1) Chloride Level 111 MMOL/L (98-107) H Carbon Dioxide Level 25 MMOL/L (21-32) Anion Gap 12 mmol/L (5-15) Blood Urea Nitrogen 22 mg/dL (7-18) H Creatinine 0.9 MG/DL (0.55-1.30) Estimat Glomerular Filtration Rate > 60 mL/min (>60) Glucose Level 115 MG/DL (74-106) H Calcium Level 9.6 MG/DL (8.5-10.1) Total Bilirubin 0.4 MG/DL (0.2-1.0) Aspartate Amino Transf (AST/SGOT) 26 U/L (15-37) Alanine Aminotransferase (ALT/SGPT) 34 U/L (12-78) Alkaline Phosphatase 113 U/L (46-116) Total Protein 6.4 G/DL (6.4-8.2) Albumin 2.8 G/DL (3.4-5.0) L Globulin 3.6 g/dL Albumin/Globulin Ratio 0.8 (1.0-2.7) L Current Medications Medications (Trade) Dose Ordered Sig/Myron Route PRN Reason Start Time Stop Time Status Last Admin Dose Admin Acetaminophen (Tylenol) 650 mg Q6H PRN ORAL Mild Pain (Pain Scale 1-3) 12/14/19 03:45 01/07/20 21:44 Acetaminophen/ Hydrocodone Bitart ([place] 5/325) 1 tab Q6H PRN ORAL Moderate Pain (Pain Scale 4-6) 12/14/19 04:00 12/15/19 21:59 12/14/19 05:38 Amlodipine Besylate (Norvasc) 5 mg DAILY ORAL 12/15/19 09:00 01/14/20 08:59 12/15/19 09:00 Cefepime HCl 1 gm/ Dextrose 55 ml @ 110 mls/hr Q24H IVPB 12/14/19 21:00 12/15/19 20:59 12/14/19 21:29 Dextrose (Dextrose 50%) 25 ml Q30M PRN IV Hypoglycemia 12/14/19 01:15 03/07/20 21:44 Dextrose (Dextrose 50%) 50 ml Q30M PRN IV Hypoglycemia 12/14/19 01:15 03/07/20 21:44 Dextrose/Sodium Chloride 1,000 ml @ 50 mls/hr Q20H IV 12/14/19 00:45 01/10/20 13:59 12/14/19 21:28 Docusate Sodium (Colace) 100 mg THREE TIMES A DAY ORAL 12/14/19 09:00 01/08/20 08:59 12/15/19 12:22 Heparin Sodium (Porcine) (Heparin 5000 units/ml) 5,000 units EVERY 12 HOURS SUBQ 12/14/19 09:00 01/23/20 08:59 12/15/19 09:00 Hydralazine HCl (Apresoline) 25 mg Q4H PRN ORAL Blood pressure over 160 systol 12/14/19 04:15 03/08/20 08:14 12/14/19 04:06 Hydralazine HCl (Apresoline) 50 mg EVERY 8 HOURS ORAL 12/14/19 06:00 03/09/20 12:14 12/15/19 14:05 Hydromorphone HCl (Dilaudid) 0.5 mg Q6H PRN IVP Severe Pain (Pain Scale 7-10) 12/14/19 04:00 12/15/19 21:59 12/15/19 12:23 Insulin Aspart (NovoLOG) BEFORE MEALS AND HS SUBQ 12/14/19 06:30 03/08/20 06:29 12/14/19 21:32 Lorazepam (Ativan 2mg/ml 1ml) 1 mg Q6H PRN IV For Anxiety 12/14/19 03:45 12/15/19 21:44 12/15/19 01:39 Metoprolol Tartrate (Lopressor) 100 mg Q12HR ORAL 12/15/19 09:00 03/14/20 08:59 12/15/19 09:00 Ondansetron HCl (Zofran) 4 mg Q6H PRN IVP Nausea & Vomiting 12/14/19 06:15 01/12/20 12:14 Pantoprazole (Protonix) 40 mg Q12HR ORAL 12/14/19 09:00 01/08/20 08:59 12/15/19 09:00 Phosphorus (Phospha 250 Neutral) 500 mg THREE TIMES A DAY ORAL 12/15/19 13:00 01/14/20 12:59 12/15/19 12:22 Potassium Chloride (K-Dur) 40 meq TWICE A DAY ORAL 12/14/19 09:00 03/13/20 08:59 12/15/19 09:00 Reece Rocha M.D. December 15, 2019 16:41
[2019-12-15] MEDS: D5 1/2NS 1,000 ML IV SCH (17:11)
--- NOTE | 2019-12-15 19:00 | NUR ---
HAND-OFF: Report given to Mary Jo NAPIER.
--- NOTE | 2019-12-15 19:20 | NUR ---
NURSE NOTES: Received report from KARTHIKEYAN Raza. Pt is restless, yelling, on NC 2L. No labored breathing. Left foot with brace d/t FX noted. IV site intact and running IVF. Aspiration and fall precaution maintained. Bed in the lowest position and locked, alarm on, side rails up, call light within reach. Will continue to provide plan of care.
[2019-12-15 20:00] VITALS: BP 144/79
--- NOTE | 2019-12-15 22:12 | General Progress Note ---
Assessment/Plan Status: stable Assessment/Plan: S: limted verbal communication O: agitated. poor historian. seems comfortable. PHYSICAL EXAMINATION:HEAD AND NECK: Atraumatic and normocephalic. CHEST: Clear to auscultation.HEART: S1, S2. Regular rate and rhythm. ABDOMEN: Soft. No organomegaly.MUSCULOSKELETAL: Positive for the spontaneous movements of upper extremity. Limited evaluation for the lower extremity as the patient is moving leg and is following commands. LABORATORY Medication AND DIAGNOSTIC DATA: dated December 14 reviewed ASSESSMENT: 1. Acute metabolic encephalopathy. 2. UTI. 3. Pulmonary infiltrations. Possibility of COVID. 4. Chronic encephalomalacia. 5. Psychiatric disorder. 6. Chronic pain. 7. GI and DVT prophylaxis. PLAN OF CARE: start PO bp medication current empirical abx I spoke to her daughter on December 08, at appx 5 PM and on December 12 at 1215 hours. I discussed overal medical cnd with her Initiate and will titrate Hydralazin to optimize BP PT / OT Advance feeding as tolerated DC home with C once medically stable. Subjective Allergies: Coded Allergies: MORPHINE (Verified Allergy, Intermediate, HALLUCINATIONS, 03/03/13) Objective Last 24 Hour Vital Signs Date Time Temp Pulse Resp B/P (MAP) Pulse Ox O2 Delivery O2 Flow Rate FiO2 12/15/19 21:42 144/79 12/15/19 20:20 93 144/79 12/15/19 20:00 98.6 93 18 144/79 (100) 96 12/15/19 19:39 Nasal Cannula 2.0 12/15/19 16:00 98.0 79 17 144/77 (99) 95 12/15/19 14:05 121/57 12/15/19 12:00 98.6 72 18 147/69 (95) 97 12/15/19 09:00 89 158/95 12/15/19 09:00 89 158/95 12/15/19 09:00 Nasal Cannula 2.0 12/15/19 08:00 97.7 89 20 158/95 (116) 95 12/15/19 05:30 124/67 12/15/19 04:00 97.6 98 20 124/67 (86) 98 12/15/19 00:00 98.0 101 19 118/68 (85) 96 Intake and Output 12/14/19 12/15/19 19:00 07:00 Intake Total 1243 ml 450 ml Balance 1243 ml 450 ml Intake Oral 240 ml IV Total 1003 ml 450 ml # Voids 2 1 Laboratory Tests 12/15/19 12:25: Sodium Level 148H, Potassium Level 3.9, Chloride Level 111H, Carbon Dioxide Level 25, Anion Gap 12, Blood Urea Nitrogen 22H, Creatinine 0.9, Estimat Glomerular Filtration Rate > 60, Glucose Level 115H, Calcium Level 9.6, Total Bilirubin 0.4, Aspartate Amino Transf (AST/SGOT) 26, Alanine Aminotransferase ( ALT/SGPT) 34, Alkaline Phosphatase 113, Total Protein 6.4, Albumin 2.8L, Globulin 3.6, Albumin/Globulin Ratio 0.8L Height (Feet): 5 Height (Inches): 5.00 Weight (Pounds): 197 Jania Choudhary MD December 15, 2019 22:11
--- NOTE | 2019-12-15 23:14 | Cardiology Progress Note ---
Assessment/Plan Assessment/Plan 1. Extreme fatigue and SOB, with bilateral infiltration ox CXR with associated lymphopenia and elevated D-dimer, negative for COVID-19 infection. Continue ID follow up. 2. Elevated brain natriuretic peptide, 2D echocardiography shows normal LV systolic function with LVEF at 60% and mild pulmonary HTN. 3. Dyslipidemia. 4. Acute kidney injury, resolved. 5. HTN, well controlled, optimize metoprolol and amlodipine. Subjective Subjective No cardiac symptoms are reported. Objective Last 24 Hour Vital Signs Date Time Temp Pulse Resp B/P (MAP) Pulse Ox O2 Delivery O2 Flow Rate FiO2 12/15/19 21:42 144/79 12/15/19 20:20 93 144/79 12/15/19 20:00 98.6 93 18 144/79 (100) 96 12/15/19 19:39 Nasal Cannula 2.0 12/15/19 16:00 98.0 79 17 144/77 (99) 95 12/15/19 14:05 121/57 12/15/19 12:00 98.6 72 18 147/69 (95) 97 12/15/19 09:00 89 158/95 12/15/19 09:00 89 158/95 12/15/19 09:00 Nasal Cannula 2.0 12/15/19 08:00 97.7 89 20 158/95 (116) 95 12/15/19 05:30 124/67 12/15/19 04:00 97.6 98 20 124/67 (86) 98 12/15/19 00:00 98.0 101 19 118/68 (85) 96 Intake and Output 12/14/19 12/15/19 19:00 07:00 Intake Total 1243 ml 450 ml Balance 1243 ml 450 ml Intake Oral 240 ml IV Total 1003 ml 450 ml # Voids 2 1 2D Echo: EF 60%, Grade I LVDD, RVSP 39 mmHg, MIld MR, Mild-Mod AR Laboratory Tests Test 12/15/19 12:25 Sodium Level 148 MMOL/L (136-145) H Potassium Level 3.9 MMOL/L (3.5-5.1) Chloride Level 111 MMOL/L (98-107) H Carbon Dioxide Level 25 MMOL/L (21-32) Anion Gap 12 mmol/L (5-15) Blood Urea Nitrogen 22 mg/dL (7-18) H Creatinine 0.9 MG/DL (0.55-1.30) Estimat Glomerular Filtration Rate > 60 mL/min (>60) Glucose Level 115 MG/DL (74-106) H Calcium Level 9.6 MG/DL (8.5-10.1) Total Bilirubin 0.4 MG/DL (0.2-1.0) Aspartate Amino Transf (AST/SGOT) 26 U/L (15-37) Alanine Aminotransferase (ALT/SGPT) 34 U/L (12-78) Alkaline Phosphatase 113 U/L (46-116) Total Protein 6.4 G/DL (6.4-8.2) Albumin 2.8 G/DL (3.4-5.0) L Globulin 3.6 g/dL Albumin/Globulin Ratio 0.8 (1.0-2.7) L Objective HEENT: Atraumatic and normocephalic. Anicteric. Pupils are equal, round, and reactive to light and accommodation. Extraocular muscles intact. NECK: JVP less than 5 cm. No carotid bruit. Carotid upstrokes 2+ bilaterally. CARDIOVASCULAR: Normal S1, S2. Regular rate and rhythm. No murmurs, gallops, or rubs. PMI is at fourth intercostal space in the midclavicular line. LUNGS: Clear to auscultation bilaterally. ABDOMEN: Soft, nontender, and nondistended. No hepatosplenomegaly. Positive bowel sounds. EXTREMITIES: No evidence of edema, clubbing, or cyanosis. Art Mayberry MD December 15, 2019 23:14
--- NOTE | 2019-12-15 23:59 | NUR ---
NURSE NOTES: Ativan and dilaudid fell off from eMAR. Per Dr. Choudhary, ok to continue them. Order carried out
[2019-12-16 00:01] VITALS: BP 150/82
[2019-12-16] MEDS: LORazepam Inj 2mg/ml 1ml IV PRN ×2 (01:31→14:11)
[2019-12-16 04:00] VITALS: BP 146/83
[2019-12-16] MEDS: Hydromorphone 0.5mg/0.5ml inj IVP PRN ×2 (05:09→11:24)
[2019-12-16] MEDS: HydrALAZINE 50mg tab ORAL SCH ×2 (05:09→14:05)
[2019-12-16] MEDS: NovoLOG Insulin Flexpen SUBQ SCH ×3 (05:12→16:30)
[2019-12-16 07:06] LABS: BASOPHILS % (AUTO) 0.9 % (0.0-2.0); EOSINOPHILS % (AUTO) 3.6 % (0.0-3.0); HEMATOCRIT 27.1 % (37.0-47.0); HEMOGLOBIN 9.1 G/DL (12.0-16.0); LYMPHOCYTES % (AUTO) 16.2 % (20.0-45.0); MEAN CORPUSCULAR VOLUME 89 FL (80-99); MONOCYTES % (AUTO) 10.6 % (1.0-10.0); NEUTROPHILS % (AUTO) 68.7 % (45.0-75.0); PLATELET COUNT 191 K/UL (150-450); RED BLOOD COUNT 3.05 M/UL (4.20-5.40); RED CELL DISTRIBUTION WIDTH 14.4 % (11.6-14.8)
--- NOTE | 2019-12-16 07:29 | NUR ---
HAND-OFF: Report given to KARTHIKEYAN Morejon.
[2019-12-16 07:59] LABS: ALANINE AMINOTRANSFERASE 28 U/L (12-78); ALBUMIN 2.5 G/DL (3.4-5.0); ALBUMIN/GLOBULIN RATIO 0.7 (1.0-2.7); ALKALINE PHOSPHATASE 95 U/L (46-116); ANION GAP 10 mmol/L (5-15); ASPARTATE AMINO TRANSFERASE 21 U/L (15-37); BILIRUBIN,TOTAL 0.3 MG/DL (0.2-1.0); BLOOD UREA NITROGEN 17 mg/dL (7-18); CALCIUM 8.5 MG/DL (8.5-10.1); CARBON DIOXIDE 25 MMOL/L (21-32); CHLORIDE 111 MMOL/L (98-107); CREATININE 0.9 MG/DL (0.55-1.30); PHOSPHORUS 3.6 MG/DL (2.5-4.9); POTASSIUM 3.3 MMOL/L (3.5-5.1); SODIUM 146 MMOL/L (136-145)
[2019-12-16 08:00] VITALS: BP 154/87
--- NOTE | 2019-12-16 08:56 | NUR ---
RD ASSESSMENT & RECOMMENDATIONS SEE CARE ACTIVITY FOR COMPLETE ASSESSMENT DAILY ESTIMATED NEEDS: Needs based on pulmonary 65kg abw 25-30 kcals/kg 8842-1632 total kcals 1-1.5 g protein/kg 65-98 g total protein 25-30 mL/kg 6640-1838 total fluid mLs NUTRITION DIAGNOSIS: Altered nutrition related lab values r/t clinical status as evidenced by elev K(5.5-> 3.3), elev phos (6.1-> 2.0-> wnl), elev mg(2.6-> wnl-> 1.7), elev BUN/creat(54/2.8, now wnl). CURRENT DIET:Low Na/ liquify pureed w/ thin PO DIET RECOMMENDATIONS: Liberalized REGULAR w/ poor PO (texture per [employer]) ADDITIONAL RECOMMENDATIONS: 1) Monitor PO intake, improved since adm but remains variable/poor -> rec liberalized regular diet w/ continued poor PO -> Low Na diet w/ PO intake consistently >50% 2) Monitor lytes, replete as needed (low K and mag) 3) Updated calibrated bed scale wts 4) Ensure Enlive TID w/ meals 5) MVI x 1 as supplement
--- NOTE | 2019-12-16 09:06 | Pulmonology Progress Note ---
Subjective ROS Limited/Unobtainable: No Interval Events: None new reported Constitutional: Reports: fatigue HEENT: Repors: no symptoms Respiratory: Reports: no symptoms Cardiovascular: Reports: no symptoms Gastrointestinal/Abdominal: Reports: no symptoms Psychiatric: Reports: no symptoms Skin: Reports: no symptoms Musculoskeletal: Reports: no symptoms Allergies: Coded Allergies: MORPHINE (Verified Allergy, Intermediate, HALLUCINATIONS, 03/03/13) Objective Last 24 Hour Vital Signs Date Time Temp Pulse Resp B/P (MAP) Pulse Ox O2 Delivery O2 Flow Rate FiO2 12/16/19 05:09 146/83 12/16/19 04:00 98.4 90 18 146/83 (104) 95 12/16/19 00:01 98.6 87 18 150/82 (104) 95 12/15/19 21:42 144/79 12/15/19 20:20 93 144/79 12/15/19 20:00 98.6 93 18 144/79 (100) 96 12/15/19 19:39 Nasal Cannula 2.0 12/15/19 16:00 98.0 79 17 144/77 (99) 95 12/15/19 14:05 121/57 12/15/19 12:00 98.6 72 18 147/69 (95) 97 Intake and Output 12/15/19 12/16/19 19:00 07:00 Intake Total 600 ml 900 ml Balance 600 ml 900 ml IV Total 600 ml 600 ml Other 300 ml # Voids 3 General Appearance: no acute distress HEENT: normocephalic Respiratory: chest wall non-tender Cardiovascular: normal peripheral pulses Abdomen: normal bowel sounds Laboratory Tests 12/15/19 12:25: Sodium Level 148H, Potassium Level 3.9, Chloride Level 111H, Carbon Dioxide Level 25, Anion Gap 12, Blood Urea Nitrogen 22H, Creatinine 0.9, Estimat Glomerular Filtration Rate > 60, Glucose Level 115H, Calcium Level 9.6, Total Bilirubin 0.4, Aspartate Amino Transf (AST/SGOT) 26, Alanine Aminotransferase ( ALT/SGPT) 34, Alkaline Phosphatase 113, Total Protein 6.4, Albumin 2.8L, Globulin 3.6, Albumin/Globulin Ratio 0.8L 12/16/19 05:50: Sodium Level 146H, Potassium Level 3.3L, Chloride Level 111H, Carbon Dioxide Level 25, Anion Gap 10, Blood Urea Nitrogen 17, Creatinine 0.9, Estimat Glomerular Filtration Rate > 60, Glucose Level 104, Calcium Level 8.5, Total Bilirubin 0.3, Aspartate Amino Transf (AST/SGOT) 21, Alanine Aminotransferase ( ALT/SGPT) 28, Alkaline Phosphatase 95, Total Protein 6.0L, Albumin 2.5L, Globulin 3.5, Albumin/Globulin Ratio 0.7L, White Blood Count 9.0, Red Blood Count 3.05L, Hemoglobin 9.1L, Hematocrit 27.1L, Mean Corpuscular Volume 89, Mean Corpuscular Hemoglobin 29.9, Mean Corpuscular Hemoglobin Concent 33.6, Red Cell Distribution Width 14.4, Platelet Count 191, Mean Platelet Volume 7.4, Neutrophils (%) (Auto) 68.7, Lymphocytes (%) (Auto) 16.2L, Monocytes (%) (Auto) 10.6H, Eosinophils (%) (Auto) 3.6H, Basophils (%) (Auto) 0.9, Uric Acid 3.4, Phosphorus Level 3.6, Magnesium Level 1.7L, Lactate Dehydrogenase 249H, C- Reactive Protein, Quantitative 5.1H, Pro-B-Type Natriuretic Peptide 3535H Current Medications Medications (Trade) Dose Ordered Sig/Myron Route PRN Reason Start Time Stop Time Status Last Admin Dose Admin Acetaminophen (Tylenol) 650 mg Q6H PRN ORAL Mild Pain (Pain Scale 1-3) 12/14/19 03:45 01/07/20 21:44 Amlodipine Besylate (Norvasc) 5 mg DAILY ORAL 12/15/19 09:00 01/14/20 08:59 12/15/19 09:00 Dextrose (Dextrose 50%) 25 ml Q30M PRN IV Hypoglycemia 12/14/19 01:15 03/07/20 21:44 Dextrose (Dextrose 50%) 50 ml Q30M PRN IV Hypoglycemia 12/14/19 01:15 03/07/20 21:44 Dextrose/Sodium Chloride 1,000 ml @ 50 mls/hr Q20H IV 12/14/19 00:45 01/10/20 13:59 12/15/19 17:11 Docusate Sodium (Colace) 100 mg THREE TIMES A DAY ORAL 12/14/19 09:00 01/08/20 08:59 12/15/19 17:11 Heparin Sodium (Porcine) (Heparin 5000 units/ml) 5,000 units EVERY 12 HOURS SUBQ 12/14/19 09:00 01/23/20 08:59 12/15/19 20:14 Hydralazine HCl (Apresoline) 25 mg Q4H PRN ORAL Blood pressure over 160 systol 12/14/19 04:15 03/08/20 08:14 12/14/19 04:06 Hydralazine HCl (Apresoline) 50 mg EVERY 8 HOURS ORAL 12/14/19 06:00 03/09/20 12:14 12/16/19 05:09 Hydromorphone HCl (Dilaudid) 0.5 mg Q6HR PRN IVP Severe Pain (Pain Scale 7-10) 12/16/19 00:00 12/23/19 00:00 12/16/19 05:09 Insulin Aspart (NovoLOG) BEFORE MEALS AND HS SUBQ 12/14/19 06:30 03/08/20 06:29 12/14/19 21:32 Lorazepam (Ativan 2mg/ml 1ml) 1 mg EVERY 6 HOURS PRN IV For Anxiety 12/16/19 00:00 12/23/19 00:00 12/16/19 01:31 Magnesium Oxide (Mag-Ox 400mg) 400 mg THREE TIMES A DAY ORAL 12/16/19 09:00 01/15/20 08:59 Metoprolol Tartrate (Lopressor) 100 mg Q12HR ORAL 12/15/19 09:00 03/14/20 08:59 12/15/19 20:20 Ondansetron HCl (Zofran) 4 mg Q6H PRN IVP Nausea & Vomiting 12/14/19 06:15 01/12/20 12:14 Pantoprazole (Protonix) 40 mg Q12HR ORAL 12/14/19 09:00 01/08/20 08:59 12/15/19 20:13 Potassium Chloride (K-Dur) 40 meq DAILY ORAL 12/16/19 09:00 03/15/20 08:59 Assessment/Plan Assessment/Plan IMPRESSION: 1. Failure to thrive 2. Dementia. 3. Possible UTI. 4. Atelectasis. DISCUSSION: Continue antibiotics. I will follow carefully. Currently saturating well on low-flow oxygen. SaO2 96% on 2L/min Taina Ledesma,Francis Ochoa MD December 16, 2019 09:06
[2019-12-16] MEDS: Metoprolol Tartrate 100mg tab ORAL SCH (11:18)
[2019-12-16] MEDS: Docusate 100mg cap ORAL SCH ×4 (11:18→18:39)
[2019-12-16] MEDS: Magnesium Oxide 400mg tab ORAL SCH ×4 (11:19→18:40)
[2019-12-16] MEDS: Heparin 5000 units/ml inj SUBQ SCH (11:21)
--- NOTE | 2019-12-16 11:40 | Nephrology Progress Note ---
Assessment/Plan Problem List: (1) ROBYN (acute kidney injury) Assessment: Improved (2) Dehydration (3) UTI (urinary tract infection) (4) Sepsis (5) Hyperkalemia (6) Hypertension Assessment Renal failure most likely acute on chronic, patient medication list included Celebrex and ibuprofen Sepsis, pneumonia, suspected COVID-19 infection Hyperkalemia on presentation to the ER Anemia UTI Toxic metabolic encephalopathy with history of dementia Plan COVID-19 test negative done December 07 Potassium supplement as needed Check labs for tomorrow potassium, phosphorus, magnesium supplement as needed Slow hydration Adjust blood pressure medication Hold nonsteroidal anti-inflammatories Avoid nephrotoxic's Monitor renal parameters and urine output Castillo catheter Kidney ultrasound initially ordered was never done ! at this time renal parameters normalized Anemia work-up Per orders Subjective ROS Limited/Unobtainable: No Constitutional: Reports: malaise, weakness Objective Objective Last 24 Hour Vital Signs Date Time Temp Pulse Resp B/P (MAP) Pulse Ox O2 Delivery O2 Flow Rate FiO2 12/16/19 11:19 90 146/83 12/16/19 11:18 90 146/83 12/16/19 05:09 146/83 12/16/19 04:00 98.4 90 18 146/83 (104) 95 12/16/19 00:01 98.6 87 18 150/82 (104) 95 12/15/19 21:42 144/79 12/15/19 20:20 93 144/79 12/15/19 20:00 98.6 93 18 144/79 (100) 96 12/15/19 19:39 Nasal Cannula 2.0 12/15/19 16:00 98.0 79 17 144/77 (99) 95 12/15/19 14:05 121/57 12/15/19 12:00 98.6 72 18 147/69 (95) 97 Intake and Output 12/15/19 12/16/19 19:00 07:00 Intake Total 600 ml 900 ml Balance 600 ml 900 ml IV Total 600 ml 600 ml Other 300 ml # Voids 3 Laboratory Tests 12/15/19 12:25: Sodium Level 148H, Potassium Level 3.9, Chloride Level 111H, Carbon Dioxide Level 25, Anion Gap 12, Blood Urea Nitrogen 22H, Creatinine 0.9, Estimat Glomerular Filtration Rate > 60, Glucose Level 115H, Calcium Level 9.6, Total Bilirubin 0.4, Aspartate Amino Transf (AST/SGOT) 26, Alanine Aminotransferase ( ALT/SGPT) 34, Alkaline Phosphatase 113, Total Protein 6.4, Albumin 2.8L, Globulin 3.6, Albumin/Globulin Ratio 0.8L 12/16/19 05:50: Sodium Level 146H, Potassium Level 3.3L, Chloride Level 111H, Carbon Dioxide Level 25, Anion Gap 10, Blood Urea Nitrogen 17, Creatinine 0.9, Estimat Glomerular Filtration Rate > 60, Glucose Level 104, Calcium Level 8.5, Total Bilirubin 0.3, Aspartate Amino Transf (AST/SGOT) 21, Alanine Aminotransferase ( ALT/SGPT) 28, Alkaline Phosphatase 95, Total Protein 6.0L, Albumin 2.5L, Globulin 3.5, Albumin/Globulin Ratio 0.7L, White Blood Count 9.0, Red Blood Count 3.05L, Hemoglobin 9.1L, Hematocrit 27.1L, Mean Corpuscular Volume 89, Mean Corpuscular Hemoglobin 29.9, Mean Corpuscular Hemoglobin Concent 33.6, Red Cell Distribution Width 14.4, Platelet Count 191, Mean Platelet Volume 7.4, Neutrophils (%) (Auto) 68.7, Lymphocytes (%) (Auto) 16.2L, Monocytes (%) (Auto) 10.6H, Eosinophils (%) (Auto) 3.6H, Basophils (%) (Auto) 0.9, Uric Acid 3.4, Phosphorus Level 3.6, Magnesium Level 1.7L, Lactate Dehydrogenase 249H, C- Reactive Protein, Quantitative 5.1H, Pro-B-Type Natriuretic Peptide 3535H Height (Feet): 5 Height (Inches): 5.00 Weight (Pounds): 197 General Appearance: no apparent distress Cardiovascular: tachycardia Respiratory/Chest: decreased breath sounds Abdomen: soft, distended Brendan Elena MD December 16, 2019 11:40
[2019-12-16 12:00] VITALS: BP 154/82
--- NOTE | 2019-12-16 13:30 | Cardiology Progress Note ---
Assessment/Plan Assessment/Plan 1. Extreme fatigue and SOB, with bilateral infiltration ox CXR with associated lymphopenia and elevated D-dimer, negative for COVID-19 infection. Continue ID follow up. 2. Elevated brain natriuretic peptide, 2D echocardiography shows normal LV systolic function with LVEF at 60% and mild pulmonary HTN. 3. Dyslipidemia. 4. Acute kidney injury, resolved. 5. HTN, well controlled, optimize metoprolol and amlodipine. Subjective Subjective No cardiac symptoms are reported. Denies chest pain or SOB. Objective Last 24 Hour Vital Signs Date Time Temp Pulse Resp B/P (MAP) Pulse Ox O2 Delivery O2 Flow Rate FiO2 12/16/19 11:54 98.4 12/16/19 11:19 90 146/83 12/16/19 11:18 90 146/83 12/16/19 05:09 146/83 12/16/19 04:00 98.4 90 18 146/83 (104) 95 12/16/19 00:01 98.6 87 18 150/82 (104) 95 12/15/19 21:42 144/79 12/15/19 20:20 93 144/79 12/15/19 20:00 98.6 93 18 144/79 (100) 96 12/15/19 19:39 Nasal Cannula 2.0 12/15/19 16:00 98.0 79 17 144/77 (99) 95 12/15/19 14:05 121/57 Intake and Output 12/15/19 12/16/19 19:00 07:00 Intake Total 600 ml 900 ml Balance 600 ml 900 ml IV Total 600 ml 600 ml Other 300 ml # Voids 3 2D Echo: EF 60%, Grade I LVDD, RVSP 39 mmHg, MIld MR, Mild-Mod AR Laboratory Tests Test 12/16/19 05:50 White Blood Count 9.0 K/UL (4.8-10.8) Red Blood Count 3.05 M/UL (4.20-5.40) L Hemoglobin 9.1 G/DL (12.0-16.0) L Hematocrit 27.1 % (37.0-47.0) L Mean Corpuscular Volume 89 FL (80-99) Mean Corpuscular Hemoglobin 29.9 PG (27.0-31.0) Mean Corpuscular Hemoglobin Concent 33.6 G/DL (32.0-36.0) Red Cell Distribution Width 14.4 % (11.6-14.8) Platelet Count 191 K/UL (150-450) Mean Platelet Volume 7.4 FL (6.5-10.1) Neutrophils (%) (Auto) 68.7 % (45.0-75.0) Lymphocytes (%) (Auto) 16.2 % (20.0-45.0) L Monocytes (%) (Auto) 10.6 % (1.0-10.0) H Eosinophils (%) (Auto) 3.6 % (0.0-3.0) H Basophils (%) (Auto) 0.9 % (0.0-2.0) Sodium Level 146 MMOL/L (136-145) H Potassium Level 3.3 MMOL/L (3.5-5.1) L Chloride Level 111 MMOL/L (98-107) H Carbon Dioxide Level 25 MMOL/L (21-32) Anion Gap 10 mmol/L (5-15) Blood Urea Nitrogen 17 mg/dL (7-18) Creatinine 0.9 MG/DL (0.55-1.30) Estimat Glomerular Filtration Rate > 60 mL/min (>60) Glucose Level 104 MG/DL (74-106) Uric Acid 3.4 MG/DL (2.6-7.2) Calcium Level 8.5 MG/DL (8.5-10.1) Phosphorus Level 3.6 MG/DL (2.5-4.9) Magnesium Level 1.7 MG/DL (1.8-2.4) L Total Bilirubin 0.3 MG/DL (0.2-1.0) Aspartate Amino Transf (AST/SGOT) 21 U/L (15-37) Alanine Aminotransferase (ALT/SGPT) 28 U/L (12-78) Alkaline Phosphatase 95 U/L (46-116) Lactate Dehydrogenase 249 U/L (81-234) H C-Reactive Protein, Quantitative 5.1 mg/dL (0.00-0.90) H Pro-B-Type Natriuretic Peptide 3535 pg/mL (0-125) H Total Protein 6.0 G/DL (6.4-8.2) L Albumin 2.5 G/DL (3.4-5.0) L Globulin 3.5 g/dL Albumin/Globulin Ratio 0.7 (1.0-2.7) L Objective HEENT: Atraumatic and normocephalic. Anicteric. Pupils are equal, round, and reactive to light and accommodation. Extraocular muscles intact. NECK: JVP less than 5 cm. No carotid bruit. Carotid upstrokes 2+ bilaterally. CARDIOVASCULAR: Normal S1, S2. Regular rate and rhythm. 2/6 MSM at LSB, no gallops, or rubs. PMI is at fourth intercostal space in the midclavicular line. LUNGS: Clear to auscultation bilaterally. ABDOMEN: Soft, nontender, and nondistended. No hepatosplenomegaly. Positive bowel sounds. EXTREMITIES: No evidence of edema, clubbing, or cyanosis. Art Mayberry MD December 16, 2019 13:30
[2019-12-16] MEDS: D5 1/2NS 1,000 ML IV SCH (14:11)
--- NOTE | 2019-12-16 14:30 | NUR ---
*-* DISCHARGE PLANNING *-* PATIENT HAS BEEN REFERRED TO: [facility] P; [phone] F: [phone] Addendum: 12/16/19 at 1440 by FREDO GRAJEDA CM *-* S/W BERNIE HE WILL CALL US BACK SOON HE REVIEWS IT *-* Addendum: 12/16/19 at 1526 by FREDO GRAJEDA CM *-* S/Shreyas GIBBS FROM [facility] AND THEY HAVE AGREED TO FOLLOW PATIENT *-*
[2019-12-16] MEDS ORDERED: K-TAB ER20 MEQ ORAL (15:19)
[2019-12-16] MEDS ORDERED: NORVASC5 MG ORAL (15:19)
[2019-12-16] MEDS ORDERED: METOPROLOL TAR100 M1 ORAL (15:19)
[2019-12-16] MEDS ORDERED: APRESOLINE50 MG ORAL (15:19)
--- NOTE | 2019-12-16 15:21 | General Progress Note ---
Assessment/Plan Status: stable Assessment/Plan: S: limted verbal communication O: agitated. poor historian. seems comfortable. PHYSICAL EXAMINATION:HEAD AND NECK: Atraumatic and normocephalic. CHEST: Clear to auscultation.HEART: S1, S2. Regular rate and rhythm. ABDOMEN: Soft. No organomegaly.MUSCULOSKELETAL: Positive for the spontaneous movements of upper extremity. Limited evaluation for the lower extremity as the patient is moving leg and is following commands. LABORATORY Medication AND DIAGNOSTIC DATA: dated December 15 reviewed ASSESSMENT: 1. Acute metabolic encephalopathy. 2. UTI. 3. Pulmonary infiltrations. Possibility of COVID. 4. Chronic encephalomalacia. 5. Psychiatric disorder. 6. Chronic pain. 7. GI and DVT prophylaxis. PLAN OF CARE: start PO bp medication current empirical abx I spoke to her daughter on December 08, at appx 5 PM and on December 12 at 1215 hours. I discussed overal medical cnd with her Initiate and will titrate Hydralazin to optimize BP PT / OT Advance feeding as tolerated DC home with C once medically stable. Subjective Allergies: Coded Allergies: MORPHINE (Verified Allergy, Intermediate, HALLUCINATIONS, 03/03/13) Objective Last 24 Hour Vital Signs Date Time Temp Pulse Resp B/P (MAP) Pulse Ox O2 Delivery O2 Flow Rate FiO2 12/16/19 14:05 146/83 12/16/19 12:00 98.4 89 18 154/82 (106) 98 12/16/19 11:54 98.4 12/16/19 11:19 90 146/83 12/16/19 11:18 90 146/83 12/16/19 09:00 Nasal Cannula 2.0 12/16/19 08:00 98.4 89 20 154/87 (109) 95 12/16/19 05:09 146/83 12/16/19 04:00 98.4 90 18 146/83 (104) 95 12/16/19 00:01 98.6 87 18 150/82 (104) 95 12/15/19 21:42 144/79 12/15/19 20:20 93 144/79 12/15/19 20:00 98.6 93 18 144/79 (100) 96 12/15/19 19:39 Nasal Cannula 2.0 12/15/19 16:00 98.0 79 17 144/77 (99) 95 Intake and Output 12/15/19 12/16/19 19:00 07:00 Intake Total 600 ml 900 ml Balance 600 ml 900 ml IV Total 600 ml 600 ml Other 300 ml # Voids 3 Laboratory Tests 12/16/19 05:50: White Blood Count 9.0, Red Blood Count 3.05L, Hemoglobin 9.1L, Hematocrit 27.1L , Mean Corpuscular Volume 89, Mean Corpuscular Hemoglobin 29.9, Mean Corpuscular Hemoglobin Concent 33.6, Red Cell Distribution Width 14.4, Platelet Count 191, Mean Platelet Volume 7.4, Neutrophils (%) (Auto) 68.7, Lymphocytes (% ) (Auto) 16.2L, Monocytes (%) (Auto) 10.6H, Eosinophils (%) (Auto) 3.6H, Basophils (%) (Auto) 0.9, Sodium Level 146H, Potassium Level 3.3L, Chloride Level 111H, Carbon Dioxide Level 25, Anion Gap 10, Blood Urea Nitrogen 17, Creatinine 0.9, Estimat Glomerular Filtration Rate > 60, Glucose Level 104, Uric Acid 3.4, Calcium Level 8.5, Phosphorus Level 3.6, Magnesium Level 1.7L, Total Bilirubin 0.3, Aspartate Amino Transf (AST/SGOT) 21, Alanine Aminotransferase (ALT/SGPT) 28, Alkaline Phosphatase 95, Lactate Dehydrogenase 249H, C-Reactive Protein, Quantitative 5.1H, Pro-B-Type Natriuretic Peptide 3535H, Total Protein 6.0L, Albumin 2.5L, Globulin 3.5, Albumin/Globulin Ratio 0.7L Height (Feet): 5 Height (Inches): 5.00 Weight (Pounds): 197 Jania Choudhary MD December 16, 2019 15:21
[2019-12-16 16:00] VITALS: BP 134/75
--- NOTE | 2019-12-16 17:05 | NUR ---
NURSE NOTES: patient is being prepared for discharge, sat 89-91%, notified ELSA Levy, pt's daughter that was notified previously to pick patient up, and dr. Choudhary. Left message to dr Choudhary at . Awaiting his reply.
--- NOTE | 2019-12-16 18:08 | NUR ---
NURSE NOTES: left message to dr Portillo regarding patient saturation, between 89-93% in room air, awaiting reply.
[2019-12-16 18:39] VITALS: BP 134/75
--- NOTE | 2019-12-16 19:25 | NUR ---
NURSE NOTES: patient has been discharged to home, being picked up by yashira Kathleen on her vehicle. Patient is wheeled on wheelchair by NAILA Joe, patient's primary nurse on assistance but unable to wheel patient. At the hospital entrance DORA Mejia arrives and assists to bring pt from wheelchair to vehicle. IV access is taken off, no bleeding noted after site compression. Given to yashira Wang discharge packet and asked to sign Discharge preparation checklist. Patient in stable condition, no sign of respiratory distress sat 91-93% in room air.
--- NOTE | 2019-12-18 12:18 | Discharge Summary ---
Discharge Summary Discharge Summary _ DATE OF ADMISSION: 12/08/2019 DATE OF DISCHARGE: 12/16/2019 DISCHARGED BY: REASON FOR ADMISSION: 74 years old female with past medical history of hypertension, dementia, encephalomalacia, presented for evaluation due to extreme fatigue, altered mental status and loss of appetite. Patient apparently was in [place] [facility] 2 days ago for fracture of left foot. At that time she was also diagnosed with urinary tract infection. According to the family member, patient did take her antibiotic and pain medication , as it was prescribed on the prior visit. Patient seen by neurologist last month and everything within normal baseline. Upon evaluation vital signs were stable. Laboratory work-up revealed no leukocytosis, hemoglobin 11, hematocrit 35.5. Chemistry revealed evidence of renal failure with BUN 53, creatinine 3.4. Potassium 5.5. Lactic acid 0.9. Troponin negative. ProBNP 618. EKG revealed sinus rhythm,no acute ischemic changes. Urinalysis revealed +1 protein ,+3 leukocyte esterase, pyuria and many bacteria. Urine toxicology screen was positive for opiates. CT of the head revealed no acute intracranial abnormality. Chronic small vessel ischemic changes and cerebral volume loss. Chest x-ray demonstrated bibasilar opacity with atelectasis versus pneumonia. In emergency department hyperkalemia was treated, patient was swabbed for COVID- 19 , pancultured and admitted for further management. CONSULTANTS: procedural nurse Dr. Mayberry pulmonary Dr. Portillo ID specialist Dr Rocha senior publications specialist Dr. Elena [facility] COU[facility]SE: Patient admitted to isolation room. Patient started on IV hydration and empiric antibiotics. Supplemental oxygen provided and titrated to keep pulse oximetry above 92%. Pulse oximetry was stable on oxygen via nasal cannula. Blood cultures were negative. SARS-CoV2 by PCR on was not detected. Isolation was discontinued. Patient was followed-up with a chest x-ray. Patient was treated with antibiotic for pneumonia as per ID specialist recommendation. Venous duplex bilateral lower extremity was negative. Supplemental oxygen provided to keep pulse oximetry above 92% . Patient required nasal cannula. Renal ultrasound demonstrated no evidence of obstructive uropathy. Bilateral normal kidney echogenicity no hydronephrosis or stone. Renal parameters and electrolytes were closely monitored. Electrolytes corrected as needed. Renal ultrasound revealed no evidence of obstructive uropathy. Normal bilateral kidney echogenicity. No evidence of hydronephrosis or stones bilaterally. Prior to discharge BUN from 53 down to 17, creatinine from 3.4 down to 0.9. Acute kidney injury resolved. Likely was due to dehydration. Noted elevated brain natriuretic peptide. Echocardiogram revealed preserved ejection fraction with left ventricular ejection fraction estimated to be 60%. Mild pulmonary hypertension. No evidence of wall motion abnormality. Blood pressure was closely monitored and managed with beta-yareli and calcium channel yareli , remained stable. Lipid panel was stable. DVT and GI prophylaxis provided. Blood sugar was managed with sliding scale of insulin and remained stable. Hemoglobin A1c 6.0. Supportive care provided. Patient clinically stabilized and was ready for discharge home with home health services. FINAL DIAGNOSES: Acute kidney injury-resolved Dehydration Hyperkalemia -resolved Hypertension Acute metabolic encephalopathy Pneumonia Suspected COVID 19- ruled out Dementia Chronic encephalopathy Psychiatric disorder Chronic pain DISCHARGE MEDICATIONS: See Medication Reconciliation list. DISCHARGE INSTRUCTIONS: Patient was discharged home with home health services. Follow up with primary care provider in one week. I have been assigned to dictate discharge summary for this account. I was not involved in the patient's management. Neena Mcneal NP December 18, 2019 12:18
== END 2019-12-16 19:25 | disposition home health service (06) | DRG 682 ==
LOC: EMR 15:18 → EDBEDREQ 16:19 → 2E 16:45 → EDBEDREQ 18:35 → 2E 12-10 14:17 → 4E 12-13 23:21
DX: N17.9 Acute kidney failure, unspecified (principal); J18.9 Pneumonia, unspecified organism; G92 Toxic encephalopathy; N39.0 Urinary tract infection, site not specified; J98.11 Atelectasis; E87.5 Hyperkalemia; Z88.6 Allergy status to analgesic agent; G89.29 Other chronic pain; I10 Essential (primary) hypertension; F03.90 Unspecified dementia, unspecified severity, without behavioral disturbance, psychotic disturbance, mood disturbance, and anxiety; N18.9 Chronic kidney disease, unspecified; I12.9 Hypertensive chronic kidney disease with stage 1 through stage 4 chronic kidney disease, or unspecified chronic kidney disease; R62.7 Adult failure to thrive; I27.20 Pulmonary hypertension, unspecified
CPT/HCPCS: 36415; 70450; 71045; 76770; 80053; 80061; 80307; 81003; 82550; 82553; 82607; 82728; 82746; 82962; 82977; 83036; 83540; 83550; 83605; 83615; 83735; 83880; 84100; 84300; 84443; 84484; 84550; 85025; 85379; 85610; 85730; 86140; 87040; 87081; 87086; 87635; 93005; 93306; 93970; 96361; 96365; 96375; 96376; 99285; C9399; J1815; J7030; J8499